=== PATIENT | male | born 1990 | race Caucasian/White ===

== ENCOUNTER 2017-03-19 20:46 | Emergency (ER) | payer OTHER ==
[2017-03-19 21:00] VITALS: RESP 18
--- NOTE | 2017-03-19 21:58 | ED ---
Recheck HPI - General Chief Complaint: Recheck/Abnormal Lab/Rx Stated Complaint: Dr Sent/Recheck Time Seen by Provider: 03/19/17 21:48 Source: patient Mode of arrival: ambulatory Limitations: no limitations - History of Present Illness Initial Comments: Patient states that he needs a refill of his Dilantin. He also has a tooth infection. Patient has no fever or chills. He has no belly, back, chest pain. He has no neck pain or stiffness. He has not had a seizure today. He has no lightheadedness or dizziness. He has no weakness. He is tolerating oral intake. - Related Data Home Medications Medication Instructions Recorded Confirmed Gabapentin [Neurontin] 800 mg PO TID 06/25/14 10/30/15 Previous Rx's Medication Instructions Recorded HYDROcodone/APAP 5-325MG [Harris 1 each PO Q6HR PRN #20 tab 03/09/15 5-325] Hydrocodone/Acetaminophen [Harris 1 each PO Q6HR PRN #10 tab 10/30/15 5-325] Phenytoin Sodium Extended 100 mg PO TID #90 capsule 10/30/15 [Dilantin] Acetaminophen-Codeine 300-30mg 1 each PO Q4H PRN #20 tablet 07/26/16 [Tylenol w/codeine #3] Penicillin V Potassium [Pen Vee K] 500 mg PO QID #40 tab 07/26/16 Phenytoin Sodium Extended 100 mg PO TID #90 capsule 03/19/17 [Dilantin] Allergies Allergy/AdvReac Type Severity Reaction Status Date / Time naproxen Allergy Unknown Verified 03/19/17 21:00 ibuprofen AdvReac Testicular Verified 03/19/17 21:00 Pain pollen Allergy Diarrhea Uncoded 10/30/15 19:15 Review of Systems ROS Statement: Those systems with pertinent positive or pertinent negative responses have been documented in the HPI. ROS Other: All systems not noted in ROS Statement are negative. Past Medical History Past Medical History: Seizure Disorder Additional Past Medical History / Comment(s): chronic pain History of Any Multi-Drug Resistant Organisms: None Reported Additional Past Surgical History / Comment(s): left arm surgery Past Psychological History: Anxiety, Depression Smoking Status: Current every day smoker Past Alcohol Use History: Heavy Past Drug Use History: None Reported General Exam Limitations: no limitations General appearance: alert, in no apparent distress Head exam: Present: atraumatic, normocephalic, normal inspection Eye exam: Present: normal appearance, PERRL, EOMI. Absent: scleral icterus, conjunctival injection, periorbital swelling ENT exam: Present: normal exam, mucous membranes moist Neck exam: Present: normal inspection. Absent: tenderness, meningismus, lymphadenopathy Respiratory exam: Present: normal lung sounds bilaterally. Absent: respiratory distress, wheezes, rales, rhonchi, stridor Cardiovascular Exam: Present: regular rate, normal rhythm, normal heart sounds. Absent: systolic murmur, diastolic murmur, rubs, gallop, clicks GI/Abdominal exam: Present: soft, normal bowel sounds. Absent: distended, tenderness, guarding, rebound, rigid Extremities exam: Present: normal inspection, full ROM, normal capillary refill. Absent: tenderness, pedal edema, joint swelling, calf tenderness Back exam: Present: normal inspection Neurological exam: Present: alert, oriented X3, CN II-XII intact Psychiatric exam: Present: normal affect, normal mood Skin exam: Present: warm, dry, intact, normal color. Absent: rash Course Vital Signs 03/19/17 20:57 Temperature 97.4 F L Pulse Rate 104 H Respiratory 18 Rate Blood Pressure 138/113 O2 Sat by Pulse 96 Oximetry Medical Decision Making - Medical Decision Making Patient is requesting a refill of his Dilantin. I will provide this for him. Regarding the dental infection, there does not appear to be an abscess that would require drainage. His vital signs are normal. He has no neck pain or stiffness. He is tolerating oral intake. He is appropriate for outpatient antibiotic therapy. Disposition Clinical Impression: Encounter for medication refill Disposition: HOME SELF-CARE Condition: Good Instructions: Medicine Refill (ED), Gingivostomatitis (ED) Prescriptions: Phenytoin Sodium Extended [Dilantin] 100 mg PO TID #90 capsule Time of Disposition: 21:57
[2017-03-19 22:03] VITALS: BP 141/70; PULSE 80; TEMP 97.9
== END 2017-03-19 22:06 | disposition home or self-care (01) ==
LOC: EC 20:46
DX: Z76.0 Encounter for issue of repeat prescription (principal); G40.909 Epilepsy, unspecified, not intractable, without status epilepticus; F17.200 Nicotine dependence, unspecified, uncomplicated; Z79.899 Other long term (current) drug therapy; Z88.6 Allergy status to analgesic agent; Z91.048 Other nonmedicinal substance allergy status
CPT/HCPCS: 99282

== ENCOUNTER 2017-04-13 21:12 | Emergency (ER) | payer OTHER ==
--- NOTE | 2017-04-13 22:08 | XR ---
EXAMINATION TYPE: XR foot complete RT DATE OF EXAM: 04/13/2017 9:57 PM COMPARISON: NONE HISTORY: Foot pain TECHNIQUE: 3 views FINDINGS: I see no fracture nor dislocation. Metatarsals are intact. There are no erosions. IMPRESSION: Negative right foot exam.
--- NOTE | 2017-04-13 22:43 | ED ---
Lower Extremity Injury HPI - General Chief Complaint: Extremity Injury, Lower Stated Complaint: foot injury Time Seen by Provider: 04/13/17 21:43 Source: patient, RN notes reviewed, old records reviewed Mode of arrival: ambulatory Limitations: no limitations - History of Present Illness Initial Comments: 26 year old male with right foot pain after twisting it standing on rocks while fishing on Friday. PAtient reports that the pain has persisted since Friday, and needs pain medication. PAtient reports he was able to bear weight on the foot, denies decreased range of motion of toes. Patient reports pain is on lateral aspect of foot. Denies previous injury, peripheral paresthesias. - Related Data Home Medications Medication Instructions Recorded Confirmed Acetaminophen Tab [Tylenol Tab] 650 mg PO Q6HR PRN 03/19/17 03/19/17 Previous Rx's Medication Instructions Recorded Penicillin V Potassium [Pen Vee K] 500 mg PO QID #40 tab 03/19/17 Phenytoin Sodium Extended 100 mg PO TID #90 capsule 03/19/17 [Dilantin] Acetaminophen Tab [Tylenol Tab] 650 mg PO Q6H #20 tablet 04/13/17 Allergies Allergy/AdvReac Type Severity Reaction Status Date / Time naproxen Allergy Unknown Verified 04/13/17 21:45 ibuprofen AdvReac Testicular Verified 04/13/17 21:45 Pain pollen Allergy Diarrhea Uncoded 04/13/17 21:45 Review of Systems ROS Statement: Those systems with pertinent positive or pertinent negative responses have been documented in the HPI. ROS Other: All systems not noted in ROS Statement are negative. Past Medical History Past Medical History: Seizure Disorder Additional Past Medical History / Comment(s): chronic pain History of Any Multi-Drug Resistant Organisms: None Reported Additional Past Surgical History / Comment(s): left arm surgery Past Psychological History: Anxiety, Depression Smoking Status: Current every day smoker Past Alcohol Use History: Heavy Past Drug Use History: None Reported General Exam - General Exam Comments Initial Comments: Well appearing 26 year old male, no distress. Limitations: no limitations General appearance: alert, in no apparent distress Head exam: Present: atraumatic, normocephalic, normal inspection Eye exam: Present: normal appearance, PERRL, EOMI. Absent: scleral icterus, conjunctival injection, periorbital swelling ENT exam: Present: normal exam, mucous membranes moist Neck exam: Present: normal inspection. Absent: tenderness, meningismus, lymphadenopathy Respiratory exam: Present: normal lung sounds bilaterally. Absent: respiratory distress, wheezes, rales, rhonchi, stridor Cardiovascular Exam: Present: regular rate, normal rhythm, normal heart sounds. Absent: systolic murmur, diastolic murmur, rubs, gallop, clicks GI/Abdominal exam: Present: soft, normal bowel sounds. Absent: distended, tenderness, guarding, rebound, rigid Extremities exam: Present: normal inspection, full ROM, normal capillary refill , other (right foot mild tenderness to palpation over lateral aspect of foot, no swelling, erythema. Patient has full range of motion of ankle and toes. ). Absent: tenderness, pedal edema, joint swelling, calf tenderness Back exam: Present: normal inspection Neurological exam: Present: alert, oriented X3, CN II-XII intact Psychiatric exam: Present: normal affect, normal mood Skin exam: Present: warm, dry, intact, normal color. Absent: rash Course Vital Signs 04/13/17 04/13/17 21:42 22:55 Temperature 98.0 F 98 F Pulse Rate 93 78 Respiratory 18 20 Rate Blood Pressure 124/91 126/80 O2 Sat by Pulse 99 98 Oximetry Medical Decision Making - Medical Decision Making 26 year old male with right foot pain after twisting it standing on rocks while fishing on Friday. PAtient reports that the pain has persisted since Friday, and needs pain medication. PAtient reports he was able to bear weight on the foot, denies decreased range of motion of toes. Patient reports pain is on lateral aspect of foot. Denies previous injury, peripheral paresthesias. right foot mild tenderness to palpation over lateral aspect of foot, no swelling, erythema. Patient has full range of motion of ankle and toes. Xray negative. Patient given Rx for crutches, and jose wrap around foot. Disucssed taking tylenol for pain. Patient understands treatment plan and will comply. - Radiology Data Radiology results: report reviewed Negative right foot exam. Disposition Clinical Impression: Sprain of foot, right Disposition: HOME SELF-CARE Condition: Good Instructions: Foot Sprain (ED) Additional Instructions: Rest, ice, elevate foot. Wear Jose wrap. Take Motrin Tylenol for pain. Return to the emergency department if any alarming signs or symptoms occur. Patient can ambulate with crutches as well as follow-up with orthopedic physician of symptoms continue persist after 7-10 more days. Prescriptions: Acetaminophen Tab [Tylenol Tab] 650 mg PO Q6H #20 tablet Referrals: Uday Pennington Jr, DO [Primary Care Provider] - 1-2 days Yassine Lomeli MD [STAFF PHYSICIAN] - 1-2 days Time of Disposition: 22:40
[2017-04-13 22:55] VITALS: BP 126/80; PULSE 78; RESP 20; TEMP 98
--- NOTE | 2017-04-15 07:46 | CDI ---
Documentation Clarification OP Dear JACK Gould: Please do addendum to ED report for HPI and physical exam. Thank you, Padmini Borges Environmental Field Professional I f you have any question, Please contact computer security manager at [phone] mtdD
== END 2017-04-13 22:55 | disposition home or self-care (01) ==
LOC: EC 21:12
DX: S93.601A Unspecified sprain of right foot, initial encounter (principal); F17.200 Nicotine dependence, unspecified, uncomplicated; Z88.6 Allergy status to analgesic agent; Z91.048 Other nonmedicinal substance allergy status; X50.1XXA Overexertion from prolonged static or awkward postures, initial encounter; Y93.89 Activity, other specified
CPT/HCPCS: 99284

== ENCOUNTER 2017-08-30 12:43 | Emergency (ER) | payer OTHER ==
[2017-08-30] MEDS ORDERED: SODIUM CHLORIDE 0.9% 500 ML IV STA (12:58)
[2017-08-30] MEDS ORDERED: IPRATROPIUM-ALBUTEROL 3 ML NEB INHALATION STA (13:14)
[2017-08-30 13:39] LABS: Basophils % (A) 0 %; CH 33.3; CHCM 33.4; Eosinophils % (A) 1 %; HCT 54.5 % (39.0-53.0); HDW 2.28; Luc # (Auto) 0.05; Luc % (Auto) 1; Lymphocytes # (A) 0.7 k/uL (1.0-4.8); Lymphocytes % (A) 10 %; MCH 31.3 pg (25.0-35.0); MCHC 31.3 g/dL (31.0-37.0); MCV 100.2 fL (80.0-100.0); Macrocytosis Slight; Mean Platelet Volume 7.4; Monocytes # (A) 0.3 k/uL (0-1.0); Monocytes % (A) 4 %; Neutrophils # (A) 6.3 k/uL (1.3-7.7); Neutrophils % (A) 85 %; RBC 5.44 m/uL (4.30-5.90); RDW 14.6 % (11.5-15.5); WBC 7.4 k/uL (3.8-10.6); WBC (Perox) 7.08
--- NOTE | 2017-08-30 13:47 | XR ---
EXAMINATION TYPE: XR chest 2V DATE OF EXAM: 08/30/2017 HISTORY: Cough. REFERENCE: Previous study dated 10/30/2015. FINDINGS: The lungs are clear. Pleural space are clear. The heart is not enlarged. IMPRESSION: NORMAL CHEST.
[2017-08-30 13:52] LABS: ALT 28 U/L (21-72); AST 25 U/L (17-59); Alcohol <10 mg/dL; Alkaline Phosphatase 119 U/L (38-126); Anion Gap 13 mmol/L; Blood Urea Nitrogen 6 mg/dL (9-20); Calcium 9.2 mg/dL (8.4-10.2); Carbon Dioxide 20 mmol/L (22-30); Chloride 103 mmol/L (98-107); Glucose 133 mg/dL (74-99); Non-African American GFR(MDRD) >60 (>60 ml/min/1.73 sqM); Potassium 4.4 mmol/L (3.5-5.1); Sodium 136 mmol/L (137-145); Total Bilirubin 0.8 mg/dL (0.2-1.3); Total Protein 6.8 g/dL (6.3-8.2)
[2017-08-30] MEDS ORDERED: ACETAMINOPHEN TAB 500 MG TAB PO STA (14:08)
[2017-08-30] MEDS ORDERED: PHENYTOIN SODIUM INJ 1,000 MG in SODIUM CHLORIDE 0.9% 100 ML IVPB STA (14:09)
--- NOTE | 2017-08-30 14:19 | ED ---
Seizure HPI - General Chief Complaint: Seizure Stated Complaint: SEIZURES Time Seen by Provider: 08/30/17 12:57 Source: patient, EMS, RN notes reviewed Mode of arrival: EMS Limitations: no limitations - History of Present Illness Initial Comments: This an 27-year-old male present emergency department for seizure. Patient states that he normally takes Dilantin for his seizures. Patient is not currently see a neurologist. Patient states that he did. His Dilantin dose today. Patient states recently he had a new prescription states that his dose went from 3 times a day to 1 times a day. Patient states he again saw his doctor who told him this was a mixup. Patient states that he just started taking it again today. Patient states that he does have a slight headache denies any head injury per witness. Patient denies a tongue laceration. Patient daily smoker has had a cough. Denies any chest pain, nausea vomiting diarrhea constipation. - Related Data Home Medications Medication Instructions Recorded Confirmed Albuterol Inhaler [Ventolin Hfa 1 puff INHALATION RT-QID PRN 08/30/17 08/30/17 Inhaler] FLUoxetine HCL [PROzac] 20 mg PO DAILY 08/30/17 08/30/17 Gabapentin [Neurontin] 800 mg PO TID 08/30/17 08/30/17 clonazePAM [KlonoPIN] 1 mg PO BID 08/30/17 08/30/17 traMADol HCL [Ultram] 50 mg PO Q8H PRN 08/30/17 08/30/17 Previous Rx's Medication Instructions Recorded Phenytoin Sodium Extended 100 mg PO TID #90 capsule 03/19/17 [Dilantin] Allergies Allergy/AdvReac Type Severity Reaction Status Date / Time pollen extracts Allergy Unknown Verified 08/30/17 13:06 ibuprofen AdvReac Testicular Verified 08/30/17 12:49 Pain naproxen AdvReac stomach Verified 08/30/17 13:06 pain and cramping NSAIDS (Non-Steroidal AdvReac Stomach Verified 08/30/17 13:06 Anti-Inflamma pain and cramping Review of Systems ROS Statement: Those systems with pertinent positive or pertinent negative responses have been documented in the HPI. ROS Other: All systems not noted in ROS Statement are negative. Past Medical History Past Medical History: Seizure Disorder Additional Past Medical History / Comment(s): chronic pain History of Any Multi-Drug Resistant Organisms: None Reported Additional Past Surgical History / Comment(s): left arm surgery Past Psychological History: Anxiety, Depression Smoking Status: Current every day smoker Past Alcohol Use History: Heavy Past Drug Use History: None Reported General Exam Limitations: no limitations General appearance: alert, in no apparent distress Head exam: Present: atraumatic, normocephalic, normal inspection Eye exam: Present: normal appearance, PERRL, EOMI. Absent: scleral icterus, conjunctival injection, periorbital swelling ENT exam: Present: normal exam, normal oropharynx, mucous membranes moist, TM's normal bilaterally, normal external ear exam Neck exam: Present: normal inspection, full ROM. Absent: tenderness, meningismus, lymphadenopathy Respiratory exam: Present: wheezes (Mild right-sided). Absent: normal lung sounds bilaterally, respiratory distress, rales, rhonchi, stridor Cardiovascular Exam: Present: regular rate, normal rhythm, normal heart sounds. Absent: systolic murmur, diastolic murmur, rubs, gallop, clicks GI/Abdominal exam: Present: soft, normal bowel sounds. Absent: distended, tenderness, guarding, rebound, rigid Neurological exam: Present: alert, oriented X3, CN II-XII intact Skin exam: Present: warm, dry, intact, normal color. Absent: rash Course Vital Signs 08/30/17 08/30/17 08/30/17 12:49 13:17 13:24 Temperature 98.9 F Pulse Rate 106 H 96 96 Respiratory 18 14 14 Rate Blood Pressure 143/96 O2 Sat by Pulse 91 L Oximetry 08/30/17 13:51 Temperature 97 F L Pulse Rate 101 H Respiratory 20 Rate Blood Pressure 133/92 O2 Sat by Pulse 92 L Oximetry Medical Decision Making - Medical Decision Making 27-year-old male present emergency from for seizure. Patient Dilantin level is less than 3. Did discuss this with the patient and this is when he stated that his day planned patient was stuck. Patient was given a loading dose here 1 g. Patient is advised to start taking his Dilantin as directed. Patient's chest x- ray shows no acute abnormality patient does have some bronchospasms consistent with his tobacco use. Acid discussed with the patient that he is currently taking tramadol and which this lowers your seizure threshold. Patient advised to discuss with his PCP who is prescribing this if he should continue or not Return parameters were discussed. I did discuss case with Dr. evans - Lab Data Result diagrams: 08/30/17 13:02 08/30/17 13:02 Lab Results 08/30/17 08/30/17 Range/Units 13:02 13:02 WBC 7.4 (3.8-10.6) k/uL RBC 5.44 (4.30-5.90) m/uL Hgb 17.0 (13.0-17.5) gm/dL Hct 54.5 H (39.0-53.0) % MCV 100.2 H (80.0-100.0) fL MCH 31.3 (25.0-35.0) pg MCHC 31.3 (31.0-37.0) g/dL RDW 14.6 (11.5-15.5) % Plt Count 306 (150-450) k/uL Neutrophils % 85 % Lymphocytes % 10 % Monocytes % 4 % Eosinophils % 1 % Basophils % 0 % Neutrophils # 6.3 (1.3-7.7) k/uL Lymphocytes # 0.7 L (1.0-4.8) k/uL Monocytes # 0.3 (0-1.0) k/uL Eosinophils # 0.0 (0-0.7) k/uL Basophils # 0.0 (0-0.2) k/uL Macrocytosis Slight Sodium 136 L (137-145) mmol/L Potassium 4.4 (3.5-5.1) mmol/L Chloride 103 (98-107) mmol/L Carbon Dioxide 20 L (22-30) mmol/L Anion Gap 13 mmol/L BUN 6 L (9-20) mg/dL Creatinine 0.80 (0.66-1.25) mg/dL Est GFR (MDRD) Af Amer >60 (>60 ml/min/1.73 sqM) Est GFR (MDRD) Non-Af >60 (>60 ml/min/1.73 sqM) Glucose 133 H (74-99) mg/dL Calcium 9.2 (8.4-10.2) mg/dL Total Bilirubin 0.8 (0.2-1.3) mg/dL AST 25 (17-59) U/L ALT 28 (21-72) U/L Alkaline Phosphatase 119 (38-126) U/L Total Protein 6.8 (6.3-8.2) g/dL Albumin 4.3 (3.5-5.0) g/dL Phenytoin <3.0 ug/mL Serum Alcohol <10 mg/dL 08/30/17 14:18 EKG performed at 13:09 sinus tachycardia with incomplete right bundle sudheer block rate of 103 OR interval 168 QRS duration 106 QTC is QTC 360/471 Disposition Clinical Impression: Generalized seizure, Acute bronchospasm, Tobacco dependency Disposition: HOME SELF-CARE Condition: Stable Instructions: Recurrent Seizures in Adults (ED) Additional Instructions: Please return to the Emergency Department if symptoms worsen or any other concerns. Referrals: Uday Pennington Jr, [Primary Care Provider] - 1-2 days Time of Disposition: 14:18
[2017-08-30 14:34] VITALS: RESP 18
[2017-08-30 15:16] VITALS: BP 133/80; PULSE 90; TEMP 98
== END 2017-08-30 15:17 | disposition home or self-care (01) ==
LOC: EC 12:43
DX: R56.9 Unspecified convulsions (principal); J98.01 Acute bronchospasm; F17.200 Nicotine dependence, unspecified, uncomplicated; F41.9 Anxiety disorder, unspecified; F32.9 Major depressive disorder, single episode, unspecified; Z88.6 Allergy status to analgesic agent; Z91.048 Other nonmedicinal substance allergy status
CPT/HCPCS: 99285 ×2; 96365 ×2; 96361 ×2; 36415; 94640; 93005; 80053; 80185; 85025; 80320; 71020; J1165

== ENCOUNTER 2017-09-08 17:55 | Inpatient (IN) | payer MEDICAID, OTHER ==
--- NOTE | 2017-09-08 18:19 | ED ---
General Adult HPI - General Chief complaint: Psychiatric Symptoms Stated complaint: Mental Health Time Seen by Provider: 09/08/17 18:03 Source: patient, RN notes reviewed Mode of arrival: ambulatory Limitations: no limitations - History of Present Illness Initial comments: 27-year-old male presents to the emergency department with a chief complaint of suicidal ideation. He's had a similar last 3 days. He states that he didn't have a plan so he tried to look we'll plan on line and he was redirected to the suicide hotline. Patient denies any pain or discomfort at this time. He denies stiff himself at home. They were concerned due to the fact that he was expressing suicidal thoughts and he thought that he should be seen. She does admit to having suicidal thoughts in the past. He does admit to drinking today and drinking an increased amount over the last few days. Patient denies any recent fever, chills, shortness of breath, chest pain, back pain, abdominal pain , nausea vomiting, numbness or tingling, dysuria or hematuria, constipation or diarrhea, headaches or visual changes, or any other current symptoms. - Related Data Home Medications Medication Instructions Recorded Confirmed Albuterol Inhaler [Ventolin Hfa 1 puff INHALATION RT-QID PRN 08/30/17 09/08/17 Inhaler] FLUoxetine HCL [PROzac] 20 mg PO DAILY 08/30/17 09/08/17 Gabapentin [Neurontin] 800 mg PO TID 08/30/17 09/08/17 clonazePAM [KlonoPIN] 1 mg PO BID 08/30/17 09/08/17 traMADol HCL [Ultram] 50 mg PO Q8H PRN 08/30/17 09/08/17 Previous Rx's Medication Instructions Recorded Phenytoin Sodium Extended 100 mg PO TID #90 capsule 03/19/17 [Dilantin] Allergies Allergy/AdvReac Type Severity Reaction Status Date / Time pollen extracts Allergy Unknown Verified 09/08/17 18:26 ibuprofen AdvReac Testicular Verified 09/08/17 18:26 Pain naproxen AdvReac stomach Verified 09/08/17 18:26 pain and cramping NSAIDS (Non-Steroidal AdvReac Stomach Verified 09/08/17 18:26 Anti-Inflamma pain and cramping Review of Systems ROS Statement: Those systems with pertinent positive or pertinent negative responses have been documented in the HPI. ROS Other: All systems not noted in ROS Statement are negative. Past Medical History Past Medical History: Seizure Disorder Additional Past Medical History / Comment(s): chronic pain History of Any Multi-Drug Resistant Organisms: None Reported Additional Past Surgical History / Comment(s): left arm surgery Past Psychological History: Anxiety, Depression Smoking Status: Current every day smoker Past Alcohol Use History: Heavy Past Drug Use History: None Reported General Exam Limitations: no limitations General appearance: alert, in no apparent distress ENT exam: Present: normal exam, mucous membranes moist Neck exam: Present: normal inspection. Absent: tenderness, meningismus, lymphadenopathy Respiratory exam: Present: normal lung sounds bilaterally. Absent: respiratory distress, wheezes, rales, rhonchi, stridor Cardiovascular Exam: Present: regular rate, normal rhythm, normal heart sounds. Absent: systolic murmur, diastolic murmur, rubs, gallop, clicks GI/Abdominal exam: Present: soft, normal bowel sounds. Absent: distended, tenderness, guarding, rebound, rigid Neurological exam: Present: alert, oriented X3 Psychiatric exam: Present: suicidal ideation. Absent: homicidal ideation Skin exam: Present: warm, dry, intact, normal color. Absent: rash Course Vital Signs 09/08/17 09/08/17 18:03 23:56 Temperature 98.2 F 97.7 F Pulse Rate 111 H 83 Respiratory 20 16 Rate Blood Pressure 145/102 152/90 O2 Sat by Pulse 96 97 Oximetry Medical Decision Making - Medical Decision Making 27-year-old male presents to the emergency department with a chief complaint of suicidal ideation. At this time. This time the patient is cleared to be evaluated by psychiatry. Patient was evaluated by psychiatry. At this time they will be admitting the patient. - Lab Data Lab Results 09/08/17 Range/Units 20:20 Urine Opiates Screen Not Detected (NotDetected) Ur Oxycodone Screen Not Detected (NotDetected) Urine Methadone Screen Not Detected (NotDetected) Ur Propoxyphene Screen Not Detected (NotDetected) Ur Barbiturates Screen Detected H (NotDetected) U Tricyclic Antidepress Not Detected (NotDetected) Ur Phencyclidine Scrn Not Detected (NotDetected) Ur Amphetamines Screen Not Detected (NotDetected) U Methamphetamines Scrn Not Detected (NotDetected) U Benzodiazepines Scrn Detected H (NotDetected) Urine Cocaine Screen Not Detected (NotDetected) U Marijuana (THC) Screen Not Detected (NotDetected) Disposition Clinical Impression: Suicidal ideation Disposition: TRANSFER TO PSYCH HOSP/UNIT Time of Disposition: 00:00
[2017-09-08] MEDS ORDERED: MAG HYDROX/AL HYDROX/SIMETH 30 ML CUP PO PRN (23:59)
[2017-09-08] MEDS ORDERED: MAGNESIUM HYDROXIDE 2,400 MG/10 ML CUP PO PRN (23:59)
[2017-09-09] MEDS: NICOTINE 21MG/24HR PATCH TRANSDERM SCH ×2 (01:23→08:21)
[2017-09-09] MEDS: clonazePAM 1 MG TAB PO SCH ×3 (01:23→21:00)
[2017-09-09] MEDS: GABAPENTIN 300 MG CAP PO SCH ×2 (01:23→08:21)
[2017-09-09] MEDS: PHENYTOIN SODIUM EXTENDED 100 MG CAP PO SCH ×4 (01:24→21:01)
[2017-09-09 03:58] VITALS: BMI 17.6
[2017-09-09] MEDS: ALBUTEROL INHALER 60 PUFF/8 GM INHALER INHALATION PRN (08:18)
[2017-09-09] MEDS ORDERED: FLUoxetine HCL 20 MG CAP PO SCH (09:00)
[2017-09-09] MEDS ORDERED: INFLUENZA VACCINE (6 MOS+) 60 MCG/0.5 ML SYRINGE IM ONE (09:00)
[2017-09-09 09:58] LABS: Basophils % (A) 0 %; CH 31.6; CHCM 31.7; Eosinophils # (A) 0.1 k/uL (0-0.7); Eosinophils % (A) 1 %; HCT 53.1 % (39.0-53.0); HDW 2.13; HGB 16.9 gm/dL (13.0-17.5); Luc # (Auto) 0.09; Luc % (Auto) 2; Lymphocytes # (A) 1.3 k/uL (1.0-4.8); Lymphocytes % (A) 23 %; MCH 31.8 pg (25.0-35.0); MCHC 31.8 g/dL (31.0-37.0); MCV 100.1 fL (80.0-100.0); Macrocytosis Slight; Mean Platelet Volume 7.1; Monocytes # (A) 0.3 k/uL (0-1.0); Monocytes % (A) 4 %; Neutrophils # (A) 4.1 k/uL (1.3-7.7); Neutrophils % (A) 71 %; WBC 5.9 k/uL (3.8-10.6); WBC (Perox) 5.77
[2017-09-09 11:11] LABS: ALT 41 U/L (21-72); AST 43 U/L (17-59); Alkaline Phosphatase 120 U/L (38-126); Anion Gap 11 mmol/L; Blood Urea Nitrogen 9 mg/dL (9-20); Calcium 10.1 mg/dL (8.4-10.2); Carbon Dioxide 23 mmol/L (22-30); Chloride 104 mmol/L (98-107); Glucose 134 mg/dL (74-99); Non-African American GFR(MDRD) >60 (>60 ml/min/1.73 sqM); Potassium 4.2 mmol/L (3.5-5.1); Sodium 138 mmol/L (137-145); Total Bilirubin 0.9 mg/dL (0.2-1.3); Total Protein 7.7 g/dL (6.3-8.2)
[2017-09-09] MEDS: GABAPENTIN 400 MG CAP PO SCH ×2 (16:04→21:00)
--- NOTE | 2017-09-09 16:34 | P.HP ---
Psychiatric H&P - . H&P Date: 09/09/17 History & Physical: Allergies Allergy/AdvReac Type Severity Reaction Status Date / Time pollen extracts Allergy Unknown Verified 09/08/17 18:26 ibuprofen AdvReac Testicular Verified 09/08/17 18:26 Pain naproxen AdvReac stomach Verified 09/08/17 18:26 pain and cramping NSAIDS (Non-Steroidal AdvReac Stomach Verified 09/08/17 18:26 Anti-Inflamma pain and cramping Vital Signs Temp 97.6 F 09/09/17 03:41 Pulse 86 09/09/17 03:41 Resp 16 09/09/17 03:41 BP 152/90 09/08/17 23:56 Pulse Ox 96 09/09/17 03:41 Intake & Output 09/08/17 09/09/17 09/09/17 18:59 06:59 18:59 Weight 60.328 kg 59.2 kg 59.2 kg Laboratory Last Values WBC 5.9 k/uL (3.8-10.6) 09/09/17 09:25 RBC 5.30 m/uL (4.30-5.90) 09/09/17 09:25 Hgb 16.9 gm/dL (13.0-17.5) 09/09/17 09:25 Hct 53.1 % (39.0-53.0) H 09/09/17 09:25 MCV 100.1 fL (80.0-100.0) H 09/09/17 09:25 MCH 31.8 pg (25.0-35.0) 09/09/17 09:25 MCHC 31.8 g/dL (31.0-37.0) 09/09/17 09:25 RDW 15.0 % (11.5-15.5) 09/09/17 09:25 Plt Count 369 k/uL (150-450) 09/09/17 09:25 Neutrophils % 71 % 09/09/17 09:25 Lymphocytes % 23 % 09/09/17 09:25 Monocytes % 4 % 09/09/17 09:25 Eosinophils % 1 % 09/09/17 09:25 Basophils % 0 % 09/09/17 09:25 Neutrophils # 4.1 k/uL (1.3-7.7) 09/09/17 09:25 Lymphocytes # 1.3 k/uL (1.0-4.8) 09/09/17 09:25 Monocytes # 0.3 k/uL (0-1.0) 09/09/17 09:25 Eosinophils # 0.1 k/uL (0-0.7) 09/09/17 09:25 Basophils # 0.0 k/uL (0-0.2) 09/09/17 09:25 Macrocytosis Slight 09/09/17 09:25 Sodium 138 mmol/L (137-145) 09/09/17 09:25 Potassium 4.2 mmol/L (3.5-5.1) 09/09/17 09:25 Chloride 104 mmol/L (98-107) 09/09/17 09:25 Carbon Dioxide 23 mmol/L (22-30) 09/09/17 09:25 Anion Gap 11 mmol/L 09/09/17 09:25 BUN 9 mg/dL (9-20) 09/09/17 09:25 Creatinine 0.80 mg/dL (0.66-1.25) 09/09/17 09:25 Est GFR (MDRD) Af Amer >60 (>60 ml/min/1.73 sqM) 09/09/17 09:25 Est GFR (MDRD) Non-Af >60 (>60 ml/min/1.73 sqM) 09/09/17 09:25 Glucose 134 mg/dL (74-99) H 09/09/17 09:25 Calcium 10.1 mg/dL (8.4-10.2) 09/09/17 09:25 Total Bilirubin 0.9 mg/dL (0.2-1.3) 09/09/17 09:25 AST 43 U/L (17-59) 09/09/17 09:25 ALT 41 U/L (21-72) 09/09/17 09:25 Alkaline Phosphatase 120 U/L (38-126) 09/09/17 09:25 Total Protein 7.7 g/dL (6.3-8.2) 09/09/17 09:25 Albumin 4.8 g/dL (3.5-5.0) 09/09/17 09:25 TSH 1.630 mIU/L (0.465-4.680) 09/09/17 09:25 Urine Opiates Screen Not Detected (NotDetected) 09/08/17 20:20 Ur Oxycodone Screen Not Detected (NotDetected) 09/08/17 20:20 Urine Methadone Screen Not Detected (NotDetected) 09/08/17 20:20 Ur Propoxyphene Screen Not Detected (NotDetected) 09/08/17 20:20 Ur Barbiturates Screen Detected (NotDetected) H 09/08/17 20:20 Phenytoin 4.6 ug/mL 09/09/17 09:25 U Tricyclic Antidepress Not Detected (NotDetected) 09/08/17 20:20 Ur Phencyclidine Scrn Not Detected (NotDetected) 09/08/17 20:20 Ur Amphetamines Screen Not Detected (NotDetected) 09/08/17 20:20 U Methamphetamines Scrn Not Detected (NotDetected) 09/08/17 20:20 U Benzodiazepines Scrn Detected (NotDetected) H 09/08/17 20:20 Urine Cocaine Screen Not Detected (NotDetected) 09/08/17 20:20 U Marijuana (THC) Screen Not Detected (NotDetected) 09/08/17 20:20 09/09/17 15:59 IDENTIFYING DATA: Pt is a 27yo CM who presented to the ED with c/o suicidal ideations HPI: Upon evaluation, pt states that he has been dealing with depression for several years but progressively worsening in the past couple of months. Reports that he has had accompanying intermittent SI with depression, but never had the urge to act on thoughts until last week. States that last week he was kicked out of his grandmother's home due to her frustration with patient's heavy drinking and his medications were thrown out at that time. He reports thoughts of hanging himself, jumping in front of a car, "always try to think of least painful" methods. Denies SI at this time as he feels like he is doing something to better himself by being in the hospital now. Associated depressive symptoms include sleep disturbance (onset and maintenance), decreased appetite, low energy, (+)anhedonia, hopelessness and worthlessness and poor concentration. Pt denies HI and AVH at this time as well. PAST PSYCHIATRIC HISTORY: no past psychiatric hospitalizations or outpatient treatment. Was prescribed Prozac 20mg QD by his PCP ~1 month ago. Also, has been on Klonopin for several years. No h/o suicide attempts. PMH: Seizure Disorder (last seizure was 1 week ago; prior to this pt states 1 year ago). PSH: L arm surgery MEDICATIONS: Home Medications Medication Instructions Recorded Confirmed Albuterol Inhaler [Ventolin Hfa 1 puff INHALATION RT-QID PRN 08/30/17 09/08/17 Inhaler] FLUoxetine HCL [PROzac] 20 mg PO DAILY 08/30/17 09/08/17 Gabapentin [Neurontin] 800 mg PO TID 08/30/17 09/08/17 clonazePAM [KlonoPIN] 1 mg PO BID 08/30/17 09/08/17 traMADol HCL [Ultram] 50 mg PO Q8H PRN 08/30/17 09/08/17 Previous Rx's Medication Instructions Recorded Phenytoin Sodium Extended 100 mg PO TID #90 capsule 03/19/17 [Dilantin] CHEMICAL DEPENDENCY HISTORY: 1ppd smoker; ETOH - started at 14yo with increased consumption over the years; currently drinking 1 pint up to 1/5 vodka daily. No illicit substances. FAMILY PSYCHIATRIC HISTORY: none SOCIAL HISTORY: Pt recently kicked out of his grandmother's house and planning to stay with his sister on discharge; but essentially homeless at this time. States that he dropped out of school in the 9th grade as he was hanging out with the wrong crowd. He is currently unemployed. Previously on SSI after his arm injury but let his review lapse. Pt has never been and does not have any children. States that he grew up with both parents until they when he was 14yo and pt continued to live with his mother. His father due to seizure disorder 5 years later. Pt has one sister that he has a good relationship with. Denies any h/o abuse. MENTAL STATUS EXAM: Pt is a 27yo well-groomed male who appears stated age. He is cooperative and pleasant. Speech is spontaneous with normal rate and volume. Mood is depressed and affect slightly restricted. Denies SI, HI and AVH. Thought process is linear and logical. AAO x 3. Memory grossly intact. Judgment and insight is fair. STRENGTHS/WEAKNESSES: willingness to undergo treatment, medication compliance/ poor coping skills, heavy use of alcohol INTELLECTUAL FUNCTIONING: average ASSESSMENT: 1. Unspecified Depression 2. R/O Major Depressive Disorder, recurrent, moderate 3. R/O Alcohol Induced Major Depressive Episode 4. Alcohol Use Disorder PLAN: Will admit to 3 MHU for further stabilization, treatment and safety monitoring. Place patient on routine precautions. Encourage attendance in group activities on the unit. Medicine consulted for routine H and P. Will increase Prozac to 20mg daily and start Trazodone 50mg QHS for sleep. Discuss discharge planning with treatment team. SW to obtain collateral information.
[2017-09-09] MEDS: ACETAMINOPHEN TAB 325 MG TAB PO PRN (16:38)
[2017-09-09] MEDS ORDERED: traZODone HCL 50 MG TAB PO SCH (21:00)
[2017-09-10 06:55] VITALS: RESP 16
[2017-09-10] MEDS: PHENYTOIN SODIUM EXTENDED 100 MG CAP PO SCH ×3 (08:15→20:13)
[2017-09-10] MEDS: clonazePAM 1 MG TAB PO SCH ×2 (08:15→20:13)
[2017-09-10] MEDS: GABAPENTIN 400 MG CAP PO SCH ×3 (08:15→20:13)
[2017-09-10] MEDS: FLUoxetine HCL 20 MG CAP PO SCH (08:15)
[2017-09-10] MEDS: NICOTINE 21MG/24HR PATCH TRANSDERM SCH (08:16)
[2017-09-10] MEDS: ALBUTEROL INHALER 60 PUFF/8 GM INHALER INHALATION PRN ×3 (09:13→21:42)
[2017-09-10] MEDS: ACETAMINOPHEN TAB 325 MG TAB PO PRN ×3 (09:52→22:49)
--- NOTE | 2017-09-10 13:32 | P.PN ---
Progress Note - Text Progress Note Date: 09/10/17 27yo CM admitted on 09/08/17 due to suicidal ideations and chronic alcohol use Last 24hrs: Patient laying in bed this morning during rounds and states that he has a headache. Reports that he feels his outlook has been more positive since being here. Denies SI, but states "not really, when I hurt like I do that 's when I have those kind of thoughts, I just want to end the pain". He c/o chronic back and L arm pain and requesting medications to help relieve this. States that he did not sleep well last night. [place] that the Trazodone helped him fall asleep but not stay asleep. Also, attributes some of his sleep difficulty to his pain. He has been compliant with medications and no reported adverse effects. He has not been attending groups. SW did discuss rehab with patient and he voiced interest; however, he has not made an effort to contact any rehab programs as of yet. MSE: Pt is a 27yo well-groomed male who appears stated age. He is cooperative and pleasant. Speech is spontaneous with normal rate and volume. Mood is depressed and affect slightly restricted. Denies SI, HI and AVH. Thought process is linear and logical. AAO x 3. Memory grossly intact. Judgment and insight is fair. STRENGTHS/WEAKNESSES: willingness to undergo treatment, medication compliance/ poor coping skills, heavy use of alcohol INTELLECTUAL FUNCTIONING: average ASSESSMENT: 1. Unspecified Depression 2. R/O Major Depressive Disorder, recurrent, moderate 3. R/O Alcohol Induced Major Depressive Episode 4. Alcohol Use Disorder PLAN: Continue Prozac 40mg QD. Increase Trazodone to 100mg QHS. Medicine team to see pt for routine H and P; can also evaluate and provide any recommendations for pain management. Continue to monitor for safety. Encourage patient to participate in group activities on the unit. Discharge planning to be discussed with treatment team. Pt encouraged to contact rehab programs to aide in his sobriety following discharge.
[2017-09-10] MEDS ORDERED: LORazepam 2 MG/ML INJ IV PRN ×3 (13:57)
--- NOTE | 2017-09-10 14:03 | P.CONS ---
History of Present Illness - Reason for Consult Consult date: 09/10/17 Medical Management - Chief Complaint Suicidal ideation - History of Present Illness 27-year-old male who presented to the emergency room on 09/08/2017 with a chief complaint of suicidal thoughts. He was admitted to the mental health unit. Dr. Carrillo was consulted for medical management. The patient has a history of depression and states he was recently started on Prozac 20 mg by his primary care physician. The patient also has a history of seizure disorder, chronic pain, anxiety, and depression. He is a current every day smoker and admits to heavy drinking with up to a pint of vodka daily. The patient was seen and examined by Dr. Carrillo. Aside from his psychiatric concerns, the patient stated that he has used his albuterol inhaler twice today. The patient states he does not take a long-acting inhaler. He states he used to have one but does not anymore. Denies chest pain or pressure. Denies nausea or vomiting. He does complain of pain to his left arm which she states is chronic from an accident years ago when he was carrying a toilet to the trash and it fell in the patients was almost severed. The patient states he has underwent 7 surgeries to his left arm. Toxicology results are positive for barbiturates and benzodiazepines. Lab work was reviewed. His blood pressure is stable. His heart rate is labile and ranges between 80 and 120. TSH was normal at 1.630. He is afebrile. Review of Systems GENERAL: Patient denies fever. Denies chills. EYES: Denies blurred vision. Denies vision changes. Denies eye pain. EARS, NOSE, MOUTH, & THROAT: Denies headache. Denies sore throat. Denies ear pain. RESPIRATORY: Denies cough. Denies shortness of breath. Denies sputum production. Denies hemoptysis. CARDIOVASCULAR: Denies chest pain or pressure. Denies palpitations. Denies arrhythmias. GASTROINTESTINAL: Denies abdominal pain. Denies diarrhea. Denies constipation. Denies nausea. Denies vomiting. Denies heartburn. Denies blood in the stool. GENITOURINARY: Denies urinary frequency. Denies burning. Denies dysuria. Denies cloudy urine. Denies blood in the urine. MUSCULOSKELETAL: Positive for left arm chronic pain. Denies myalgias. Denies joint swelling. Denies decreased range of motion beyond patients baseline. INTEGUMENTARY: Denies pruitis. Denies rash. PSYCHIATRIC: Positive for recent suicidal ideation. Positive for depression. Negative for homicial ideations. ENDOCRINE: Denies weight change. Denies polydipsia. Denies polyuria. HEMATOLOGIC: Denies bleeding disorders. Past Medical History Past Medical History: Seizure Disorder Additional Past Medical History / Comment(s): chronic pain History of Any Multi-Drug Resistant Organisms: None Reported Additional Past Surgical History / Comment(s): left arm surgery Past Anesthesia/Blood Transfusion Reactions: No Reported Reaction Smoking Status: Current every day smoker Medications and Allergies Home Medications Medication Instructions Recorded Confirmed Type Phenytoin Sodium Extended 100 mg PO TID #90 capsule 03/19/17 09/08/17 Rx [Dilantin] Albuterol Inhaler [Ventolin Hfa 1 puff INHALATION RT-QID PRN 08/30/17 09/08/17 History Inhaler] FLUoxetine HCL [PROzac] 20 mg PO DAILY 08/30/17 09/08/17 History Gabapentin [Neurontin] 800 mg PO TID 08/30/17 09/08/17 History clonazePAM [KlonoPIN] 1 mg PO BID 08/30/17 09/08/17 History traMADol HCL [Ultram] 50 mg PO Q8H PRN 08/30/17 09/08/17 History Allergies Allergy/AdvReac Type Severity Reaction Status Date / Time pollen extracts Allergy Unknown Verified 09/08/17 18:26 ibuprofen AdvReac Testicular Verified 09/08/17 18:26 Pain naproxen AdvReac stomach Verified 09/08/17 18:26 pain and cramping NSAIDS (Non-Steroidal AdvReac Stomach Verified 09/08/17 18:26 Anti-Inflamma pain and cramping Physical Exam Vitals: Vital Signs Temp Pulse Resp BP 09/10/17 06:54 97.5 F L 97 16 131/72 09/09/17 21:00 120 H 18 145/99 GENERAL: This is a 27-year-old male in no apparent distress at the time of examination. Pleasant and cooperative. HEENT: Head is atraumatic, normocephalic. Pupils are equal, round, and reactive to light. Sclerae anicteric. Conjunctivae are clear. Mucus membranes of the mouth are moist. Neck is supple. RESPIRATORY: Clear to ausculation. No wheezes, rales, or rhonchi. No use of accessory muscles. Patient maintaining oxygen saturation greater than 92%. No chest wall tenderness is noted on palpation or with deep breathing. CARDIOVASCULAR: Regular rate and rhythm. S1 and S2 noted. No systolic or diastolic murmur auscultated. No JVD noted. No S3 or S4 noted. GASTROINTESTINAL: No distention noted. Abdomen soft and round. Normal active bowel sounds auscultated -4 quadrants. No pain or tenderness noted upon palpation. INTEGUMENTARY: No cyanosis. No jaundice. No rashes noted. No cellulitis noted. Multiple scars noted to left arm. EXTREMITIES: 2+ peripheral pulses. No evidence of peripheral edema. No calf tenderness noted. Muscle atrophy and contracture noted to left hand. NEUROLOGIC: Cranial nerves II-XII intact. PSYCHIATRIC: Awake, alert, and oriented X 3. Appropriate affect. Intact judgement and insight. Results CBC & Chem 7: 09/09/17 09:25 09/09/17 09:25 Assessment and Plan Plan: ASSESSMENT: Depression, unspecified, with suicidal ideations History of seizure disorder History of asthma Nicotine dependence, patient is a current cigarette smoker Alcohol use disorder PLAN: -Continue psychiatric care per Dr. Castellon -Home meds as appropriate -Continue Dilantin -Monitor for alcohol withdrawal. Begin CIWA protocol -Nicotine patch -Albuterol inhaler PRN -Will begin Symbicort inhaler 2 puffs BID -Per Dr Carrillo, begin Mobic 15mg daily. Aware that patient gets abdominal pain with NSAIDs -Monitor labs -Monitor vital signs and address as appropriate -Social work on consult Nurse practitioner note has been reviewed by physician. Signing provider agrees with the documented findings, assessment, and plan of care.
[2017-09-10] MEDS: MELOXICAM 7.5 MG TAB PO SCH (15:52)
[2017-09-10] MEDS: THIAMINE 100 MG TAB PO SCH (16:56)
[2017-09-10] MEDS: traZODone HCL 50 MG TAB PO SCH (20:13)
[2017-09-10] MEDS: SYMBICORT 80-4.5 MCG INHALER INHALATION SCH (21:44)
[2017-09-11] MEDS: NICOTINE 21MG/24HR PATCH TRANSDERM SCH (08:10)
[2017-09-11] MEDS: GABAPENTIN 400 MG CAP PO SCH ×3 (08:11→20:06)
[2017-09-11] MEDS: MELOXICAM 7.5 MG TAB PO SCH (08:11)
[2017-09-11] MEDS: PHENYTOIN SODIUM EXTENDED 100 MG CAP PO SCH ×3 (08:11→20:06)
[2017-09-11] MEDS: FLUoxetine HCL 20 MG CAP PO SCH (08:11)
[2017-09-11] MEDS: clonazePAM 1 MG TAB PO SCH ×2 (08:12→20:06)
[2017-09-11] MEDS: SYMBICORT 80-4.5 MCG INHALER INHALATION SCH ×2 (09:52→19:16)
[2017-09-11] MEDS: ALBUTEROL INHALER 60 PUFF/8 GM INHALER INHALATION PRN ×2 (09:53→19:17)
[2017-09-11] MEDS: MULTIVITAMINS, THERA 1 EACH TAB PO SCH (10:49)
[2017-09-11] MEDS: THIAMINE 100 MG TAB PO SCH ×2 (10:49→17:10)
[2017-09-11] MEDS: ACETAMINOPHEN TAB 325 MG TAB PO PRN ×2 (15:03→23:41)
--- NOTE | 2017-09-11 19:41 | P.PN ---
Progress Note - Text Progress Note Date: 09/11/17 27yo CM admitted on 09/08/17 due to suicidal ideations and chronic alcohol use Last 24hrs: Patient up and active on the unit this morning. Now attending groups. States that he slept better with the increased dose of Trazodone. Denies SI. States that his main issue is his anxiety and requesting to take Klonopin during the afternoon instead of waiting until bedtime for his second dose. States that mobic is causing his stomach pain and would prefer not to take it. Reports that he continues to have urges to drink but plans to abstain upon discharge. Has started the process to get into a rehab program and awaiting a response from the program. Also planning to continue on Nicotine patches and quit smoking. MSE: Pt is a 27yo well-groomed male who appears stated age. He is cooperative and pleasant. Speech is spontaneous with normal rate and volume. Mood is depressed and affect slightly restricted. Denies SI, HI and AVH. Thought process is linear and logical. AAO x 3. Memory grossly intact. Judgment and insight is fair. STRENGTHS/WEAKNESSES: willingness to undergo treatment, medication compliance/ poor coping skills, heavy use of alcohol INTELLECTUAL FUNCTIONING: average ASSESSMENT: 1. Unspecified Depression 2. R/O Major Depressive Disorder, recurrent, moderate 3. R/O Alcohol Induced Major Depressive Episode 4. Alcohol Use Disorder PLAN: Continue medication regimen. Continue to monitor for safety. Encourage patient to participate in group activities on the unit. Discharge planning to be discussed with treatment team. Planned to DC today; however, having difficulty getting patient's Dilantin filled early so will delay until tomorrow to see if we can get that straightened out.
[2017-09-11] MEDS: traZODone HCL 50 MG TAB PO SCH (20:06)
[2017-09-12 01:27] VITALS: BP 134/87; PULSE 97; TEMP 97.7
[2017-09-12] MEDS: NICOTINE 21MG/24HR PATCH TRANSDERM SCH (08:08)
[2017-09-12] MEDS: clonazePAM 1 MG TAB PO SCH ×2 (08:09→14:11)
[2017-09-12] MEDS: FLUoxetine HCL 20 MG CAP PO SCH (08:09)
[2017-09-12] MEDS: GABAPENTIN 400 MG CAP PO SCH ×2 (08:09→15:09)
[2017-09-12] MEDS: MELOXICAM 7.5 MG TAB PO SCH (08:09)
[2017-09-12] MEDS: PHENYTOIN SODIUM EXTENDED 100 MG CAP PO SCH ×2 (08:11→15:09)
[2017-09-12] MEDS: MULTIVITAMINS, THERA 1 EACH TAB PO SCH (12:16)
[2017-09-12] MEDS: THIAMINE 100 MG TAB PO SCH (12:16)
[2017-09-12] MEDS: SYMBICORT 80-4.5 MCG INHALER INHALATION SCH (12:18)
[2017-09-12] MEDS: ACETAMINOPHEN TAB 325 MG TAB PO PRN (12:48)
[2017-09-12] MEDS: ALBUTEROL INHALER 60 PUFF/8 GM INHALER INHALATION PRN (12:49)
--- NOTE | 2017-10-13 18:26 | P.PN ---
Progress Note - Text Progress Note Date: 09/12/17 27yo CM admitted on 09/08/17 due to suicidal ideations and chronic alcohol use Last 24hrs: Patient doing well on the unit and attending groups. Sleep improveed. Denies SI. He is compliant with medications and does not report any adverse effects. There was a delay in planned discharge yesterday due to pharmacy not being able to fill his Dilantin prescription. This problem was solved and patient now able to get the prescription as written. SW had been attempting to reach patient's sister for a possible family meeting; however, sister had been unavailable until today at which time she informed social work coordinator that her brother will not be able to stay with her after all. This did upset the patient but he still remained calm and cooperative with discharge plan. MSE: Pt is a 27yo well-groomed male who appears stated age. He is cooperative and pleasant. Speech is spontaneous with normal rate and volume. Mood is euthymic and affect appropriate. Denies SI, HI and AVH. Thought process is linear and logical. AAO x 3. Memory grossly intact. Judgment and insight is fair. ASSESSMENT: 1. Unspecified Depression 2. R/O Major Depressive Disorder, recurrent, moderate 3. R/O Alcohol Induced Major Depressive Episode 4. Alcohol Use Disorder PLAN: Continue medication regimen. Discharge today. Pt has intake appointment at [facility] scheduled for 09/26/17.
--- NOTE | 2017-10-13 18:48 | P.DS ---
Providers Date of admission: 09/08/17 23:53 Expected date of discharge: 09/12/17 Attending physician: Mary Castellon, DO Consults: 09/08/17 23:59 Consult Physician Routine Consulting Provider: Uday Pennington Jr Consult Reason/Comments: H and P Do you want consulting provider notified?: Yes Primary care physician: Uday Pennington - Discharge Diagnosis(es) (1) Depressive disorder, not elsewhere classified Status: Acute (2) Alcohol use disorder Status: Acute Hospital Course: Upon admission, patient denied SI as he felt like he was doing something to better himself by being in the hospital. He reported associated depressive symptoms that included sleep disturbance (onset and maintenance), decreased appetite, low energy, (+)anhedonia, hopelessness and worthlessness and poor concentration. Patient had been taking Prozac 20mg for ~1 month prior to admission; therefore, this dose was increased to 40mg daily for improvement in his mood. Trazodone was also initiated for improvement in patient's sleep and ultimately titrated to 150mg QHS. Over the course of hospitalization, patient did continue to deny SI and his mood improved with brighter affect. Patient initially displayed isolating behaviors but eventually began to interact with other patients on the unit and attend group activities. He was compliant with his psychotropic medications and did not report any adverse effects. In addition to depression, pt c/o chronic pain and requested pain medications. Medicine team did evaluate this patient and started him on Mobic. Patient did c /o GI discomfort with this medication and decided that he did not want to continuing taking this. Overall patient did well and showed improvement throughout his stay. He also reported a desire to abstain from alcohol use following discharge and SW discussed various options for rehab with this patient. He did contact [facility] during hospitalization and scheduled an intake appointment for 09/26/17. Patient Condition at Discharge: Stable Plan - Discharge Summary Discharge Rx Participant: No New Discharge Prescriptions: New FLUoxetine HCL [PROzac] 40 mg PO DAILY #60 cap Nicotine 21Mg/24Hr Patch [Habitrol] 1 patch TRANSDERM DAILY #30 patch Thiamine [Vitamin B-1] 100 mg PO BID@1200,1700 #60 tab traZODone HCL [Desyrel] 150 mg PO HS #90 tab Continue Albuterol Inhaler [Ventolin Hfa Inhaler] 1 puff INHALATION RT-QID PRN #1 inhaler PRN Reason: Shortness Of Breath clonazePAM [KlonoPIN] 1 mg PO BID #60 tab Gabapentin [Neurontin] 800 mg PO TID 14 Days #84 capsule Phenytoin Sodium Extended [Dilantin] 100 mg PO TID #90 capsule Discontinued FLUoxetine HCL [PROzac] 20 mg PO DAILY Discharge Medication List Albuterol Inhaler [Ventolin Hfa Inhaler] 1 puff INHALATION RT-QID PRN #1 inhaler 09/11/17 [Rx] FLUoxetine HCL [PROzac] 40 mg PO DAILY #60 cap 09/11/17 [Rx] Gabapentin [Neurontin] 800 mg PO TID 14 Days #84 capsule 09/11/17 [Rx] Nicotine 21Mg/24Hr Patch [Habitrol] 1 patch TRANSDERM DAILY #30 patch 09/11/17 [ Rx] Phenytoin Sodium Extended [Dilantin] 100 mg PO TID #90 capsule 09/11/17 [Rx] Thiamine [Vitamin B-1] 100 mg PO BID@1200,1700 #60 tab 09/11/17 [Rx] clonazePAM [KlonoPIN] 1 mg PO BID #60 tab 09/11/17 [Rx] traZODone HCL [Desyrel] 150 mg PO HS #90 tab 09/11/17 [Rx] Follow up Appointment(s)/Referral(s): [facility] [Outside] - 09/16/17 12:00 pm (Intake 09/16/17 at 12 :00pm) [facility] [Outside] - 09/26/17 9:30 am (Intake 09/26/17 at 9: 30am) Uday Pennington Jr, [Primary Care Provider] - 1-2 days Patient Instructions/Handouts: Depression (GEN), Abuse of Alcohol (GEN), Suicide Prevention for Adults (GEN) Activity/Diet/Wound Care/Special Instructions: Activity and diet as tolerated. Avoid the use of street drugs and alcohol. Take all medications as prescribed. When you are in need of refills on your medications please contact your medical provider and/or outpatient psychiatrist to have this done. Please go to scheduled outpatient appointment for aftercare treatment. If symptoms return or become worse call the crisis line at [phone] and/or go to the nearest emergency room for an evaluation. Discharge Disposition: HOME SELF-CARE
== END 2017-09-12 16:13 | disposition home or self-care (01) | DRG 754 ==
LOC: EC 17:55 → 3MHU 23:53
PROVIDERS: ADMIT Psychiatry & Neurology Psychiatry; ATTEND Psychiatry & Neurology Psychiatry
DX: F32.9 Major depressive disorder, single episode, unspecified (principal); G40.909 Epilepsy, unspecified, not intractable, without status epilepticus; R45.851 Suicidal ideations; F10.10 Alcohol abuse, uncomplicated; F17.210 Nicotine dependence, cigarettes, uncomplicated; J45.909 Unspecified asthma, uncomplicated; G47.9 Sleep disorder, unspecified; R45.84 Anhedonia; R51 Headache; G89.29 Other chronic pain; M79.602 Pain in left arm; M54.9 Dorsalgia, unspecified; F41.9 Anxiety disorder, unspecified; Z88.8 Allergy status to other drugs, medicaments and biological substances; Z79.899 Other long term (current) drug therapy; Z82.0 Family history of epilepsy and other diseases of the nervous system; Z59.0 Homelessness; Z86.69 Personal history of other diseases of the nervous system and sense organs; Z91.048 Other nonmedicinal substance allergy status
CPT/HCPCS: 80053; 80185; 80306; 82075; 84443; 85025; 90686; 94640; 99285

== ENCOUNTER 2017-11-12 18:12 | Emergency (ER) | payer MEDICAID, OTHER ==
[2017-11-12] MEDS ORDERED: ACET/COD 300 MG/30 MG STARTER PACK 6 TAB BTL PO STA (18:53)
--- NOTE | 2017-11-12 18:56 | ED ---
ENT HPI - General Chief complaint: Dental/Oral Stated complaint: Toothache Time Seen by Provider: 11/12/17 18:42 Source: patient, RN notes reviewed Mode of arrival: ambulatory Limitations: no limitations - History of Present Illness Initial comments: This is a 27-year-old male who presents to the emergency department with chief complaint of dental pain. Patient states that for the last few days he's been having left lower dental pain. He says that he made an appointment with [facility] in [place] but that he is unable to get an appointment until April. Patient states the pain is constant with intermittent increases in intensity. Denies any radiation to the neck. He does state that he has a headache. Denies fever, chills, chest pain, shortness of breath, abdominal pain , nausea or vomiting, constipation or diarrhea, dysuria or hematuria, numbness or tingling, headache or vision changes. - Related Data Previous Rx's Medication Instructions Recorded Albuterol Inhaler [Ventolin Hfa 1 puff INHALATION RT-QID PRN #1 09/11/17 Inhaler] inhaler FLUoxetine HCL [PROzac] 40 mg PO DAILY #60 cap 09/11/17 Gabapentin [Neurontin] 800 mg PO TID 14 Days #84 capsule 09/11/17 Phenytoin Sodium Extended 100 mg PO TID #90 capsule 09/11/17 [Dilantin] clonazePAM [KlonoPIN] 1 mg PO BID #60 tab 09/11/17 traZODone HCL [Desyrel] 150 mg PO HS #90 tab 09/11/17 Penicillin V Potassium [Pen Vee K] 500 mg PO QID 10 Days tab 11/12/17 Allergies Allergy/AdvReac Type Severity Reaction Status Date / Time pollen extracts Allergy Unknown Verified 11/12/17 19:01 ibuprofen AdvReac Testicular Verified 11/12/17 19:01 Pain naproxen AdvReac stomach Verified 11/12/17 19:01 pain and cramping NSAIDS (Non-Steroidal AdvReac Stomach Verified 11/12/17 19:01 Anti-Inflamma pain and cramping Review of Systems ROS Statement: Those systems with pertinent positive or pertinent negative responses have been documented in the HPI. ROS Other: All systems not noted in ROS Statement are negative. Past Medical History Past Medical History: Seizure Disorder Additional Past Medical History / Comment(s): chronic pain History of Any Multi-Drug Resistant Organisms: None Reported Additional Past Surgical History / Comment(s): left arm surgery Past Anesthesia/Blood Transfusion Reactions: No Reported Reaction Past Psychological History: Anxiety, Depression Smoking Status: Current every day smoker Past Alcohol Use History: Rare Past Drug Use History: None Reported General Exam - General Exam Comments Initial Comments: General: Awake and alert, well-developed; in no apparent distress. HEENT: Head atraumatic, normocephalic. Pupils are equal, round and reactive to light. Extraocular movements intact. Oropharynx moist without erythema or exudate. Poor dentition throughout with multiple fractured teeth and dental caries. Patient has tenderness on palpation of tooth #23. Manly is missing. No areas of fluctuance or masses noted. Neck: Supple. Normal ROM. Cardiovascular: Regular rate and rhythm. No murmurs, rubs or gallops. Chest symmetrical. Respiratory: Lungs clear to auscultation bilaterally. No wheezes, rales or rhonchi. Normal respiratory effort with no use of accessory muscles. Musculoskeletal: Normal ROM, no tenderness bilateral upper and lower extremities. Ambulating normally. Skin: [place], warm and dry without rashes or lesions. Neurological: Alert and oriented x3. CN II-XII grossly intact. Speech is fluent and answers are appropriate. No focal neuro deficits. Psychiatric: Normal mood and affect. No overt signs of depression or anxiety noted. Limitations: no limitations Course Vital Signs 11/12/17 18:28 Temperature 98.9 F Pulse Rate 70 Respiratory 18 Rate Blood Pressure 147/101 O2 Sat by Pulse 100 Oximetry Medical Decision Making - Medical Decision Making This is a 27-year-old male who presents for evaluation of dental pain. Tooth # 23 is missing crown and it is painful on palpation. No areas of fluctuance or masses noted. I spoke with patient about his insurance. He states that he has [employer]. I told him that if he has healthy [employer] plan that he also has dental coverage with [facility]. Patient states that he believes he does have healthy [employer] plan. He states that he will call local dentists tomorrow to try to get an earlier appointment. Patient is no acute distress at this time. He will be discharged home with prescription for antibiotics. Patient is in agreement voices understanding. All questions were answered. Disposition Clinical Impression: Toothache Disposition: HOME SELF-CARE Condition: Good Instructions: Toothache (ED) Additional Instructions: Please take medications as prescribed. Please call local dentists tomorrow to follow-up. Please follow up with primary care provider within 1-2 days. Return to emergency department if symptoms should worsen or any concerns arise. Prescriptions: Penicillin V Potassium [Pen Vee K] 500 mg PO QID 10 Days tab Referrals: Uday Pennington Jr, [Primary Care Provider] - 1-2 days Time of Disposition: 19:07
[2017-11-12 23:35] VITALS: BP 147/101; PULSE 70; RESP 18; TEMP 98.9
== END 2017-11-12 19:10 | disposition home or self-care (01) ==
LOC: EC 18:12
DX: K08.89 Other specified disorders of teeth and supporting structures (principal); F17.200 Nicotine dependence, unspecified, uncomplicated; Z88.6 Allergy status to analgesic agent; Z91.018 Allergy to other foods
CPT/HCPCS: 99282

== ENCOUNTER 2018-04-13 22:24 | Emergency (ER) | payer OTHER ==
[2018-04-13] MEDS ORDERED: ACETAMINOPHEN TAB 500 MG TAB PO STA (23:39)
[2018-04-14 00:30] LABS: Amphetamine Screen,Urine Not Detected (NotDetected); Barbiturate Screen,Urine Not Detected (NotDetected); Benzodiazepines Screen,Urine Detected (NotDetected); Cocaine Screen,Urine Not Detected (NotDetected); Methadone Screen, Urine Not Detected (NotDetected); Opiate Screen,Urine Not Detected (NotDetected); Oxycodone Screen, Urine Not Detected (NotDetected); Phencyclidine Screen,Urine Not Detected (NotDetected); Tricyclic Antidepressant,Urine Not Detected (NotDetected); Urn Cannabinoid Scrn Not Detected (NotDetected)
[2018-04-14] MEDS ORDERED: NICOTINE 21MG/24HR PATCH TRANSDERM STA (00:30)
--- NOTE | 2018-04-14 03:36 | ED ---
Psych HPI - General Source: patient, police, RN notes reviewed, old records reviewed Mode of arrival: ambulatory <Rufina Mina - Last Filed: 04/14/18 03:34> <Anuel Brown - Last Filed: 04/14/18 10:28> - General Chief Complaint: Psychiatric Symptoms Stated Complaint: ETOH/suicidal Time Seen by Provider: 04/13/18 23:12 - History of Present Illness Initial Comments: Patient's 27-year-old male with a history of alcohol and tox medication presents emergency department with police escort. Patient was found at [facility] knocking on people's doors, and being drunk and disorderly. The safety instruction police officer brought the Patient in here because he was stating that he had suicidal comments. Statements such as "I want to slit my throat". "I have a deeath wish". Patient does report to saying these things. Patient was petitioned. Patient states that he is not quite reviewed the statements. He is quite intoxicated. Denies any falls or head injuries. Patient states that he has no other complaints like to rest and go to sleep. (Rufina Mina) - Related Data Home Medications Medication Instructions Recorded Confirmed FLUoxetine HCL [PROzac] 40 mg PO DAILY 04/13/18 04/13/18 Gabapentin [Neurontin] 800 mg PO TID 04/13/18 04/13/18 Phenytoin Sodium Extended 100 mg PO TID 04/13/18 04/13/18 [Dilantin] clonazePAM [KlonoPIN] 1 mg PO BID 04/13/18 04/13/18 traZODone HCL 150 mg PO HS 04/13/18 04/13/18 Allergies Allergy/AdvReac Type Severity Reaction Status Date / Time pollen extracts Allergy Unknown Verified 04/13/18 23:41 ibuprofen AdvReac Testicular Verified 04/13/18 23:41 Pain naproxen AdvReac stomach Verified 04/13/18 23:41 pain and cramping NSAIDS (Non-Steroidal AdvReac Stomach Verified 04/13/18 23:41 Anti-Inflamma pain and cramping Review of Systems ROS Other: All systems not noted in ROS Statement are negative. <Rufina Mina - Last Filed: 04/14/18 03:34> ROS Other: All systems not noted in ROS Statement are negative. <Anuel Brown - Last Filed: 04/14/18 10:28> ROS Statement: Those systems with pertinent positive or pertinent negative responses have been documented in the HPI. Past Medical History Past Medical History: Seizure Disorder Additional Past Medical History / Comment(s): chronic pain History of Any Multi-Drug Resistant Organisms: None Reported Additional Past Surgical History / Comment(s): left arm surgery Past Anesthesia/Blood Transfusion Reactions: No Reported Reaction Past Psychological History: Anxiety, Depression Smoking Status: Current every day smoker Past Alcohol Use History: Heavy Past Drug Use History: None Reported <Rufina Mina - Last Filed: 04/14/18 03:34> General Exam Limitations: no limitations General appearance: alert, appears intoxicated Head exam: Present: atraumatic, normocephalic, normal inspection Eye exam: Present: normal appearance, PERRL, EOMI. Absent: scleral icterus, conjunctival injection, periorbital swelling ENT exam: Present: normal exam, mucous membranes moist Neck exam: Present: normal inspection. Absent: tenderness, meningismus, lymphadenopathy Respiratory exam: Present: normal lung sounds bilaterally. Absent: respiratory distress, wheezes, rales, rhonchi, stridor Cardiovascular Exam: Present: regular rate, normal rhythm, normal heart sounds. Absent: systolic murmur, diastolic murmur, rubs, gallop, clicks GI/Abdominal exam: Present: soft, normal bowel sounds. Absent: distended, tenderness, guarding, rebound, rigid Extremities exam: Present: normal inspection, full ROM, normal capillary refill. Absent: tenderness, pedal edema, joint swelling, calf tenderness Back exam: Present: normal inspection Neurological exam: Present: alert, oriented X3, CN II-XII intact Psychiatric exam: Present: normal affect, normal mood Skin exam: Present: warm, dry, intact, normal color. Absent: rash <Rufina Mina - Last Filed: 04/14/18 03:34> <Anuel Brown - Last Filed: 04/14/18 10:28> - General Exam Comments Initial Comments: This patient's a 27-year-old now. No significant distress. (Rufina Mina) Course <Rufina Mina - Last Filed: 04/14/18 03:34> <Anuel Brown - Last Filed: 04/14/18 10:28> Vital Signs 04/13/18 04/14/18 23:05 06:31 Temperature 97.7 F 98.2 F Pulse Rate 110 H 98 Respiratory 18 17 Rate Blood Pressure 143/66 134/57 O2 Sat by Pulse 96 98 Oximetry - Reevaluation(s) Reevaluation #1: 04/14/18 10:25 Patient was determined to be sober was evaluated by the psychiatric service. He rested coupling throughout the morning. He currently is not suicidal or homicidal. He will be discharged. Per the psychiatric service patient does have a safety plan. (Anuel Brown) Medical Decision Making <Rufina Mina - Last Filed: 04/14/18 03:34> <Anuel Brown - Last Filed: 04/14/18 10:28> - Medical Decision Making Patient is a 27-year-old male presents emergency Department toxic. He made suicidal statements and is brought in by stress department. Patient has been petitioned. Since being in emergency department he has been resting comfortably and calm. Patient is not sober until 8:30 AM where he'll be evaluated by EPS. He is transferred to Dr. Schneider at 4 AM. (Rufina Mina) - Lab Data Lab Results 04/13/18 Range/Units 23:29 Urine Opiates Screen Not Detected (NotDetected) Ur Oxycodone Screen Not Detected (NotDetected) Urine Methadone Screen Not Detected (NotDetected) Ur Propoxyphene Screen Not Detected (NotDetected) Ur Barbiturates Screen Not Detected (NotDetected) U Tricyclic Antidepress Not Detected (NotDetected) Ur Phencyclidine Scrn Not Detected (NotDetected) Ur Amphetamines Screen Not Detected (NotDetected) U Methamphetamines Scrn Not Detected (NotDetected) U Benzodiazepines Scrn Detected H (NotDetected) Urine Cocaine Screen Not Detected (NotDetected) U Marijuana (THC) Screen Not Detected (NotDetected) Disposition <Rufina Mina - Last Filed: 04/14/18 03:34> Is patient prescribed a controlled substance at d/c from ED?: No <Anuel Brown - Last Filed: 04/14/18 10:28> Clinical Impression: Alcohol intoxication, Adjustment reaction Disposition: HOME SELF-CARE Condition: Good Instructions: Mood Disorders (ED), Alcohol Dependence (ED), Alcohol Intoxication (ED), Abuse of Alcohol (ED) Referrals: Uday Pennington Jr, DO [Primary Care Provider] - 1-2 days
[2018-04-14 06:32] VITALS: TEMP 98.2
[2018-04-14 10:57] VITALS: BP 131/83; PULSE 91; RESP 18
== END 2018-04-14 10:56 | disposition home or self-care (01) ==
LOC: EC 22:24
DX: F10.129 Alcohol abuse with intoxication, unspecified (principal); F43.20 Adjustment disorder, unspecified; R45.851 Suicidal ideations; G40.909 Epilepsy, unspecified, not intractable, without status epilepticus; F32.9 Major depressive disorder, single episode, unspecified; F41.9 Anxiety disorder, unspecified; F17.200 Nicotine dependence, unspecified, uncomplicated; Z79.899 Other long term (current) drug therapy; Z88.6 Allergy status to analgesic agent; Z91.048 Other nonmedicinal substance allergy status
CPT/HCPCS: 82075 ×2; 80306; 99284; S4990

== ENCOUNTER → 2018-04-29 | Outpatient (CLI) | payer OTHER ==
--- NOTE | 2018-04-30 09:51 | XR ---
EXAMINATION TYPE: XR knee 4V RT DATE OF EXAM: 04/29/2018 COMPARISON: NONE HISTORY: Pain TECHNIQUE: Four views are submitted. FINDINGS: Joint spaces are preserved. Osseous structures are intact. No acute fracture seen. IMPRESSION: 1. No acute fracture or dislocation.
== END | disposition home or self-care (01) ==
LOC: RADXRMAIN 15:41
PROVIDERS: ATTEND Family Medicine
DX: M25.561 Pain in right knee (principal)

== ENCOUNTER 2018-05-05 14:58 | Observation (INO) | payer OTHER ==
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
[2018-05-05 16:14] LABS: Basophils % (A) 1 %; Eosinophils # (A) 0.1 k/uL (0-0.7); Eosinophils % (A) 2 %; HCT 46.6 % (39.0-53.0); HGB 15.3 gm/dL (13.0-17.5); Lymphocytes # (A) 1.8 k/uL (1.0-4.8); Lymphocytes % (A) 50 %; MCHC 32.8 g/dL (31.0-37.0); MCV 97.4 fL (80.0-100.0); Mean Platelet Volume 6.7; Monocytes # (A) 0.3 k/uL (0-1.0); Monocytes % (A) 7 %; Neutrophils # (A) 1.4 k/uL (1.3-7.7); Neutrophils % (A) 38 %; Platelet Count 380 k/uL (150-450); RBC 4.78 m/uL (4.30-5.90); RDW 15.8 % (11.5-15.5); WBC 3.6 k/uL (3.8-10.6)
[2018-05-05 16:26] LABS: ALT 32 U/L (21-72); AST 33 U/L (17-59); Albumin 4.4 g/dL (3.5-5.0); Alkaline Phosphatase 81 U/L (38-126); Anion Gap 13 mmol/L; Blood Urea Nitrogen 9 mg/dL (9-20); Carbon Dioxide 25 mmol/L (22-30); Chloride 110 mmol/L (98-107); Glucose 95 mg/dL (74-99); Lipase 511 U/L (23-300); Potassium 4.5 mmol/L (3.5-5.1); Sodium 148 mmol/L (137-145); Total Bilirubin 0.1 mg/dL (0.2-1.3); Total Protein 6.9 g/dL (6.3-8.2)
[2018-05-05 16:37] LABS: Alcohol 348 mg/dL
[2018-05-05] MEDS ORDERED: SODIUM CHLORIDE 0.9% 1,000 ML with MVI, ADULT NO.4 WITH VIT K 10 ML, THIAMINE 100 MG, F... IV ONE ×4 (17:06)
[2018-05-05] MEDS ORDERED: LORazepam 2 MG/ML INJ IV PRN ×3 (17:07)
[2018-05-05] MEDS ORDERED: NALOXONE 0.4 MG/ML 1 ML VIAL IV PRN (17:08)
[2018-05-05] MEDS ORDERED: ONDANSETRON 4 MG/2 ML VIAL IVP PRN (17:08)
[2018-05-05] MEDS ORDERED: IPRATROPIUM-ALBUTEROL 3 ML NEB INHALATION PRN (19:34)
[2018-05-05] MEDS: GABAPENTIN 400 MG CAP PO SCH (21:07)
[2018-05-05] MEDS: PHENYTOIN SODIUM EXTENDED 100 MG CAP PO SCH (21:07)
[2018-05-06] MEDS ORDERED: SODIUM CHLORIDE 0.9% 1,000 ML with MVI, ADULT NO.4 WITH VIT K 10 ML, THIAMINE 100 MG, F... IV ONE ×4 (01:04)
[2018-05-06] MEDS: NICOTINE 21MG/24HR PATCH TRANSDERM SCH ×2 (01:24→10:59)
[2018-05-06] MEDS ORDERED: FLUoxetine HCL 20 MG CAP PO SCH (09:00)
[2018-05-06] MEDS ORDERED: HYDROcodone/APAP 7.5-325MG 1 EACH TAB PO PRN (10:44)
[2018-05-06] MEDS: GABAPENTIN 400 MG CAP PO SCH (10:59)
[2018-05-06] MEDS: PHENYTOIN SODIUM EXTENDED 100 MG CAP PO SCH (10:59)
[2018-05-06] MEDS ORDERED: clonazePAM 1 MG TAB PO SCH (11:00)
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
[2018-05-06] MEDS ORDERED: THIAMINE 100 MG TAB PO SCH (12:00)
[2018-05-06 13:39] VITALS: BMI 18.4
[2018-05-06 15:41] VITALS: BP 137/80; PULSE 73; RESP 16; TEMP 98.8
== END 2018-05-06 15:57 | disposition home or self-care (01) ==
LOC: EC 14:58 → 4MS4W 17:08
PROVIDERS: ADMIT Family Medicine; ATTEND Family Medicine
DX: F10.129 Alcohol abuse with intoxication, unspecified (principal); Y90.8 Blood alcohol level of 240 mg/100 ml or more; J45.909 Unspecified asthma, uncomplicated; F17.210 Nicotine dependence, cigarettes, uncomplicated; G40.909 Epilepsy, unspecified, not intractable, without status epilepticus; F41.9 Anxiety disorder, unspecified; F32.9 Major depressive disorder, single episode, unspecified; G89.29 Other chronic pain; Z79.899 Other long term (current) drug therapy; Z88.6 Allergy status to analgesic agent; Z88.8 Allergy status to other drugs, medicaments and biological substances; Z91.048 Other nonmedicinal substance allergy status; Z79.891 Long term (current) use of opiate analgesic
CPT/HCPCS: 99285 ×2; 96365 ×2; 96366 ×2; 36415; 80053; 83690; 83735; 85025; 80320 ×2; G0378 ×2; S4990; J3411 ×2

== ENCOUNTER 2019-09-29 01:48 | Emergency (ER) | payer OTHER ==
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
[2019-09-29 02:02] VITALS: TEMP 96.9
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
[2019-09-29 03:57] VITALS: BP 106/73; PULSE 72; RESP 16
== END 2019-09-29 06:39 | disposition home or self-care (01) ==
LOC: EC 01:48
DX: S09.93XA Unspecified injury of face, initial encounter (principal); F10.129 Alcohol abuse with intoxication, unspecified; G89.29 Other chronic pain; J30.1 Allergic rhinitis due to pollen; G40.909 Epilepsy, unspecified, not intractable, without status epilepticus; F41.9 Anxiety disorder, unspecified; F32.9 Major depressive disorder, single episode, unspecified; F17.200 Nicotine dependence, unspecified, uncomplicated; Z79.1 Long term (current) use of non-steroidal anti-inflammatories (NSAID); Z88.6 Allergy status to analgesic agent; Z79.899 Other long term (current) drug therapy; W10.9XXA Fall (on) (from) unspecified stairs and steps, initial encounter; Y93.89 Activity, other specified; Y92.59 Other trade areas as the place of occurrence of the external cause
CPT/HCPCS: 70450; 72125; 99284

== ENCOUNTER 2019-11-13 02:49 | Emergency (ER) | payer OTHER ==
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
[2019-11-13 07:04] VITALS: TEMP 98.3
[2019-11-13 12:32] VITALS: BP 128/92; PULSE 74; RESP 18
== END 2019-11-13 12:24 | disposition home or self-care (01) ==
LOC: EC 02:49
DX: S02.2XXA Fracture of nasal bones, initial encounter for closed fracture (principal); R94.02 Abnormal brain scan; M54.2 Cervicalgia; G40.909 Epilepsy, unspecified, not intractable, without status epilepticus; G89.29 Other chronic pain; F32.9 Major depressive disorder, single episode, unspecified; F41.9 Anxiety disorder, unspecified; F17.200 Nicotine dependence, unspecified, uncomplicated; Z88.6 Allergy status to analgesic agent; Z91.048 Other nonmedicinal substance allergy status; Z79.1 Long term (current) use of non-steroidal anti-inflammatories (NSAID); Z79.899 Other long term (current) drug therapy; Y04.0XXA Assault by unarmed brawl or fight, initial encounter; Y93.01 Activity, walking, marching and hiking; Y92.481 Parking lot as the place of occurrence of the external cause
CPT/HCPCS: 70450; 70486; 72125; 99284

== ENCOUNTER 2019-12-06 00:56 | Observation (INO) | payer OTHER ==
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
[2019-12-06 02:54] LABS: Partial Thromboplastin Time 22.2 sec (22.0-30.0); Prothrombin Time 10.2 sec (9.0-12.0)
[2019-12-06 02:55] LABS: Basophils % (A) 0 %; Eosinophils % (A) 0 %; HCT 44.4 % (39.0-53.0); HGB 14.2 gm/dL (13.0-17.5); Lymphocytes # (A) 1.1 k/uL (1.0-4.8); Lymphocytes % (A) 10 %; MCH 31.5 pg (25.0-35.0); MCV 98.5 fL (80.0-100.0); Monocytes # (A) 0.3 k/uL (0-1.0); Monocytes % (A) 3 %; Neutrophils # (A) 9.8 k/uL (1.3-7.7); Neutrophils % (A) 86 %; Platelet Count 342 k/uL (150-450); RBC 4.51 m/uL (4.30-5.90); WBC 11.4 k/uL (3.8-10.6)
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
[2019-12-06 03:15] LABS: African American GFR (CKD) >90 (>60 ml/min/1.73 sqM); Anion Gap 13 mmol/L; Blood Urea Nitrogen 9 mg/dL (9-20); Carbon Dioxide 24 mmol/L (22-30); Chloride 108 mmol/L (98-107); Glucose 92 mg/dL (74-99); Non-African American GFR(CKD) >90 (>60 ml/min/1.73 sqM); Potassium 4.3 mmol/L (3.5-5.1); Sodium 145 mmol/L (137-145)
[2019-12-06 03:25] LABS: Alcohol 328 mg/dL
[2019-12-06] MEDS ORDERED: NALOXONE 0.4 MG/ML 1 ML VIAL IV PRN (04:57)
[2019-12-06] MEDS: SODIUM CHLORIDE 0.9% 1,000 ML IV SCH ×2 (05:32→12:21)
[2019-12-06] MEDS ORDERED: THIAMINE 100 MG/ML 2 ML VIAL IM STA (11:34)
[2019-12-06] MEDS ORDERED: LORazepam 2 MG/ML INJ IV PRN ×3 (11:34)
[2019-12-06] MEDS ORDERED: ACETAMINOPHEN TAB 325 MG TAB PO PRN (11:41)
[2019-12-06] MEDS ORDERED: 0.9% NACL WITH KCL 20 MEQ/L 1,000 ML with MVI, ADULT NO.4 WITH VIT K 10 ML, THIAMINE 10... IV SCH ×4 (11:45)
[2019-12-06] MEDS ORDERED: PANTOPRAZOLE 40 MG/10 ML VIAL IVP SCH (11:45)
[2019-12-06] MEDS ORDERED: TETANUS-DIPHTHERIA TOX (PF) 0.5 ML VIAL IM ONE (13:58)
[2019-12-06] MEDS ORDERED: DIPH,PERTUS(ACELL)TETVAC-LF 0.5 ML VIAL IM ONE (14:15)
[2019-12-06 14:34] LABS: ALT 24 U/L (4-49); AST 57 U/L (17-59); African American GFR (CKD) >90 (>60 ml/min/1.73 sqM); Alkaline Phosphatase 93 U/L (38-126); Anion Gap 9 mmol/L; Blood Urea Nitrogen 8 mg/dL (9-20); Calcium 8.7 mg/dL (8.4-10.2); Carbon Dioxide 22 mmol/L (22-30); Chloride 108 mmol/L (98-107); Glucose 121 mg/dL (74-99); Magnesium 1.9 mg/dL (1.6-2.3); Non-African American GFR(CKD) >90 (>60 ml/min/1.73 sqM); Potassium 4.3 mmol/L (3.5-5.1); Sodium 139 mmol/L (137-145); Total Bilirubin 0.6 mg/dL (0.2-1.3); Total Protein 6.7 g/dL (6.3-8.2)
[2019-12-06 14:52] VITALS: BP 127/71; PULSE 98; RESP 15; TEMP 98
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
== END 2019-12-06 17:59 | disposition home or self-care (01) ==
LOC: EC 00:56 → 4SSUR 04:57
PROVIDERS: ADMIT Family Medicine; ATTEND Family Medicine
DX: F10.120 Alcohol abuse with intoxication, uncomplicated (principal); S09.93XA Unspecified injury of face, initial encounter; Y90.8 Blood alcohol level of 240 mg/100 ml or more; G40.909 Epilepsy, unspecified, not intractable, without status epilepticus; G89.29 Other chronic pain; F41.9 Anxiety disorder, unspecified; F32.9 Major depressive disorder, single episode, unspecified; F17.200 Nicotine dependence, unspecified, uncomplicated; M54.2 Cervicalgia; R51 Headache; Z23 Encounter for immunization; S02.2XXD Fracture of nasal bones, subsequent encounter for fracture with routine healing; J32.1 Chronic frontal sinusitis; J32.0 Chronic maxillary sinusitis; Z88.6 Allergy status to analgesic agent; Z88.8 Allergy status to other drugs, medicaments and biological substances; Z79.891 Long term (current) use of opiate analgesic; Z79.899 Other long term (current) drug therapy; Y04.0XXA Assault by unarmed brawl or fight, initial encounter; X58.XXXD Exposure to other specified factors, subsequent encounter
CPT/HCPCS: 96361; 96365; 96366; 96372; 96375; 99285; 36415; 80053; 80048; 83735; 85025; 85610; 85730; 72170; 71045; 72125; 70486; 70450; 90715; G0378; G0480; J2060; J3411; C9113; 80320

== ENCOUNTER 2019-12-18 17:51 | Observation (INO) | payer OTHER ==
[2019-12-18] MEDS ORDERED: SODIUM CHLORIDE 0.9% 1,000 ML IV STA (18:29)
[2019-12-18] MEDS ORDERED: THIAMINE 100 MG/ML 2 ML VIAL IM STA (18:30)
[2019-12-18] MEDS ORDERED: SODIUM CHLORIDE 0.9% 1,000 ML with MVI, ADULT NO.4 WITH VIT K 10 ML, THIAMINE 100 MG, F... IV ONE ×4 (18:30)
[2019-12-18] MEDS ORDERED: LORazepam 2 MG/ML INJ IV PRN ×3 (18:30)
[2019-12-18] MEDS ORDERED: NALOXONE 0.4 MG/ML 1 ML VIAL IV PRN (18:31)
[2019-12-18] MEDS ORDERED: ONDANSETRON 4 MG/2 ML VIAL IVP PRN (18:31)
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
[2019-12-18] MEDS: THIAMINE 100 MG TAB PO SCH (18:48)
[2019-12-18 19:05] LABS: Basophils # (A) 0.2 k/uL (0-0.2); Basophils % (A) 2 %; Eosinophils # (A) 0.1 k/uL (0-0.7); Eosinophils % (A) 1 %; HCT 47.5 % (39.0-53.0); HGB 15.3 gm/dL (13.0-17.5); Lymphocytes # (A) 2.2 k/uL (1.0-4.8); Lymphocytes % (A) 31 %; MCH 32.6 pg (25.0-35.0); MCHC 32.2 g/dL (31.0-37.0); MCV 101.4 fL (80.0-100.0); Macrocytosis Slight; Mean Platelet Volume 7.1; Monocytes # (A) 0.3 k/uL (0-1.0); Monocytes % (A) 4 %; Neutrophils # (A) 4.3 k/uL (1.3-7.7); Neutrophils % (A) 60 %; Platelet Count 460 k/uL (150-450); RBC 4.69 m/uL (4.30-5.90); RDW 14.8 % (11.5-15.5); WBC 7.1 k/uL (3.8-10.6)
[2019-12-18 19:18] LABS: ALT 25 U/L (4-49); AST 68 U/L (17-59); African American GFR (CKD) >90 (>60 ml/min/1.73 sqM); Albumin 5.2 g/dL (3.5-5.0); Alkaline Phosphatase 94 U/L (38-126); Anion Gap 9 mmol/L; Blood Urea Nitrogen 13 mg/dL (9-20); Calcium 9.3 mg/dL (8.4-10.2); Carbon Dioxide 28 mmol/L (22-30); Chloride 108 mmol/L (98-107); Glucose 102 mg/dL (74-99); Magnesium 2.4 mg/dL (1.6-2.3); Non-African American GFR(CKD) >90 (>60 ml/min/1.73 sqM); Phosphorus 4.9 mg/dL (2.5-4.5); Sodium 145 mmol/L (137-145); Total Bilirubin 1.1 mg/dL (0.2-1.3); Total Protein 8.6 g/dL (6.3-8.2)
[2019-12-18 19:28] LABS: Alcohol 404 mg/dL; Potassium 5.7 mmol/L (3.5-5.1)
[2019-12-18 20:06] LABS: Appearance,Urine Clear (Clear); Bilirubin,Urine Negative (Negative); Blood,Urine Negative (Negative); Color,Urine Yellow; Glucose,Urine (UA) Negative (Negative); Ketones,Urine Negative (Negative); Leukocyte Esterase,Urine Negative (Negative); Nitrite,Urine Negative (Negative); Protein,Urine Trace (Negative); Specific Gravity,Urine 1.014 (1.001-1.035); Urobilinogen,Urine <2.0 mg/dL (<2.0)
[2019-12-18 20:18] LABS: Amphetamine Screen,Urine Not Detected (NotDetected); Barbiturate Screen,Urine Not Detected (NotDetected); Benzodiazepines Screen,Urine Not Detected (NotDetected); Cocaine Screen,Urine Not Detected (NotDetected); Methadone Screen, Urine Not Detected (NotDetected); Opiate Screen,Urine Not Detected (NotDetected); Oxycodone Screen, Urine Not Detected (NotDetected); Phencyclidine Screen,Urine Not Detected (NotDetected); Tricyclic Antidepressant,Urine Not Detected (NotDetected); Urn Cannabinoid Scrn Not Detected (NotDetected)
[2019-12-19] MEDS: THIAMINE 100 MG TAB PO SCH ×2 (07:29→15:14)
[2019-12-19 09:40] LABS: Basophils % (A) 1 %; Eosinophils # (A) 0.1 k/uL (0-0.7); Eosinophils % (A) 1 %; HCT 40.9 % (39.0-53.0); HGB 13.3 gm/dL (13.0-17.5); Lymphocytes % (A) 17 %; MCH 32.6 pg (25.0-35.0); MCHC 32.5 g/dL (31.0-37.0); MCV 100.2 fL (80.0-100.0); Macrocytosis Slight; Monocytes # (A) 0.3 k/uL (0-1.0); Monocytes % (A) 5 %; Neutrophils # (A) 4.3 k/uL (1.3-7.7); Neutrophils % (A) 74 %; Platelet Count 372 k/uL (150-450); RBC 4.08 m/uL (4.30-5.90); RDW 14.9 % (11.5-15.5); WBC 5.8 k/uL (3.8-10.6)
[2019-12-19 09:50] LABS: African American GFR (CKD) >90 (>60 ml/min/1.73 sqM); Anion Gap 5 mmol/L; Blood Urea Nitrogen 9 mg/dL (9-20); Carbon Dioxide 26 mmol/L (22-30); Chloride 105 mmol/L (98-107); Glucose 83 mg/dL (74-99); Magnesium 1.9 mg/dL (1.6-2.3); Non-African American GFR(CKD) >90 (>60 ml/min/1.73 sqM); Potassium 4.7 mmol/L (3.5-5.1); Sodium 136 mmol/L (137-145)
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
[2019-12-19 12:46] VITALS: BMI 19.4
[2019-12-19 15:35] VITALS: BP 124/89; PULSE 69; RESP 16; TEMP 97
--- NOTE | 2020-01-18 15:34 | P.DS ---
Providers Date of admission: 12/18/19 19:01 Expected date of discharge: 12/18/19 Attending physician: Uday Pennington Consults: 12/18/19 18:30 Consult Physician Stat Consulting Provider: Christiano Garay Reason/Comments: Suicidal Do you want consulting provider notified?: Yes Primary care physician: [facility] Course: 29-year-old patient admitted yesterday evaluation for alcohol intoxication with thoughts of self harm. There patient was brought to the emergency room by EMS in stable condition. He was unsure why someone called EMS as he was only walking down the street. Admits to daily consumption of alcohol having suicidal thoughts of cutting his throat and wrist. Denied any fever, shortness of breath, chest pain, abdominal pain, nausea vomiting, diarrhea, constipation dizziness, weakness, hematuria, urinary urgency, headache or visual changes. addendum: Patient felt much beeter. He denied any suicidal or homicidal ideations after the the alcohol decrease his bloodstream. Is requesting to be discharged home Patient Condition at Discharge: Fair Plan - Discharge Summary New Discharge Prescriptions: No Action Pantoprazole Sodium [Protonix] 40 mg PO DAILY #30 tablet. Albuterol Inhaler [Ventolin Hfa Inhaler] 1 - 2 puff INHALATION RT-Q6H PRN PRN Reason: Shortness Of Breath Nicotine 21Mg/24Hr Patch [Habitrol] 1 patch TRANSDERM DAILY QUEtiapine [SEROquel] 100 mg PO HS #30 tab Phenytoin Sodium Extended [Dilantin] 100 mg PO TID #90 cap Gabapentin 800 mg PO TID@0800,1200,1800 #90 tab Hydrochlorothiazide 12.5 mg PO DAILY #30 cap Multivitamins, Thera [Multivitamin (formulary)] 1 tab PO DAILY #30 tablet Gabapentin [Neurontin] 400 mg PO HS #30 cap FLUoxetine HCL [PROzac] 40 mg PO DAILY #30 cap Thiamine [Vitamin B-1] 100 mg PO DAILY #30 tablet Bisoprolol-Hctz 10-6.25 mg [Ziac 10-6.25 MG] 1 tab PO DAILY #30 tab Discharge Medication List Pantoprazole Sodium [Protonix] 40 mg PO DAILY #30 tablet. 12/06/19 [Rx] Albuterol Inhaler [Ventolin Hfa Inhaler] 1 - 2 puff INHALATION RT-Q6H PRN 12/22/19 [History] Nicotine 21Mg/24Hr Patch [Habitrol] 1 patch TRANSDERM DAILY 12/22/19 [History] Bisoprolol-Hctz 10-6.25 mg [Ziac 10-6.25 MG] 1 tab PO DAILY #30 tab 01/11/20 [Rx] FLUoxetine HCL [PROzac] 40 mg PO DAILY #30 cap 01/11/20 [Rx] Gabapentin 800 mg PO TID@0800,1200,1800 #90 tab 01/11/20 [Rx] Gabapentin [Neurontin] 400 mg PO HS #30 cap 01/11/20 [Rx] Hydrochlorothiazide 12.5 mg PO DAILY #30 cap 01/11/20 [Rx] Multivitamins, Thera [Multivitamin (formulary)] 1 tab PO DAILY #30 tablet 01/11/20 [Rx] Phenytoin Sodium Extended [Dilantin] 100 mg PO TID #90 cap 01/11/20 [Rx] QUEtiapine [SEROquel] 100 mg PO HS #30 tab 01/11/20 [Rx] Thiamine [Vitamin B-1] 100 mg PO DAILY #30 tablet 01/11/20 [Rx] Follow up Appointment(s)/Referral(s): Uday Pennington Jr, [Primary Care Provider] - 1-2 days Patient Instructions/Handouts: Alcohol Intoxication (DC) Discharge Disposition: HOME SELF-CARE
== END 2019-12-19 16:26 | disposition home or self-care (01) ==
LOC: EC 17:51 → 6NMEDSUR 19:01
PROVIDERS: ADMIT Family Medicine; ATTEND Family Medicine
DX: F10.129 Alcohol abuse with intoxication, unspecified (principal); R45.851 Suicidal ideations; S00.12XA Contusion of left eyelid and periocular area, initial encounter; G40.909 Epilepsy, unspecified, not intractable, without status epilepticus; G89.29 Other chronic pain; F41.9 Anxiety disorder, unspecified; F32.9 Major depressive disorder, single episode, unspecified; F17.200 Nicotine dependence, unspecified, uncomplicated; Z79.899 Other long term (current) drug therapy; Z79.51 Long term (current) use of inhaled steroids; J30.1 Allergic rhinitis due to pollen; Z88.8 Allergy status to other drugs, medicaments and biological substances; Y90.8 Blood alcohol level of 240 mg/100 ml or more; Z83.6 Family history of other diseases of the respiratory system; Z82.5 Family history of asthma and other chronic lower respiratory diseases
CPT/HCPCS: 96366 ×2; 82075; 96365; 96372; 99285; 36415; 80053; 80048; 83735 ×2; 84100; 85025 ×2; 81003; 80306; G0378 ×2; G0480; J3411; 80320

== ENCOUNTER 2019-12-21 22:28 | Emergency (ER) | payer OTHER ==
--- NOTE | 2019-12-21 23:41 | CT ---
EXAMINATION TYPE: CT brain cspine wo con DATE OF EXAM: 12/21/2019 COMPARISON: 12/06/2019 HISTORY: Patient presents with ETOH and AMS after fall. Neck pain. Headache. CT DLP: 1317.3 mGycm Automated exposure control for dose reduction was used. Multiple axial sections were obtained of the brain without contrast. Multiple axial sections were obt ained from the skull base to T1 vertebra without contrast. Ventricles have normal size. There is no mass effect nor midline shift. There is no sign of intracran ial hemorrhage. There is opacification right maxillary sinus with expansion into the nasopharynx cons istent with a mucocele. There is slight wall thickening of the right maxillary sinus on the lateral a nd anterior aspect. Cervical vertebra have mild straightening. Disc spaces are normal. Posterior element are intact. Face t joints are intact. There is no evidence of a fracture. Skull base is intact. IMPRESSION: Negative CT scan of the brain. Mucocele of the right maxillary sinus unchanged. Negative CT scan cervical spine. No fracture.
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
[2019-12-22 07:41] VITALS: BP 132/71; PULSE 88; RESP 16; TEMP 98
== END 2019-12-22 13:04 | disposition other institution (70) ==
LOC: EC 22:28
DX: F10.129 Alcohol abuse with intoxication, unspecified (principal); G40.909 Epilepsy, unspecified, not intractable, without status epilepticus; G89.29 Other chronic pain; F32.9 Major depressive disorder, single episode, unspecified; F41.9 Anxiety disorder, unspecified; F17.200 Nicotine dependence, unspecified, uncomplicated; Z88.6 Allergy status to analgesic agent; Z91.048 Other nonmedicinal substance allergy status; Z79.899 Other long term (current) drug therapy; Z81.1 Family history of alcohol abuse and dependence
CPT/HCPCS: 70450; 72125; 82075; 99285

== ENCOUNTER 2020-01-04 20:12 | Inpatient (IN) | payer MEDICAID, OTHER ==
[2020-01-04] MEDS ORDERED: SODIUM CHLORIDE 0.9% 500 ML 500 ML IV ONE (20:50)
[2020-01-04] MEDS ORDERED: SODIUM CHLORIDE 0.9% 1,000 ML IV ONE ×2 (20:50)
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
[2020-01-04 20:55] LABS: Amphetamine Screen,Urine Detected (NotDetected); Barbiturate Screen,Urine Not Detected (NotDetected); Benzodiazepines Screen,Urine Not Detected (NotDetected); Cocaine Screen,Urine Not Detected (NotDetected); Methadone Screen, Urine Not Detected (NotDetected); Opiate Screen,Urine Not Detected (NotDetected); Oxycodone Screen, Urine Not Detected (NotDetected); Phencyclidine Screen,Urine Not Detected (NotDetected); Tricyclic Antidepressant,Urine Not Detected (NotDetected); Urn Cannabinoid Scrn Not Detected (NotDetected)
[2020-01-04 21:39] LABS: Appearance,Urine Clear (Clear); Bilirubin,Urine Negative (Negative); Blood,Urine Negative (Negative); Color,Urine Yellow; Glucose,Urine (UA) Negative (Negative); Ketones,Urine Negative (Negative); Leukocyte Esterase,Urine Negative (Negative); Nitrite,Urine Negative (Negative); PH, Urine 6.5 (5.0-8.0); Protein,Urine Negative (Negative); Specific Gravity,Urine 1.021 (1.001-1.035); Urobilinogen,Urine <2.0 mg/dL (<2.0)
[2020-01-04 21:41] LABS: Basophils % (A) 0 %; Eosinophils # (A) 0.1 k/uL (0-0.7); Eosinophils % (A) 1 %; HCT 44.1 % (39.0-53.0); HGB 14.2 gm/dL (13.0-17.5); Lymphocytes # (A) 1.1 k/uL (1.0-4.8); Lymphocytes % (A) 18 %; MCH 32.2 pg (25.0-35.0); MCHC 32.3 g/dL (31.0-37.0); MCV 99.9 fL (80.0-100.0); Macrocytosis Slight; Mean Platelet Volume 7.8; Monocytes # (A) 0.5 k/uL (0-1.0); Monocytes % (A) 8 %; Neutrophils # (A) 4.3 k/uL (1.3-7.7); Neutrophils % (A) 71 %; Platelet Count 251 k/uL (150-450); RBC 4.41 m/uL (4.30-5.90); RDW 14.4 % (11.5-15.5)
[2020-01-04 21:50] LABS: ALT 41 U/L (4-49); AST 51 U/L (17-59); Acetaminophen <10.0 ug/mL; African American GFR (CKD) >90 (>60 ml/min/1.73 sqM); Albumin 4.5 g/dL (3.5-5.0); Alcohol <10 mg/dL; Alkaline Phosphatase 95 U/L (38-126); Anion Gap 4 mmol/L; Blood Urea Nitrogen 13 mg/dL (9-20); Calcium 9.8 mg/dL (8.4-10.2); Carbon Dioxide 29 mmol/L (22-30); Chloride 103 mmol/L (98-107); Glucose 89 mg/dL (74-99); Lithium <0.2 mmol/L; Magnesium 2.2 mg/dL (1.6-2.3); Non-African American GFR(CKD) >90 (>60 ml/min/1.73 sqM); Phenytoin (Dilantin) <3.0 ug/mL; Phosphorus 4.6 mg/dL (2.5-4.5); Potassium 4.2 mmol/L (3.5-5.1); Salicylate <1.0 mg/dL; Sodium 136 mmol/L (137-145); Total Bilirubin 0.3 mg/dL (0.2-1.3); Total Protein 7.3 g/dL (6.3-8.2)
[2020-01-04 21:54] LABS: Valproic Acid (Depakene) <10.0 ug/mL
[2020-01-04] MEDS ORDERED: NICOTINE 14MG/24HR PATCH TRANSDERM STA (22:57)
[2020-01-05] MEDS ORDERED: ALBUTEROL NEBULIZED 2.5 MG/3 ML INHALATION PRN (01:10)
[2020-01-05] MEDS ORDERED: MAG HYDROX/AL HYDROX/SIMETH 30 ML CUP PO PRN (01:12)
[2020-01-05] MEDS ORDERED: MAGNESIUM HYDROXIDE 2,400 MG/10 ML CUP PO PRN (01:12)
[2020-01-05] MEDS ORDERED: LORazepam 2 MG/ML INJ IM PRN (01:15)
[2020-01-05] MEDS: NICOTINE 14MG/24HR PATCH TRANSDERM SCH (08:26)
[2020-01-05] MEDS: PANTOPRAZOLE 40 MG TABLET PO SCH (08:27)
[2020-01-05] MEDS: GABAPENTIN 400 MG CAP PO SCH ×4 (08:27→21:51)
[2020-01-05] MEDS: PHENYTOIN SODIUM EXTENDED 100 MG CAP PO SCH ×3 (08:27→21:51)
[2020-01-05] MEDS: MULTIVITAMINS, THERA 1 EACH TAB PO SCH (08:27)
[2020-01-05] MEDS: BISOPROLOL-HCTZ 10-6.25 MG 1 EACH TAB PO SCH (08:27)
[2020-01-05] MEDS: HYDROCHLOROTHIAZIDE 12.5 MG CAP PO SCH (08:28)
[2020-01-05] MEDS: THIAMINE 100 MG TAB PO SCH (08:28)
[2020-01-05] MEDS: FLUoxetine HCL 20 MG CAP PO SCH (08:28)
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
[2020-01-05] MEDS: ACETAMINOPHEN TAB 325 MG TAB PO PRN (13:42)
[2020-01-06] MEDS: ACETAMINOPHEN TAB 325 MG TAB PO PRN (08:56)
[2020-01-06] MEDS: LORazepam 1 MG TAB PO PRN (08:56)
[2020-01-06] MEDS: HYDROCHLOROTHIAZIDE 12.5 MG CAP PO SCH (08:57)
[2020-01-06] MEDS: MULTIVITAMINS, THERA 1 EACH TAB PO SCH (08:57)
[2020-01-06] MEDS: PHENYTOIN SODIUM EXTENDED 100 MG CAP PO SCH ×3 (08:57→22:29)
[2020-01-06] MEDS: PANTOPRAZOLE 40 MG TABLET PO SCH (08:57)
[2020-01-06] MEDS: FLUoxetine HCL 20 MG CAP PO SCH (08:57)
[2020-01-06] MEDS: GABAPENTIN 400 MG CAP PO SCH ×4 (08:57→22:29)
[2020-01-06] MEDS: BISOPROLOL-HCTZ 10-6.25 MG 1 EACH TAB PO SCH (08:57)
[2020-01-06] MEDS: THIAMINE 100 MG TAB PO SCH (08:57)
[2020-01-06] MEDS: NICOTINE 14MG/24HR PATCH TRANSDERM SCH (08:58)
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
[2020-01-07] MEDS: GABAPENTIN 400 MG CAP PO SCH ×5 (08:56→21:14)
[2020-01-07] MEDS: NICOTINE 14MG/24HR PATCH TRANSDERM SCH (08:56)
[2020-01-07] MEDS: FLUoxetine HCL 20 MG CAP PO SCH (08:57)
[2020-01-07] MEDS: THIAMINE 100 MG TAB PO SCH (08:57)
[2020-01-07] MEDS: PHENYTOIN SODIUM EXTENDED 100 MG CAP PO SCH ×3 (08:57→21:13)
[2020-01-07] MEDS: HYDROCHLOROTHIAZIDE 12.5 MG CAP PO SCH (08:57)
[2020-01-07] MEDS: BISOPROLOL-HCTZ 10-6.25 MG 1 EACH TAB PO SCH (08:57)
[2020-01-07] MEDS: MULTIVITAMINS, THERA 1 EACH TAB PO SCH (08:57)
[2020-01-07] MEDS: PANTOPRAZOLE 40 MG TABLET PO SCH (08:57)
[2020-01-07] MEDS: ACETAMINOPHEN TAB 325 MG TAB PO PRN ×2 (08:58→16:23)
[2020-01-07] MEDS: LORazepam 1 MG TAB PO PRN (08:58)
--- NOTE | 2020-01-07 15:40 | P.PN ---
Subjective Progress Note Date: 01/07/20 Principal diagnosis: Brief psychotic disorder, alcohol use disorder severe, rule out alcohol withdrawal delirium, alcohol withdrawal, rule out delusional disorder, rule out amphetamine use disorder, rule out amphetamine induced psychotic disorder I reviewed the medical record, interviewed the patient and discuss his treatment and treatment plan during team meeting. He denied feeling paranoid, experiencing auditory hallucinations. His only complaint was feeling "a little bit depressed", feeling anxious particularly about his future and where he would live when he is discharged and having difficulty sleeping. We discussed my conversation with her sister. He regrets that he could not live with her permanently but understands that she has responsibility for her children and family. Before the of his mother October he was living between his mother and his sister. Both were able to support all his needs including driving him to his medical appointments. He acknowledges that he was abstinent from alcohol for several months after he left [facility] in 2016. He was ambivalent about another episode house residential substance abuse treatment. He perseverated on his housing and financial problems. He believes eventually he will receive back pay from his Social Security disability application. Objective - Vital Signs Vital signs: Vital Signs Temp 97.6 F 01/07/20 07:08 Pulse 69 01/07/20 12:01 Resp 20 01/07/20 09:06 BP 126/86 01/07/20 12:01 Pulse Ox 95 01/06/20 08:51 - Exam He presented as a thin casually groomed male who was pleasant on approach. He made eye contact and attended to the interview. He had muscle wasting of his left arm and contractures of left fingers. He showed no abnormality of psychomotor activity. His gait was slow but steady. His speech was spontaneous with normal rate, rhythm and volume. His affect was stable and appropriate. He denied suicidal ideation, wishes and homicidal ideation. He denied feeling hopeless, helpless and worthless. He did not express ideas reference but described continued paranoid ideation and paranoid delusions. His thinking was concrete but his associations were coherent and logical. He denied hallucinations and did not appear to be responding to internal stimuli. - Labs CBC & Chem 7: 01/04/20 21:22 01/04/20 21:22 Assessment and Plan Assessment: He is much less distressed and paranoid than on admission. Complains Was Feeling Depressed, Anxious and Having Difficulty with Sleep Onset. Plan: Continue inpatient hospitalization. Safety precautions. Continue current medications including Dilantin 100 mg 3 times a day and Prozac 40 mg daily. The neurologist not available for consultation. Begin a trial of Seroquel 100 at bedtime. Continue fluoxetine 40 mg daily.
[2020-01-07] MEDS: QUEtiapine 100 MG TAB PO SCH (21:14)
[2020-01-08] MEDS: NICOTINE 14MG/24HR PATCH TRANSDERM SCH (09:04)
[2020-01-08] MEDS: GABAPENTIN 400 MG CAP PO SCH ×3 (09:04→17:08)
[2020-01-08] MEDS: HYDROCHLOROTHIAZIDE 12.5 MG CAP PO SCH (09:05)
[2020-01-08] MEDS: FLUoxetine HCL 20 MG CAP PO SCH (09:05)
[2020-01-08] MEDS: MULTIVITAMINS, THERA 1 EACH TAB PO SCH (09:05)
[2020-01-08] MEDS: BISOPROLOL-HCTZ 10-6.25 MG 1 EACH TAB PO SCH (09:05)
[2020-01-08] MEDS: PANTOPRAZOLE 40 MG TABLET PO SCH (09:06)
[2020-01-08] MEDS: THIAMINE 100 MG TAB PO SCH (09:06)
[2020-01-08] MEDS: PHENYTOIN SODIUM EXTENDED 100 MG CAP PO SCH ×3 (09:06→21:57)
[2020-01-08] MEDS: LORazepam 1 MG TAB PO PRN (09:12)
--- NOTE | 2020-01-08 10:44 | P.PN ---
Progress Note - Text Progress Note Date: 01/08/20 Over history: Patient was seen in [facility] today. He reports that he slept very well last night with the Seroquel. He hasn't slept like that in quite some time. He does describe some tiredness today as a potential side effect which seems to be tolerable. He does not seem to verbalize any other psychotropic medication side effects. He says his mood overall is improved. Relays that he feels a little down but overall his mood is doing better. Mental status exam: He is alert and cooperative with the interview. His mood he describes is down but overall is doing better. He denies any paranoid type thoughts or hallucinations. He does not verbalize any thoughts of harm to self or others. He does not show any agitation. Plan: Patient be maintained on current psychotropic medication regimen. Continue to monitor for medication side effects and monitor his ongoing response to treatment.
--- NOTE | 2020-01-08 12:22 | EEG ---
ELECTROENCEPHALOGRAM REPORT DATE OF PROCEDURE: 01/07/2020 ELECTROENCEPHALOGRAM (EEG) REPORT: TECHNIQUE: A routine 18 channel EEG was performed with video using the 10/20 international electrode placement system. HISTORY: Seizures. Other medical history includes hallucinations and changes in behavior. CURRENT MEDICATIONS: Vitamin B1, Dilantin, Protonix, multivitamin, Ativan, hydrochlorothiazide. STUDY DURATION: 27 minutes. FINDINGS: BACKGROUND: The background activity consists of 8 to 9 Hz rhythmic waveforms symmetrically distributed through both posterior quadrants. ACTIVATION: Hyperventilation: Induced mild physiological slowing. Photic Stimulation: Symmetric driving seen. Sleep: Drowsy. ABNORMALITIES: None. IMPRESSION: Normal EEG. No epileptiform activity was present. No seizures were recorded. MMODL / IJN: [id number] /
[2020-01-08] MEDS: QUEtiapine 100 MG TAB PO SCH (21:57)
[2020-01-09] MEDS: NICOTINE 14MG/24HR PATCH TRANSDERM SCH (08:48)
[2020-01-09] MEDS: GABAPENTIN 400 MG CAP PO SCH ×4 (08:48→21:06)
[2020-01-09] MEDS: BISOPROLOL-HCTZ 10-6.25 MG 1 EACH TAB PO SCH (08:48)
[2020-01-09] MEDS: PANTOPRAZOLE 40 MG TABLET PO SCH (08:49)
[2020-01-09] MEDS: MULTIVITAMINS, THERA 1 EACH TAB PO SCH (08:49)
[2020-01-09] MEDS: HYDROCHLOROTHIAZIDE 12.5 MG CAP PO SCH (08:49)
[2020-01-09] MEDS: THIAMINE 100 MG TAB PO SCH (08:49)
[2020-01-09] MEDS: PHENYTOIN SODIUM EXTENDED 100 MG CAP PO SCH ×3 (08:49→21:06)
[2020-01-09] MEDS: FLUoxetine HCL 20 MG CAP PO SCH (08:49)
[2020-01-09] MEDS: LORazepam 1 MG TAB PO PRN ×2 (08:53→21:03)
--- NOTE | 2020-01-09 12:28 | P.PN ---
Progress Note - Text Progress Note Date: 01/09/20 Interval history: Patient is seen again in [facility] today. He reports that overall he slept a good amount last night. He does describe still some sedation he thinks related to the Seroquel but it's improved today. He had a goal of attending the groups today. He does state he has more interest in socializing now. He describes still some ongoing depression but it's not as persistent as it was before and he has periods where he is feeling better. Mental status exam: He is alert and cooperative with the interview. His speech is fluent, not rapid or pressured. Thought processes are organized. His mood he describes as some ongoing depression but he has periods where he is feeling better. He denies any current thoughts of suicide. He reports having felt frustrated with his roommate this morning but denies any thoughts of harm to others. No evidence of active psychosis. Plan: Patient will be maintained on current psychotropic medication regimen. Continue to monitor for any medication side effects and monitor his ongoing response to treatment. Status appears to be improving.
[2020-01-09] MEDS: ACETAMINOPHEN TAB 325 MG TAB PO PRN (13:56)
[2020-01-09] MEDS: QUEtiapine 100 MG TAB PO SCH (21:06)
[2020-01-10] MEDS: NICOTINE 14MG/24HR PATCH TRANSDERM SCH (08:59)
[2020-01-10] MEDS: GABAPENTIN 400 MG CAP PO SCH ×4 (09:00→20:52)
[2020-01-10] MEDS: THIAMINE 100 MG TAB PO SCH (09:00)
[2020-01-10] MEDS: FLUoxetine HCL 20 MG CAP PO SCH (09:00)
[2020-01-10] MEDS: BISOPROLOL-HCTZ 10-6.25 MG 1 EACH TAB PO SCH (09:01)
[2020-01-10] MEDS: PHENYTOIN SODIUM EXTENDED 100 MG CAP PO SCH ×3 (09:01→20:51)
[2020-01-10] MEDS: PANTOPRAZOLE 40 MG TABLET PO SCH (09:01)
[2020-01-10] MEDS: HYDROCHLOROTHIAZIDE 12.5 MG CAP PO SCH (09:01)
[2020-01-10] MEDS: MULTIVITAMINS, THERA 1 EACH TAB PO SCH (09:01)
[2020-01-10] MEDS: LORazepam 1 MG TAB PO PRN (09:04)
--- NOTE | 2020-01-10 13:07 | P.PN ---
Subjective Progress Note Date: 01/10/20 Principal diagnosis: Brief psychotic disorder, alcohol use disorder severe, rule out alcohol withdrawal delirium, alcohol withdrawal, rule out delusional disorder, rule out amphetamine use disorder, rule out amphetamine induced psychotic disorder I reviewed the medical record, interviewed the patient and discuss his treatment and treatment plan during team meeting. He denied feeling paranoid, experiencing auditory hallucinations. He again complained of feeling depressed but denied thoughts of or suicide. He is concerned about his social circumstances because he cannot live with his sister and does not want to return to local [facility]. He is ambivalent about residential substance abuse treatment. He minimizes severity of his alcohol use problems. Objective - Vital Signs Vital signs: Vital Signs Temp 97.7 F 01/10/20 06:59 Pulse 82 01/10/20 09:00 Resp 14 01/10/20 06:59 BP 114/73 01/10/20 09:00 Pulse Ox 98 01/09/20 08:47 Intake & Output 01/09/20 01/10/20 01/10/20 18:59 06:59 18:59 Weight 64.3 kg - Exam He presented as a thin casually groomed male who was pleasant on approach. He made eye contact and attended to the interview. He had muscle wasting of his left arm and contractures of left fingers. He showed no abnormality of psychomotor activity. His gait was slow but steady. His speech was spontaneous with normal rate, rhythm and volume. His affect was stable and appropriate. He denied suicidal ideation, wishes and homicidal ideation. He denied feeling hopeless, helpless and worthless. He did not express ideas reference but described continued paranoid ideation and paranoid delusions. His thinking was concrete but his associations were coherent and logical. He denied hallucinations and did not appear to be responding to internal stimuli. - Labs CBC & Chem 7: 01/04/20 21:22 01/04/20 21:22 Assessment and Plan Assessment: He is much less distressed and paranoid than on admission. He has multiple social problems including no income, no employment and no stable housing. He minimizes his alcohol use problems. Plan: Plan for discharge on 01/11/2020. Social work to talk to him about residential substance abuse treatment otherwise he would discharge him to the local [facility]. Safety precautions. Continue current medications including Dilantin 100 mg 3 times a day and Prozac 40 mg daily. The neurologist not available for consultation. Continue Seroquel 100 mg Continue fluoxetine 40 mg daily at bedtime in addition to the current dose of Prozac. Continue Dilantin 100 mg 3 times a day for seizure disorder.
[2020-01-10] MEDS: QUEtiapine 100 MG TAB PO SCH (20:51)
[2020-01-11] MEDS: NICOTINE 14MG/24HR PATCH TRANSDERM SCH (08:48)
[2020-01-11] MEDS: GABAPENTIN 400 MG CAP PO SCH ×4 (08:48→23:05)
[2020-01-11] MEDS: MULTIVITAMINS, THERA 1 EACH TAB PO SCH (08:49)
[2020-01-11] MEDS: FLUoxetine HCL 20 MG CAP PO SCH (08:49)
[2020-01-11] MEDS: HYDROCHLOROTHIAZIDE 12.5 MG CAP PO SCH (08:49)
[2020-01-11] MEDS: BISOPROLOL-HCTZ 10-6.25 MG 1 EACH TAB PO SCH (08:49)
[2020-01-11] MEDS: PHENYTOIN SODIUM EXTENDED 100 MG CAP PO SCH ×3 (08:50→21:27)
[2020-01-11] MEDS: PANTOPRAZOLE 40 MG TABLET PO SCH (08:50)
[2020-01-11] MEDS: THIAMINE 100 MG TAB PO SCH (08:50)
[2020-01-11] MEDS: LORazepam 1 MG TAB PO PRN (12:14)
--- NOTE | 2020-01-11 12:29 | P.PN ---
Progress Note - Text Progress Note Date: 01/11/20 During the discharge process he told the [facility] liaison that he "doesn't know what he would do" if he were to leave the hospital today. He complained that he "could not guarantee I would be safe." We talked about his discharge and discharge plans. I told him that he has few options available to him because he cannot live with his sister, his mother is and he apparently cannot return to the local [facility]. He is also refused our recommendation for residential substance abuse treatment. He eventually agreed to call [facility] for residential substance abuse treatment. I agreed to postpone the discharge until we have out, of the conversation with [facility].
[2020-01-11] MEDS: QUEtiapine 100 MG TAB PO SCH (23:05)
[2020-01-12 00:28] VITALS: RESP 14; TEMP 98.6
[2020-01-12] MEDS: NICOTINE 14MG/24HR PATCH TRANSDERM SCH (08:45)
[2020-01-12] MEDS: GABAPENTIN 400 MG CAP PO SCH ×2 (08:47→13:41)
[2020-01-12] MEDS: BISOPROLOL-HCTZ 10-6.25 MG 1 EACH TAB PO SCH (08:47)
[2020-01-12] MEDS: THIAMINE 100 MG TAB PO SCH (08:48)
[2020-01-12] MEDS: PHENYTOIN SODIUM EXTENDED 100 MG CAP PO SCH (08:48)
[2020-01-12] MEDS: HYDROCHLOROTHIAZIDE 12.5 MG CAP PO SCH (08:48)
[2020-01-12] MEDS: MULTIVITAMINS, THERA 1 EACH TAB PO SCH (08:48)
[2020-01-12] MEDS: FLUoxetine HCL 20 MG CAP PO SCH (08:48)
[2020-01-12] MEDS: PANTOPRAZOLE 40 MG TABLET PO SCH (08:48)
[2020-01-12] MEDS: LORazepam 1 MG TAB PO PRN (08:49)
[2020-01-12 08:52] VITALS: BP 113/56; PULSE 84
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
--- NOTE | 2020-01-13 16:17 | CDI ---
Documentation Clarification Form Date: 01/13/20 From: Irma Olivo Phone: If you have a question about this query, please contact Velma Devine, Loss Prevention Supervisor at [phone] between 8am and 5pm. Admit Date: 01/05/20 Discharge Date:01/12/20 Patient Name: Phan Aguilera Visit Number: [id number] ATTENTION: The Clinical Documentation Specialists (CDI) and [facility] Coding Staff appreciate your assistance in clarifying documentation. Please respond to the clarification below the line at the bottom and electronically sign. The CDI & [facility] Coding staff will review the response and follow-up if needed. Please note: Queries are made part of the Legal Health Record. If you have any questions, please contact the author of this message via ITS. Dear Dr. Garay Alcohol abuse is documented in the consult note and discharge summary. Alcohol withdrawal is documented in the discharge summary. History/Risk Factors: Alcohol use Clinical Indicators: Anxiety Labs: CIWA score 0, Na 136, phosphorus 4.6 Treatment: Thiamine In your professional opinion, can you please clarify if the above clinical indicators and treatment signify any of the following? Alcohol dependence Alcohol abuse Alcohol abuse with preventative treatment for tremors Other, please specify Unable to determine Alcohol dependence MTDD
== END 2020-01-12 14:11 | disposition home or self-care (01) | DRG 885 ==
LOC: EC 20:12 → 3MHU 01-05 00:47
PROVIDERS: ADMIT Psychiatry & Neurology Psychiatry; ATTEND Psychiatry & Neurology Psychiatry
DX: F23 Brief psychotic disorder (principal); G40.802 Other epilepsy, not intractable, without status epilepticus; R45.851 Suicidal ideations; F10.20 Alcohol dependence, uncomplicated; F32.9 Major depressive disorder, single episode, unspecified; F41.9 Anxiety disorder, unspecified; T42.0X6A Underdosing of hydantoin derivatives, initial encounter; T43.226A Underdosing of selective serotonin reuptake inhibitors, initial encounter; F12.90 Cannabis use, unspecified, uncomplicated; F17.200 Nicotine dependence, unspecified, uncomplicated; I10 Essential (primary) hypertension; J45.909 Unspecified asthma, uncomplicated; G89.29 Other chronic pain; M79.602 Pain in left arm; M62.532 Muscle wasting and atrophy, not elsewhere classified, left forearm; Z56.0 Unemployment, unspecified; Z59.0 Homelessness; Z79.899 Other long term (current) drug therapy; Z88.6 Allergy status to analgesic agent; Z91.048 Other nonmedicinal substance allergy status; Z82.5 Family history of asthma and other chronic lower respiratory diseases; Y90.0 Blood alcohol level of less than 20 mg/100 ml
CPT/HCPCS: 36415; 80053; 80061; 80164; 80178; 80185; 80306; 80320; 80329; 81003; 82075; 82140; 83036; 83520; 83735; 84100; 84443; 85025; 95816; 96360; 96361; 99285

== ENCOUNTER 2020-02-18 20:49 | Emergency (ER) | payer OTHER ==
[2020-02-18 20:55] VITALS: RESP 18
[2020-02-18] MEDS ORDERED: PENICILLIN VK 500MG STARTER 4 TAB BTL PO STA (21:26)
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
[2020-02-18 23:45] VITALS: BP 125/60; PULSE 80; TEMP 99
== END 2020-02-19 00:05 | disposition home or self-care (01) ==
LOC: EC 20:49
DX: F10.129 Alcohol abuse with intoxication, unspecified (principal); K04.7 Periapical abscess without sinus; I10 Essential (primary) hypertension; F17.200 Nicotine dependence, unspecified, uncomplicated; Z59.0 Homelessness; Z79.899 Other long term (current) drug therapy; Z91.048 Other nonmedicinal substance allergy status; Z88.6 Allergy status to analgesic agent
CPT/HCPCS: 99284

== ENCOUNTER 2020-05-02 17:56 | Inpatient (IN) | payer OTHER ==
[2020-05-02] MEDS ORDERED: SODIUM CHLORIDE 0.9% 1,000 ML IV STA (18:13)
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
[2020-05-02 18:44] LABS: ALT 58 U/L (4-49); AST 93 U/L (17-59); African American GFR (CKD) >90 (>60 ml/min/1.73 sqM); Albumin 4.5 g/dL (3.5-5.0); Alcohol <10 mg/dL; Alkaline Phosphatase 117 U/L (38-126); Anion Gap 14 mmol/L; Blood Urea Nitrogen 6 mg/dL (9-20); Calcium 9.7 mg/dL (8.4-10.2); Carbon Dioxide 21 mmol/L (22-30); Chloride 100 mmol/L (98-107); Glucose 103 mg/dL (74-99); Non-African American GFR(CKD) >90 (>60 ml/min/1.73 sqM); Potassium 4.1 mmol/L (3.5-5.1); Sodium 135 mmol/L (137-145); Total Bilirubin 1.2 mg/dL (0.2-1.3); Total Protein 7.6 g/dL (6.3-8.2)
[2020-05-02 18:51] LABS: Basophils % (A) 1 %; Eosinophils % (A) 0 %; HCT 46.5 % (39.0-53.0); HGB 15.4 gm/dL (13.0-17.5); Lymphocytes # (A) 0.2 k/uL (1.0-4.8); Lymphocytes % (A) 4 %; MCH 34.4 pg (25.0-35.0); MCHC 33.2 g/dL (31.0-37.0); MCV 103.6 fL (80.0-100.0); Macrocytosis Moderate; Monocytes # (A) 0.3 k/uL (0-1.0); Monocytes % (A) 5 %; Neutrophils # (A) 5.8 k/uL (1.3-7.7); Neutrophils % (A) 89 %; Platelet Count 201 k/uL (150-450); RBC 4.49 m/uL (4.30-5.90); RDW 15.7 % (11.5-15.5); WBC 6.5 k/uL (3.8-10.6)
[2020-05-02] MEDS ORDERED: PHENYTOIN SODIUM EXTENDED 100 MG CAP PO STA (19:07)
[2020-05-02] MEDS ORDERED: KETOROLAC 30 MG/ML 1 ML VIAL IVP STA (19:17)
[2020-05-02] MEDS ORDERED: THIAMINE 100 MG/ML 2 ML VIAL IM STA (19:52)
[2020-05-02] MEDS ORDERED: LORazepam 2 MG/ML INJ IV PRN ×3 (19:52→23:05)
[2020-05-02] MEDS ORDERED: NALOXONE 0.4 MG/ML 1 ML VIAL IV PRN (19:53)
[2020-05-02] MEDS ORDERED: ONDANSETRON 4 MG/2 ML VIAL IVP PRN (19:53)
[2020-05-02] MEDS ORDERED: ACETAMINOPHEN TAB 325 MG TAB PO PRN (19:53)
[2020-05-02] MEDS: SODIUM CHLORIDE 0.9% 1,000 ML IV SCH (20:39)
[2020-05-02] MEDS: PHENYTOIN SODIUM EXTENDED 100 MG CAP PO SCH (23:13)
--- NOTE | 2020-05-02 23:45 | CT ---
EXAMINATION TYPE: CT brain wo con DATE OF EXAM: 05/02/2020 COMPARISON: 12/21/2019 HISTORY: seizure CT DLP: 1129.40 mGycm Automated exposure control for dose reduction was used. Ventricles and sulci appear normal. There is no mass effect nor midline shift. There is no sign of in tracranial hemorrhage. The calvarium is intact. There is no evidence of cerebral edema. Skull base is intact. There is mucosal thickening in the maxillary sinuses. IMPRESSION: Negative CT scan of the brain. There is a changing pattern of maxillary sinusitis compared to old exam.
[2020-05-03] MEDS: LORazepam 2 MG/ML INJ IV PRN ×2 (03:40→21:38)
[2020-05-03] MEDS: THIAMINE 100 MG TAB PO SCH ×2 (08:29→17:36)
[2020-05-03] MEDS: SODIUM CHLORIDE 0.9% 1,000 ML IV SCH ×2 (08:29→18:46)
[2020-05-03] MEDS: PHENYTOIN SODIUM EXTENDED 100 MG CAP PO SCH ×3 (10:04→22:44)
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
[2020-05-03] MEDS: NICOTINE 21MG/24HR PATCH TRANSDERM SCH (17:36)
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
[2020-05-04] MEDS: SODIUM CHLORIDE 0.9% 1,000 ML IV SCH ×2 (02:00→17:09)
[2020-05-04 05:10] VITALS: RESP 18
[2020-05-04] MEDS: PHENYTOIN SODIUM EXTENDED 100 MG CAP PO SCH ×2 (08:15→16:58)
[2020-05-04] MEDS: NICOTINE 21MG/24HR PATCH TRANSDERM SCH (08:15)
[2020-05-04] MEDS: THIAMINE 100 MG TAB PO SCH ×2 (08:16→17:09)
[2020-05-04 08:47] LABS: Basophils % (A) 1 %; Eosinophils # (A) 0.1 k/uL (0-0.7); Eosinophils % (A) 3 %; HCT 44.4 % (39.0-53.0); HGB 14.5 gm/dL (13.0-17.5); Lymphocytes # (A) 1.3 k/uL (1.0-4.8); Lymphocytes % (A) 28 %; MCH 34.6 pg (25.0-35.0); MCHC 32.7 g/dL (31.0-37.0); MCV 105.7 fL (80.0-100.0); Macrocytosis Moderate; Mean Platelet Volume 8.6; Monocytes # (A) 0.4 k/uL (0-1.0); Monocytes % (A) 8 %; Neutrophils # (A) 2.5 k/uL (1.3-7.7); Neutrophils % (A) 57 %; Platelet Count 181 k/uL (150-450); RDW 15.2 % (11.5-15.5); WBC 4.4 k/uL (3.8-10.6)
[2020-05-04 08:59] LABS: African American GFR (CKD) >90 (>60 ml/min/1.73 sqM); Anion Gap 8 mmol/L; Blood Urea Nitrogen 6 mg/dL (9-20); Calcium 8.7 mg/dL (8.4-10.2); Carbon Dioxide 23 mmol/L (22-30); Chloride 105 mmol/L (98-107); Glucose 79 mg/dL (74-99); Non-African American GFR(CKD) >90 (>60 ml/min/1.73 sqM); Potassium 3.6 mmol/L (3.5-5.1); Sodium 136 mmol/L (137-145)
[2020-05-04] MEDS ORDERED: PANTOPRAZOLE 40 MG/10 ML VIAL IVP SCH (09:00)
[2020-05-04] MEDS ORDERED: FLUoxetine HCL 20 MG CAP PO SCH (09:15)
[2020-05-04 09:27] LABS: Phenytoin (Dilantin) <3.0 ug/mL
[2020-05-04] MEDS ORDERED: FOLIC ACID 1 MG TAB PO SCH (09:30)
[2020-05-04] MEDS ORDERED: PHENYTOIN SODIUM IVPB ONE (10:42)
[2020-05-04] MEDS ORDERED: SODIUM CHLORIDE 0.9% IVPB ONE (10:42)
--- NOTE | 2020-05-04 11:45 | P.DS ---
Providers Date of admission: 05/02/20 19:55 Expected date of discharge: 05/04/20 Attending physician: Kalen Carrillo Consults: 05/03/20 12:53 Consult Physician Routine Consulting Provider: Janel Ling Consult Reason/Comments: seizures Do you want consulting provider notified?: Yes Primary care physician: [facility] Course: Final Diagnoses: Recurrent seizures in a patient with history of seizure disorder, noncompliant and had not taken his Dilantin in over 2 weeks in addition to alcohol intoxication Alcohol abuse, reports drinking 7-10 beers a day Marijuana use Ongoing nicotine dependence Homeless Noncompliance with medications History of psychotic disorder Anxiety, depression Hypertension Coronavirus not detected Hospital course:This is a 29-year-old gentleman with history of alcohol abuse, ongoing nicotine dependence, marijuana use, seizure disorder and noncompliance with Dilantin and multiple other medical issues, presented to the ER with compl aints of having 2 seizures lasting greater than 5 minutes. Denies trauma, denies incontinence. Denies lightheadedness dizziness or focal deficits. Denies headache. Denies chest pain, palpitations or shortness of breath. Reports he has been off of his Dilantin for greater than 2 weeks. Reports he is homeless, continues to drink 7-10 beers per day. EKG normal sinus rhythm. Brain CT negative. Toxicology reporting Serum alcohol less than 10, phenytoin less than 3. CIWA score 0-1.Evaluated by neurology with recommendations noted and appreciated. Repeat Dilantin level less than 3, patient received additional IV piggyback 10 mg/kg. Repeat Dilantin level I hour after completion of Dilantin piggyback. Discharge will be later this afternoon pending reevaluation and clearance by both neurology and Dr. Carrillo. Patient will be discharged home today in a stable condition with guarded prognosis pending neurology and Dr. Carrillo's reevaluation/clearance. Social work assisting with discharge rehab options. Patient will require outpatient repeat Dilantin level in one week. The impression and plan of care has been dictated as directed. : I performed a history and examination of this patient, discussed the same with the dictator. I agree with the dictator's note ,documented as a scribe. Any additional findings or plans will be noted. Patient Condition at Discharge: Stable Plan - Discharge Summary Discharge Rx Participant: No New Discharge Prescriptions: New Nicotine 21Mg/24Hr Patch [Habitrol] 1 patch TRANSDERM DAILY #30 patch Thiamine [Vitamin B-1] 100 mg PO DAILY #30 tab Folic Acid 1 mg PO DAILY #30 tab Multivitamins, Thera [Multivitamin (formulary)] 1 each PO DAILY #30 tab Famotidine [Pepcid] 20 mg PO BID #60 tablet Phenytoin Sodium Extended [Dilantin] 200 mg PO BID #120 cap Continue Gabapentin 800 mg PO TID@0800,1200,1800 #90 tab Gabapentin [Neurontin] 400 mg PO HS #30 cap FLUoxetine HCL [PROzac] 40 mg PO DAILY #30 cap Bisoprolol-Hctz 10-6.25 mg [Ziac 10-6.25 MG] 1 tab PO DAILY #30 tab Discontinued Phenytoin Sodium Extended [Dilantin] 100 mg PO TID #90 cap Hydrochlorothiazide 12.5 mg PO DAILY #30 cap Discharge Medication List Bisoprolol-Hctz 10-6.25 mg [Ziac 10-6.25 MG] 1 tab PO DAILY #30 tab 01/11/20 [Rx] FLUoxetine HCL [PROzac] 40 mg PO DAILY #30 cap 01/11/20 [Rx] Gabapentin 800 mg PO TID@0800,1200,1800 #90 tab 01/11/20 [Rx] Gabapentin [Neurontin] 400 mg PO HS #30 cap 01/11/20 [Rx] Famotidine [Pepcid] 20 mg PO BID #60 tablet 05/04/20 [Rx] Folic Acid 1 mg PO DAILY #30 tab 05/04/20 [Rx] Multivitamins, Thera [Multivitamin (formulary)] 1 each PO DAILY #30 tab 05/04/20 [Rx] Nicotine 21Mg/24Hr Patch [Habitrol] 1 patch TRANSDERM DAILY #30 patch 05/04/20 [Rx] Phenytoin Sodium Extended [Dilantin] 200 mg PO BID #120 cap 05/04/20 [Rx] Thiamine [Vitamin B-1] 100 mg PO DAILY #30 tab 05/04/20 [Rx] Follow up Appointment(s)/Referral(s): Uday Pennington Jr, DO [Primary Care Provider] - 3 Days [facility], Psychiatry [Other] - 1 Week Patient Instructions/Handouts: Famotidine (By mouth), Phenytoin (By mouth), Thiamine (By mouth), Folic Acid (By mouth), Multivitamins, Adult Formula (By mouth), Nicotine (Absorbed through the skin) Activity/Diet/Wound Care/Special Instructions: Discharge will be changed to a later discharge this afternoon, pending repeat Dilantin level 1hr post IVPB, re-evaluation/clearance by both neurology and Dr. Carrillo. Patient will need a repeat outpatient Dilantin level in one week. [facility] Vocational rehab
[2020-05-04] MEDS ORDERED: MULTIVITAMINS, THERA 1 EACH TAB PO SCH (13:00)
[2020-05-04 15:31] VITALS: BP 126/79; PULSE 80; TEMP 97.7; BMI 19.0
--- NOTE | 2020-05-04 16:37 | EEG ---
ELECTROENCEPHALOGRAM REPORT HISTORY: This is an inpatient EEG performed on a 29-year-old gentleman, right-handed, who has a known history for seizures that have been fairly well controlled with monotherapy Dilantin. The patient reports he believes his seizures started after an episode of alcohol withdrawal several years ago. This most recent seizure leading to admission was due to him not being on his Dilantin for almost 2 months in the setting of still drinking regularly. No other prior EEG is available for comparison. TECHNICAL REPORT: This is an inpatient EEG performed on the [employer] EEG monitor with electrodes placed according to the international 10-20 system and a single EKG channel. Simultaneous video EEG monitoring was performed. This EEG was reviewed in both longitudinal bipolar, common average referential and transverse montages. Photic stimulation was performed. Hyperventilation was not performed. The recording begins with the patient in quiet wakefulness. A well-sustained a low- to moderate-amplitude 8 to maximum 10 hertz posterior-dominant rhythm is present that attenuates with eye opening. Low-amplitude beta activity is prominent over the anterior and central head regions. Intermittent muscle movement artifact contaminates the tracing. Throughout this recording, the heart rate is noted to be irregular. Photic stimulation was performed at various flash frequencies and failed to elicit consistent driving response. The patient briefly transitions into stage I sleep (drowsiness). This is associated with further attenuation of the background rhythm and a slowing of frequencies down to 7 Hz. Increase in beta is noted anteriorly and centrally now. Deeper stages of sleep were not achieved. IMPRESSION: This is a normal wake drowsy EEG study. No epileptiform discharges, electrographic seizures, focal or hemispheric slowing was noted. The heart rate, however, was noted to be irregular. CLINICAL CORRELATION: A normal wake drowsy EEG study does not preclude an underlying seizure tendency; thus further clinical correlation is needed. If clinically indicated, a more prolonged overnight study and/or serial EEGs is recommended. MMODL / IJN: [id number] /
[2020-05-04] MEDS ORDERED: GABAPENTIN 400 MG CAP PO SCH (21:00)
== END 2020-05-04 18:52 | disposition home or self-care (01) | DRG 101 ==
LOC: EC 17:56 → 5NMEDONC 19:55
PROVIDERS: ADMIT Family Medicine; ATTEND Family Medicine
DX: G40.909 Epilepsy, unspecified, not intractable, without status epilepticus (principal); F10.239 Alcohol dependence with withdrawal, unspecified; E87.1 Hypo-osmolality and hyponatremia; G90.512 Complex regional pain syndrome I of left upper limb; F10.229 Alcohol dependence with intoxication, unspecified; Z11.59 Encounter for screening for other viral diseases; Y90.0 Blood alcohol level of less than 20 mg/100 ml; I10 Essential (primary) hypertension; F32.9 Major depressive disorder, single episode, unspecified; F41.9 Anxiety disorder, unspecified; F17.200 Nicotine dependence, unspecified, uncomplicated; Z71.6 Tobacco abuse counseling; T42.0X6A Underdosing of hydantoin derivatives, initial encounter; M21.932 Unspecified acquired deformity of left forearm; M24.542 Contracture, left hand; Z91.138 Patient's unintentional underdosing of medication regimen for other reason; R74.0 Nonspecific elevation of levels of transaminase and lactic acid dehydrogenase [LDH]; Z79.899 Other long term (current) drug therapy; Z59.0 Homelessness; Z98.890 Other specified postprocedural states; Y63.6 Underdosing and nonadministration of necessary drug, medicament or biological substance; Z88.6 Allergy status to analgesic agent; Z91.048 Other nonmedicinal substance allergy status; Z82.5 Family history of asthma and other chronic lower respiratory diseases; Z82.0 Family history of epilepsy and other diseases of the nervous system; Z81.1 Family history of alcohol abuse and dependence
CPT/HCPCS: 36415; 70450; 80048; 80053; 80185; 80320; 85025; 93005; 95816; 96361; 96372; 96374; 96375; 96376; 99285

== ENCOUNTER 2020-06-07 18:22 | Emergency (ER) | payer OTHER ==
[2020-06-07 18:28] VITALS: RESP 16
[2020-06-07] MEDS ORDERED: SODIUM CHLORIDE 0.9% 500 ML 500 ML IV STA (18:32)
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
[2020-06-07 18:57] LABS: Basophils % (A) 1 %; Eosinophils % (A) 0 %; HCT 44.7 % (39.0-53.0); HGB 14.6 gm/dL (13.0-17.5); Lymphocytes # (A) 0.9 k/uL (1.0-4.8); Lymphocytes % (A) 16 %; MCH 34.9 pg (25.0-35.0); MCHC 32.6 g/dL (31.0-37.0); MCV 106.8 fL (80.0-100.0); Macrocytosis Moderate; Mean Platelet Volume 8.4; Monocytes # (A) 0.4 k/uL (0-1.0); Monocytes % (A) 8 %; Neutrophils % (A) 73 %; Platelet Count 156 k/uL (150-450); RBC 4.19 m/uL (4.30-5.90); RDW 14.7 % (11.5-15.5); WBC 5.4 k/uL (3.8-10.6)
[2020-06-07 19:02] LABS: African American GFR (CKD) >90 (>60 ml/min/1.73 sqM); Anion Gap 18 mmol/L; Blood Urea Nitrogen 5 mg/dL (9-20); Calcium 9.4 mg/dL (8.4-10.2); Carbon Dioxide 15 mmol/L (22-30); Chloride 101 mmol/L (98-107); Glucose 103 mg/dL (74-99); Non-African American GFR(CKD) >90 (>60 ml/min/1.73 sqM); Sodium 134 mmol/L (137-145)
[2020-06-07 19:55] LABS: Potassium 3.8 mmol/L (3.5-5.1)
[2020-06-07] MEDS ORDERED: PHENYTOIN SODIUM INJ 750 MG in SODIUM CHLORIDE 0.9% 100 ML IVPB STA (20:37)
[2020-06-07 21:47] VITALS: BP 138/113; PULSE 75; TEMP 98.2
== END 2020-06-07 21:56 | disposition home or self-care (01) ==
LOC: EC 18:22
DX: G40.909 Epilepsy, unspecified, not intractable, without status epilepticus (principal); Z91.14 Patient's other noncompliance with medication regimen; Z59.0 Homelessness; I10 Essential (primary) hypertension; Z79.899 Other long term (current) drug therapy; Z88.6 Allergy status to analgesic agent; Z91.048 Other nonmedicinal substance allergy status
CPT/HCPCS: 36415; 93005; 80048; 80185; 85025; 99284; 96365; J1165

== ENCOUNTER → 2020-11-16 | Outpatient (CLI) | payer OTHER | END | disposition home or self-care (01) | LOC: LABWHC1 12:50 | PROVIDERS: ATTEND Emergency Medicine | DX: Z20.828 Contact with and (suspected) exposure to other viral communicable diseases (principal) | CPT/HCPCS: U0003; C9803 ==

== ENCOUNTER 2021-08-22 09:54 | Emergency (ER) | payer OTHER ==
[2021-08-22] MEDS ORDERED: SODIUM CHLORIDE 0.9% 1,000 ML IV STA (10:00)
[2021-08-22 10:12] VITALS: TEMP 97.1
[2021-08-22 10:49] LABS: Basophils % (A) 0 %; Eosinophils % (A) 0 %; HGB 15.4 gm/dL (13.0-17.5); Lymphocytes # (A) 0.7 k/uL (1.0-4.8); Lymphocytes % (A) 13 %; MCH 35.6 pg (25.0-35.0); MCHC 34.3 g/dL (31.0-37.0); MCV 103.9 fL (80.0-100.0); Macrocytosis Slight; Monocytes # (A) 0.4 k/uL (0-1.0); Monocytes % (A) 8 %; Neutrophils % (A) 77 %; Platelet Count 234 k/uL (150-450); RBC 4.33 m/uL (4.30-5.90); RDW 14.7 % (11.5-15.5); WBC 5.2 k/uL (3.8-10.6)
--- NOTE | 2021-08-22 10:52 | ED ---
General Adult HPI - General Chief complaint: Seizure Stated complaint: Seizure Time Seen by Provider: 08/22/21 09:59 Source: patient, EMS, RN notes reviewed, old records reviewed Mode of arrival: EMS Limitations: no limitations - History of Present Illness Initial comments: 31-year-old male with known seizure disorder and history of alcohol abuse presen ting status post fall with suspected seizure and head trauma. The patient admits that he has not been taking his Dilantin for several days may be up to one week. He is uncertain exactly what happened today. He is alert and oriented but slow to respond at the time my evaluation. He was transported by EMS after having a fall. There was head trauma. He was placed in a c-collar by EMS for transportation. Patient denying any chest pain or abdominal pain. Denied palpitations. He does admit to alcohol consumption. - Related Data Home Medications Medication Instructions Recorded Confirmed Gabapentin 800 mg PO TID 06/07/20 06/07/20 Multivitamins, Thera [Multivitamin 1 tab PO DAILY 06/07/20 06/07/20 (formulary)] Phenytoin Sodium Extended 100 mg PO TID 06/07/20 06/07/20 [Dilantin] Previous Rx's Medication Instructions Recorded Nicotine 21Mg/24Hr Patch [Habitrol] 1 patch TRANSDERM DAILY #30 patch 05/04/20 Phenytoin Sodium Extended 100 mg PO TID 7 Days #21 capsule 06/07/20 [Dilantin] Allergies Allergy/AdvReac Type Severity Reaction Status Date / Time pollen extracts Allergy Unknown Verified 06/07/20 18:29 ibuprofen AdvReac Testicular Verified 06/07/20 18:29 Pain naproxen AdvReac stomach Verified 06/07/20 18:29 pain and cramping NSAIDS (Non-Steroidal AdvReac Stomach Verified 06/07/20 18:29 Anti-Inflamma pain and cramping Review of Systems ROS Statement: Those systems with pertinent positive or pertinent negative responses have been documented in the HPI. ROS Other: All systems not noted in ROS Statement are negative. Past Medical History Past Medical History: Hypertension, Seizure Disorder Additional Past Medical History / Comment(s): ETOH abuse, pt believes his seizures are r/t alcoholism-last seizure 05/02/20, chronic pain L arm History of Any Multi-Drug Resistant Organisms: None Reported Past Surgical History: Orthopedic Surgery Additional Past Surgical History / Comment(s): left arm surgery x8 d/t injury Past Anesthesia/Blood Transfusion Reactions: No Reported Reaction Past Psychological History: Anxiety, Depression Smoking Status: Current every day smoker Past Alcohol Use History: Daily, Heavy Past Drug Use History: Marijuana - Past Family History Mother Family Medical History: COPD Additional Family Medical History / Comment(s): Mother is . Father Family Medical History: Seizure Disorder Additional Family Medical History / Comment(s): Father is . etoh, seizures. General Exam Limitations: no limitations General appearance: alert, in no apparent distress, appears intoxicated Head exam: Present: normocephalic, other (Small parietal hematoma) Eye exam: Present: normal appearance, PERRL ENT exam: Present: mucous membranes dry Neck exam: Present: normal inspection. Absent: tenderness, meningismus Respiratory exam: Present: normal lung sounds bilaterally. Absent: respiratory distress, wheezes Cardiovascular Exam: Present: normal rhythm, tachycardia GI/Abdominal exam: Present: soft. Absent: distended, tenderness, guarding Neurological exam: Present: alert, oriented X3 (Slow to respond). Absent: motor sensory deficit Course Vital Signs 08/22/21 08/22/21 08/22/21 10:09 11:25 11:45 Temperature 97.1 F L Pulse Rate 119 H 49 L 65 Respiratory 18 17 18 Rate Blood Pressure 152/103 164/127 160/105 O2 Sat by Pulse 96 97 Oximetry 08/22/21 11:57 Temperature Pulse Rate 84 Respiratory 18 Rate Blood Pressure 173/111 O2 Sat by Pulse 95 Oximetry - Reevaluation(s) Reevaluation #1: 08/22/21 11:49 CT cervical spine is negative for fracture or subluxation. Collar is removed to improve venous return. Had a bed is maintained greater than 30. EKG Findings - EKG Comments: EKG Findings:: EKG: Normal sinus rhythm, prolonged QT, T-wave inversion in V3, P T waves in V2, no ST segment elevation, rate of 89, AR interval 166, QRS duration 90, QTC 462 Medical Decision Making - Medical Decision Making 31-year-old male presenting with suspected seizure, fall. Very superficial left parietal scalp hematoma. Patient is alert and oriented, tachycardic and mildly hypertensive upon arrival. He is moving all extremities symmetrically. He is diaphoretic. He complains of headache. He is alert and oriented but somewhat slow to respond. Workup is initiated and laboratory testing, EKG, CT of the brain and cervical spine. CT is performed which does show a left sided large epidural hematoma without midline shift. There is local mass effect. IV Keppra and IV mannitol are initiated. I discussed case with the transfer team at [facility] in [facility] accepting physician is Dr. Ny. Patient will be transported by air ambulance. He has normal CBC, CMP showing a metabolic acidosis likely secondary to lactic acidosis of 7.2 which is likely secondary to seizure. Patient remains alert, he is hypertensive, moving all extremities. He is transported by [facility]. - Lab Data Result diagrams: 08/22/21 10:08/22/21 10: Lab Results 08/22/21 08/22/21 08/22/21 Range/Units 10:26 10: 10: WBC 5.2 (3.8-10.6) k/uL RBC 4.33 (4.30-5.90) m/uL Hgb 15.4 (13.0-17.5) gm/dL Hct 45.0 (39.0-53.0) % MCV 103.9 H (80.0-100.0) fL MCH 35.6 H (25.0-35.0) pg MCHC 34.3 (31.0-37.0) g/dL RDW 14.7 (11.5-15.5) % Plt Count 234 (150-450) k/uL MPV 8.0 Neutrophils % 77 % Lymphocytes % 13 % Monocytes % 8 % Eosinophils % 0 % Basophils % 0 % Neutrophils # 4.0 (1.3-7.7) k/uL Lymphocytes # 0.7 L (1.0-4.8) k/uL Monocytes # 0.4 (0-1.0) k/uL Eosinophils # 0.0 (0-0.7) k/uL Basophils # 0.0 (0-0.2) k/uL Macrocytosis Slight Sodium 135 L (137-145) mmol/L Potassium 4.1 (3.5-5.1) mmol/L Chloride 101 (98-107) mmol/L Carbon Dioxide 19 L (22-30) mmol/L Anion Gap 15 mmol/L BUN 8 L (9-20) mg/dL Creatinine 0.74 (0.66-1.25) mg/dL Est GFR (CKD-EPI)AfAm >90 (>60 ml/min/1.73 sqM) Est GFR (CKD-EPI)NonAf >90 (>60 ml/min/1.73 sqM) Glucose 172 H (74-99) mg/dL Lactic Ac Sepsis Rflx Plasma Lactic Acid Man 7.2 H* (0.7-2.0) mmol/L Calcium 9.7 (8.4-10.2) mg/dL Magnesium 2.0 (1.6-2.3) mg/dL Total Bilirubin 1.2 (0.2-1.3) mg/dL AST 62 H (17-59) U/L ALT 35 (4-49) U/L Alkaline Phosphatase 148 H (38-126) U/L Total Protein 7.7 (6.3-8.2) g/dL Albumin 4.5 (3.5-5.0) g/dL Urine Color Urine Appearance (Clear) Urine pH (5.0-8.0) Ur Specific Wanda (1.001-1.035) Urine Protein (Negative) Urine Glucose (UA) (Negative) Urine Ketones (Negative) Urine Blood (Negative) Urine Nitrite (Negative) Urine Bilirubin (Negative) Urine Urobilinogen (<2.0) mg/dL Ur Leukocyte Esterase (Negative) Urine RBC (0-5) /hpf Urine WBC (0-5) /hpf Amorphous Sediment (None) /hpf Urine Mucus (None) /hpf Urine Opiates Screen (NotDetected) Ur Oxycodone Screen (NotDetected) Urine Methadone Screen (NotDetected) Ur Propoxyphene Screen (NotDetected) Ur Barbiturates Screen (NotDetected) U Tricyclic Antidepress (NotDetected) Ur Phencyclidine Scrn (NotDetected) Ur Amphetamines Screen (NotDetected) U Methamphetamines Scrn (NotDetected) U Benzodiazepines Scrn (NotDetected) Urine Cocaine Screen (NotDetected) U Marijuana (THC) Screen (NotDetected) Serum Alcohol <10 mg/dL 08/22/21 08/22/21 Range/Units 11:01 11:24 WBC (3.8-10.6) k/uL RBC (4.30-5.90) m/uL Hgb (13.0-17.5) gm/dL Hct (39.0-53.0) % MCV (80.0-100.0) fL MCH (25.0-35.0) pg MCHC (31.0-37.0) g/dL RDW (11.5-15.5) % Plt Count (150-450) k/uL MPV Neutrophils % % Lymphocytes % % Monocytes % % Eosinophils % % Basophils % % Neutrophils # (1.3-7.7) k/uL Lymphocytes # (1.0-4.8) k/uL Monocytes # (0-1.0) k/uL Eosinophils # (0-0.7) k/uL Basophils # (0-0.2) k/uL Macrocytosis Sodium (137-145) mmol/L Potassium (3.5-5.1) mmol/L Chloride (98-107) mmol/L Carbon Dioxide (22-30) mmol/L Anion Gap mmol/L BUN (9-20) mg/dL Creatinine (0.66-1.25) mg/dL Est GFR (CKD-EPI)AfAm (>60 ml/min/1.73 sqM) Est GFR (CKD-EPI)NonAf (>60 ml/min/1.73 sqM) Glucose (74-99) mg/dL Lactic Ac Sepsis Rflx Y Plasma Lactic Acid Man (0.7-2.0) mmol/L Calcium (8.4-10.2) mg/dL Magnesium (1.6-2.3) mg/dL Total Bilirubin (0.2-1.3) mg/dL AST (17-59) U/L ALT (4-49) U/L Alkaline Phosphatase (38-126) U/L Total Protein (6.3-8.2) g/dL Albumin (3.5-5.0) g/dL Urine Color Yellow Urine Appearance Cloudy (Clear) Urine pH 7.5 (5.0-8.0) Ur Specific Wanda 1.017 (1.001-1.035) Urine Protein 2+ H (Negative) Urine Glucose (UA) 2+ H (Negative) Urine Ketones 1+ H (Negative) Urine Blood Trace H (Negative) Urine Nitrite Negative (Negative) Urine Bilirubin Negative (Negative) Urine Urobilinogen 2.0 (<2.0) mg/dL Ur Leukocyte Esterase Negative (Negative) Urine RBC <1 (0-5) /hpf Urine WBC <1 (0-5) /hpf Amorphous Sediment Few H (None) /hpf Urine Mucus Occasional H (None) /hpf Urine Opiates Screen Not Detected (NotDetected) Ur Oxycodone Screen Not Detected (NotDetected) Urine Methadone Screen Not Detected (NotDetected) Ur Propoxyphene Screen Not Detected (NotDetected) Ur Barbiturates Screen Detected H (NotDetected) U Tricyclic Antidepress Not Detected (NotDetected) Ur Phencyclidine Scrn Not Detected (NotDetected) Ur Amphetamines Screen Not Detected (NotDetected) U Methamphetamines Scrn Not Detected (NotDetected) U Benzodiazepines Scrn Not Detected (NotDetected) Urine Cocaine Screen Not Detected (NotDetected) U Marijuana (THC) Screen Detected H (NotDetected) Serum Alcohol mg/dL Critical Care Time Critical Care Time: Yes Total Critical Care Time: 35 Disposition Clinical Impression: Epidural hematoma, Alcohol use disorder, Generalized seizure Disposition: OTHER INSTITUTION NOT DEFINED Condition: Serious Instructions (If sedation given, give patient instructions): Seizure/Epilepsy Discharge Instructions & Follow-Up Is patient prescribed a controlled substance at d/c from ED?: No Referrals: Uday Pennington Jr, DO [Primary Care Provider] - 1-2 days Time of Disposition: 11:41 - Out of Hospital Transfer - Req. Specs Out of Hospital Transfer - Requested Specifics: Other Emergency Center ([facility]
[2021-08-22 10:54] LABS: ALT 35 U/L (4-49); AST 62 U/L (17-59); African American GFR (CKD) >90 (>60 ml/min/1.73 sqM); Albumin 4.5 g/dL (3.5-5.0); Alcohol <10 mg/dL; Alkaline Phosphatase 148 U/L (38-126); Anion Gap 15 mmol/L; Blood Urea Nitrogen 8 mg/dL (9-20); Calcium 9.7 mg/dL (8.4-10.2); Carbon Dioxide 19 mmol/L (22-30); Chloride 101 mmol/L (98-107); Glucose 172 mg/dL (74-99); Non-African American GFR(CKD) >90 (>60 ml/min/1.73 sqM); Potassium 4.1 mmol/L (3.5-5.1); Sodium 135 mmol/L (137-145); Total Bilirubin 1.2 mg/dL (0.2-1.3); Total Protein 7.7 g/dL (6.3-8.2)
[2021-08-22] MEDS ORDERED: levETIRAcetam IV 1,500 MG in SALINE 1 100ML.BAG IVPB STA (11:13)
[2021-08-22] MEDS ORDERED: SODIUM CHLORIDE 0.9% 1,000 ML IV SCH (11:15)
[2021-08-22] MEDS ORDERED: SODIUM CHLORIDE 0.9% 1,000 ML IV ONE (11:15)
[2021-08-22] MEDS ORDERED: MANNITOL IV STA (11:28)
[2021-08-22] MEDS ORDERED: SALINE IV STA (11:28)
[2021-08-22] MEDS ORDERED: LORazepam 2 MG/ML INJ IV STA (11:36)
--- NOTE | 2021-08-22 11:40 | CT ---
EXAMINATION TYPE: CT brain fanyine wo con DATE OF EXAM: 08/22/2021 COMPARISON: CT brain 05/02/2020 HISTORY: Seizure/Fall CT DLP: 1236.3 mGycm Automated exposure control for dose reduction was used. TECHNIQUE: CT scan of the head and cervical spine are performed without contrast. FINDINGS: There is epidural hematoma on the left at the middle cranial fossa laterally extending ov er the parietal region with local mass effect, the hemorrhage measures 7.4 x 6.8 x 2.2 cm. Left later al ventricle shows an asymmetric appearance due to the mass effect. There is some associated midline shift. Suspect a nondepressed fracture on axial image 19 the bone window at the level of the left tem poral bone. There is underlying cortical atrophy. Inflammatory changes present in the right maxillary sinus, frontal sinus. Cervical spine is visualized in its entirety from C1 through upper thoracic levels and demonstrates s atisfactory alignment without evidence of acute fracture or dislocation. Prevertebral soft tissue ap pears within normal limits. The C1-C2 articulation is unremarkable. Bilateral maxillary sinuses heath w inflammatory change. Patient is status post left hemithyroidectomy. IMPRESSION: 1. Epidural hematoma and nondepressed skull fracture, Dr. Leavitt is aware at the time of interpretation 2. There is no acute fracture or dislocation evident in the cervical spine.
[2021-08-22 11:57] VITALS: RESP 18
[2021-08-22 11:58] VITALS: BP 173/111; PULSE 84
[2021-08-22 12:43] LABS: Amorphous Sediment,Urine Few /hpf; Appearance,Urine Cloudy (Clear); Bilirubin,Urine Negative (Negative); Blood,Urine Trace (Negative); Color,Urine Yellow; Glucose,Urine (UA) 2+ (Negative); Ketones,Urine 1+ (Negative); Leukocyte Esterase,Urine Negative (Negative); Mucus,Urine Occasional /hpf; Nitrite,Urine Negative (Negative); PH, Urine 7.5 (5.0-8.0); Protein,Urine 2+ (Negative); RBC,Urine <1 /hpf (0-5); Specific Gravity,Urine 1.017 (1.001-1.035); WBC,Urine <1 /hpf (0-5)
[2021-08-22 12:57] LABS: Amphetamine Screen,Urine Not Detected (NotDetected); Barbiturate Screen,Urine Detected (NotDetected); Benzodiazepines Screen,Urine Not Detected (NotDetected); Cocaine Screen,Urine Not Detected (NotDetected); Methadone Screen, Urine Not Detected (NotDetected); Opiate Screen,Urine Not Detected (NotDetected); Oxycodone Screen, Urine Not Detected (NotDetected); Phencyclidine Screen,Urine Not Detected (NotDetected); Tricyclic Antidepressant,Urine Not Detected (NotDetected); Urn Cannabinoid Scrn Detected (NotDetected)
== END 2021-08-22 12:15 | disposition other institution (70) ==
LOC: EC 09:54
DX: S06.4X0A Epidural hemorrhage without loss of consciousness, initial encounter (principal); I10 Essential (primary) hypertension; F41.9 Anxiety disorder, unspecified; F32.9 Major depressive disorder, single episode, unspecified; F17.200 Nicotine dependence, unspecified, uncomplicated; F12.90 Cannabis use, unspecified, uncomplicated; Z72.89 Other problems related to lifestyle; Z88.6 Allergy status to analgesic agent; Z88.5 Allergy status to narcotic agent; W01.0XXA Fall on same level from slipping, tripping and stumbling without subsequent striking against object, initial encounter
CPT/HCPCS: 99291; 96365; 96375 ×2; 96361 ×2; 36415; 93005; 80053; 83605; 83735; 85025; 81001; 80306; 72125; 70450; G0480; J2060; J1953; 80320

== ENCOUNTER 2021-12-17 22:46 | Emergency (ER) | payer OTHER ==
[2021-12-17 23:14] VITALS: BP 156/101; PULSE 87; RESP 18; TEMP 97.9
--- NOTE | 2021-12-17 23:31 | XR ---
EXAMINATION TYPE: XR shoulder complete LT DATE OF EXAM: 12/17/2021 COMPARISON: NONE HISTORY: Shoulder pain. Fall. TECHNIQUE: 3 views FINDINGS: There is no evidence of fracture nor dislocation. Glenohumeral joint is intact. There are n o pathologic calcifications. AC joint is intact. IMPRESSION: Negative left shoulder exam. No fracture.
[2021-12-18] MEDS ORDERED: ACET/COD 300 MG/30 MG STARTER PACK 6 TAB BTL PO STA (01:20)
--- NOTE | 2021-12-18 01:20 | ED ---
General Adult HPI - General Chief complaint: Extremity Injury, Upper Stated complaint: Left Shoulder injury, Mental Health Time Seen by Provider: 12/18/21 00:43 Source: patient Mode of arrival: ambulatory Limitations: no limitations - History of Present Illness Initial comments: Dictation was produced using [employer] dictation software. please excuse any grammatical, word or spelling errors. Chief Complaint: 31-year-old male presents with left shoulder pain History of Present Illness: Patient 31-year-old male states he fell 2 days ago landing his left shoulder. His concern that he hurt it. Has pain when he moves his arm reveals also pain in his left trapezius. Patient states that he came because he wanted get checked out and he had a ride. He states that his friend was being evaluated for heart troubles. Patient has no other complaints. He states he has history of chronic left upper extremity injury from laceration suf fered several years ago. His chronic contractions to his left hand. The ROS documented in this emergency department record has been reviewed and confirmed by me. Those systems with pertinent positive or negative responses have been documented in the HPI. All other systems are other negative and/or noncontributory. PHYSICAL EXAM: General Impression: Alert and oriented x3, not in acute distress HEENT: Normocephalic atraumatic, extra-ocular movements intact, pupils equal and reactive to light bilaterally, mucous membranes moist. Cardiovascular: Heart regular rate and rhythm Chest: Able to complete full sentences, no retractions, no tachypnea Abdomen: abdomen soft, non-tender, non-distended, no organomegaly Musculoskeletal: Pulses present and equal in all extremities, no peripheral merry a, palpatory tenderness over the left trapezius, chronic contraction of the left hand with scar at the mid biceps region, he has pain with abduction and external rotation Motor: no focal deficits noted Neurological: CN II-XII grossly intact, no focal motor or sensory deficits noted Skin: Intact with no visualized rashes Psych: Normal affect and mood ED course: Year old male presents with left should injury. He has clinical presentation consistent with left trapezius strain and perhaps a rotator cuff injury. Shoulder x-ray is unremarkable. Signs are unremarkable. Patient given arm sling in starter pack for by mouth analgesia. He is referred to orthopedic surgery. - Related Data Home Medications Medication Instructions Recorded Confirmed Gabapentin 800 mg PO TID 06/07/20 06/07/20 Multivitamins, Thera [Multivitamin 1 tab PO DAILY 06/07/20 06/07/20 (formulary)] Phenytoin Sodium Extended 100 mg PO TID 06/07/20 06/07/20 [Dilantin] Previous Rx's Medication Instructions Recorded Nicotine 21Mg/24Hr Patch [Habitrol] 1 patch TRANSDERM DAILY #30 patch 05/04/20 Phenytoin Sodium Extended 100 mg PO TID 7 Days #21 capsule 06/07/20 [Dilantin] Allergies Allergy/AdvReac Type Severity Reaction Status Date / Time pollen extracts Allergy Unknown Verified 12/17/21 23:14 ibuprofen AdvReac Testicular Verified 12/17/21 23:14 Pain naproxen AdvReac stomach Verified 12/17/21 23:14 pain and cramping NSAIDS (Non-Steroidal AdvReac Stomach Verified 12/17/21 23:14 Anti-Inflamma pain and cramping Review of Systems ROS Statement: Those systems with pertinent positive or pertinent negative responses have been documented in the HPI. ROS Other: All systems not noted in ROS Statement are negative. Past Medical History Past Medical History: Hypertension, Seizure Disorder Additional Past Medical History / Comment(s): ETOH abuse, pt believes his seizures are r/t alcoholism-last seizure 05/02/20, chronic pain L arm History of Any Multi-Drug Resistant Organisms: None Reported Past Surgical History: Orthopedic Surgery Additional Past Surgical History / Comment(s): left arm surgery x8 d/t injury Past Anesthesia/Blood Transfusion Reactions: No Reported Reaction Past Psychological History: Anxiety, Depression Smoking Status: Current every day smoker Past Alcohol Use History: Daily, Heavy Past Drug Use History: Marijuana - Past Family History Mother Family Medical History: COPD Additional Family Medical History / Comment(s): Mother is . Father Family Medical History: Seizure Disorder Additional Family Medical History / Comment(s): Father is . etoh, seizures. General Exam Limitations: no limitations Course Vital Signs 12/17/21 23:09 Temperature 97.9 F Pulse Rate 87 Respiratory 18 Rate Blood Pressure 156/101 O2 Sat by Pulse 98 Oximetry Disposition Clinical Impression: Injury of left shoulder Disposition: HOME SELF-CARE Condition: Fair Instructions (If sedation given, give patient instructions): Shoulder Sprain (ED), Rotator Cuff Injury (ED) Is patient prescribed a controlled substance at d/c from ED?: No Referrals: Barak Asencio MD [STAFF PHYSICIAN] - 1-2 days
== END 2021-12-18 01:53 | disposition home or self-care (01) ==
LOC: EC 22:46
DX: S49.92XA Unspecified injury of left shoulder and upper arm, initial encounter (principal); I10 Essential (primary) hypertension; G40.909 Epilepsy, unspecified, not intractable, without status epilepticus; F32.A Depression, unspecified; F41.9 Anxiety disorder, unspecified; F17.200 Nicotine dependence, unspecified, uncomplicated; F12.90 Cannabis use, unspecified, uncomplicated; Z79.899 Other long term (current) drug therapy; W01.0XXA Fall on same level from slipping, tripping and stumbling without subsequent striking against object, initial encounter
CPT/HCPCS: 99284

== ENCOUNTER 2022-05-20 06:15 | Observation (INO) | payer OTHER ==
[2022-05-20] MEDS ORDERED: SODIUM CHLORIDE 0.9% 2,000 ML IV ONE (06:35)
--- NOTE | 2022-05-20 06:54 | ED ---
Psych HPI - General Chief Complaint: Psychiatric Symptoms Stated Complaint: Alcohol Withdrawal Time Seen by Provider: 05/20/22 06:28 Source: patient, RN notes reviewed Mode of arrival: ambulatory Limitations: no limitations - History of Present Illness Initial Comments: This a 31-year-old male presents emergency Department with sister chief complaint of alcohol withdrawal, seizure, hallucinations. Patient states he stopped drinking on Friday he's had 2 seizures witnessed by family members at home. 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 Patient states that he's had extreme tremors states she's been hallucinating family states she 's been visualizing and having tactile hallucinations. Patient denies any drug use. He does been to some nausea vomiting or fevers or chills. - Related Data Home Medications Medication Instructions Recorded Confirmed Gabapentin 800 mg PO TID 06/07/20 06/07/20 Multivitamins, Thera [Multivitamin 1 tab PO DAILY 06/07/20 06/07/20 (formulary)] Phenytoin Sodium Extended 100 mg PO TID 06/07/20 06/07/20 [Dilantin] Previous Rx's Medication Instructions Recorded Nicotine 21Mg/24Hr Patch [Habitrol] 1 patch TRANSDERM DAILY #30 patch 05/04/20 Phenytoin Sodium Extended 100 mg PO TID 7 Days #21 capsule 06/07/20 [Dilantin] Allergies Allergy/AdvReac Type Severity Reaction Status Date / Time pollen extracts Allergy Unknown Verified 05/20/22 06:18 ibuprofen AdvReac Testicular Verified 05/20/22 06:18 Pain naproxen AdvReac stomach Verified 05/20/22 06:18 pain and cramping NSAIDS (Non-Steroidal AdvReac Stomach Verified 05/20/22 06:18 Anti-Inflamma pain and cramping Review of Systems ROS Statement: Those systems with pertinent positive or pertinent negative responses have been documented in the HPI. ROS Other: All systems not noted in ROS Statement are negative. Past Medical History Past Medical History: Hypertension, Seizure Disorder Additional Past Medical History / Comment(s): ETOH abuse, pt believes his seizures are r/t alcoholism-last seizure 05/02/20, chronic pain L arm History of Any Multi-Drug Resistant Organisms: None Reported Past Surgical History: Orthopedic Surgery Additional Past Surgical History / Comment(s): left arm surgery x8 d/t injury Past Anesthesia/Blood Transfusion Reactions: No Reported Reaction Past Psychological History: Anxiety, Depression Smoking Status: Current every day smoker Past Alcohol Use History: Daily, Heavy Past Drug Use History: Marijuana - Past Family History Mother Family Medical History: COPD Additional Family Medical History / Comment(s): Mother is . Father Family Medical History: Seizure Disorder Additional Family Medical History / Comment(s): Father is . etoh, seizures. General Exam Limitations: no limitations General appearance: alert, in no apparent distress Head exam: Present: atraumatic, normocephalic. Absent: normal inspection (Left- sided incision scar noted) Eye exam: Present: normal appearance, PERRL, EOMI. Absent: scleral icterus, conjunctival injection, periorbital swelling ENT exam: Present: normal exam, normal oropharynx, mucous membranes moist Neck exam: Present: normal inspection, full ROM. Absent: tenderness, meningismus, lymphadenopathy Respiratory exam: Present: normal lung sounds bilaterally. Absent: respiratory distress, wheezes, rales, rhonchi, stridor Cardiovascular Exam: Present: normal rhythm, tachycardia, normal heart sounds. Absent: systolic murmur, diastolic murmur, rubs, gallop, clicks GI/Abdominal exam: Present: soft, normal bowel sounds. Absent: distended, tenderness, guarding, rebound, rigid Neurological exam: Present: alert, oriented X3 Psychiatric exam: Present: anxious Skin exam: Present: warm, dry, intact, normal color. Absent: rash Course Vital Signs 05/20/22 05/20/22 06:18 07:22 Temperature 98.4 F Pulse Rate 122 H 90 Respiratory 20 16 Rate Blood Pressure 149/91 O2 Sat by Pulse 99 98 Oximetry Medical Decision Making - Medical Decision Making 31-year-old male presents emergency from for alcohol withdrawal, seizure, hallucinations. Patient will be admitted for alcohol withdrawal along with EPS evaluation. Patient denies any suicidal or homicidal. - Lab Data Result diagrams: 05/20/22 07:03 05/20/22 07:03 Lab Results 05/20/22 05/20/22 Range/Units 07:03 07:03 WBC 8.7 (3.8-10.6) k/uL RBC 4.39 (4.30-5.90) m/uL Hgb 14.8 (13.0-17.5) gm/dL Hct 45.6 (39.0-53.0) % MCV 103.9 H (80.0-100.0) fL MCH 33.7 (25.0-35.0) pg MCHC 32.5 (31.0-37.0) g/dL RDW 15.4 (11.5-15.5) % Plt Count 234 (150-450) k/uL MPV 8.3 Neutrophils % 76 % Lymphocytes % 11 % Monocytes % 8 % Eosinophils % 1 % Basophils % 2 % Neutrophils # 6.6 (1.3-7.7) k/uL Lymphocytes # 1.0 (1.0-4.8) k/uL Monocytes # 0.7 (0-1.0) k/uL Eosinophils # 0.0 (0-0.7) k/uL Basophils # 0.2 (0-0.2) k/uL Macrocytosis Moderate Sodium 138 (137-145) mmol/L Potassium 3.5 (3.5-5.1) mmol/L Chloride 100 (98-107) mmol/L Carbon Dioxide 25 (22-30) mmol/L Anion Gap 13 mmol/L BUN 12 (9-20) mg/dL Creatinine 0.79 (0.66-1.25) mg/dL Est GFR (CKD-EPI)AfAm >90 (>60 ml/min/1.73 sqM) Est GFR (CKD-EPI)NonAf >90 (>60 ml/min/1.73 sqM) Glucose 94 (74-99) mg/dL Calcium 9.3 (8.4-10.2) mg/dL Magnesium 1.5 L (1.6-2.3) mg/dL Total Bilirubin 1.2 (0.2-1.3) mg/dL AST 54 (17-59) U/L ALT 41 (4-49) U/L Alkaline Phosphatase 146 H (38-126) U/L Total Protein 7.6 (6.3-8.2) g/dL Albumin 4.2 (3.5-5.0) g/dL Disposition Clinical Impression: Alcohol withdrawal, Hallucinations Disposition: ADMITTED IP TO THIS [facility] Condition: Fair Referrals: Uday Pennington Jr, [Primary Care Provider] - 1-2 days Time of Disposition: 08:28
[2022-05-20 07:17] LABS: Basophils # (A) 0.2 k/uL (0-0.2); Basophils % (A) 2 %; Eosinophils % (A) 1 %; HCT 45.6 % (39.0-53.0); HGB 14.8 gm/dL (13.0-17.5); Lymphocytes % (A) 11 %; MCH 33.7 pg (25.0-35.0); MCHC 32.5 g/dL (31.0-37.0); MCV 103.9 fL (80.0-100.0); Macrocytosis Moderate; Mean Platelet Volume 8.3; Monocytes # (A) 0.7 k/uL (0-1.0); Monocytes % (A) 8 %; Neutrophils # (A) 6.6 k/uL (1.3-7.7); Neutrophils % (A) 76 %; Platelet Count 234 k/uL (150-450); RBC 4.39 m/uL (4.30-5.90); RDW 15.4 % (11.5-15.5); WBC 8.7 k/uL (3.8-10.6)
[2022-05-20 07:44] LABS: ALT 41 U/L (4-49); AST 54 U/L (17-59); African American GFR (CKD) >90 (>60 ml/min/1.73 sqM); Albumin 4.2 g/dL (3.5-5.0); Alkaline Phosphatase 146 U/L (38-126); Anion Gap 13 mmol/L; Blood Urea Nitrogen 12 mg/dL (9-20); Calcium 9.3 mg/dL (8.4-10.2); Carbon Dioxide 25 mmol/L (22-30); Chloride 100 mmol/L (98-107); Glucose 94 mg/dL (74-99); Magnesium 1.5 mg/dL (1.6-2.3); Non-African American GFR(CKD) >90 (>60 ml/min/1.73 sqM); Potassium 3.5 mmol/L (3.5-5.1); Sodium 138 mmol/L (137-145); Total Bilirubin 1.2 mg/dL (0.2-1.3); Total Protein 7.6 g/dL (6.3-8.2)
[2022-05-20] MEDS ORDERED: MAGNESIUM SULFATE-D5W PMX 1 GM in DEXTROSE/WATER 1 100ML.BAG IVPB ONE (08:16)
[2022-05-20] MEDS ORDERED: ONDANSETRON 4 MG/2 ML VIAL IVP PRN (08:28)
[2022-05-20] MEDS ORDERED: NALOXONE 0.4 MG/ML 1 ML VIAL IV PRN (08:28)
[2022-05-20] MEDS ORDERED: chlordiazePOXIDE 25 MG CAP PO PRN ×3 (08:32)
[2022-05-20] MEDS ORDERED: NICOTINE 21MG/24HR PATCH TRANSDERM STA (08:47)
[2022-05-20] MEDS ORDERED: Magnesium Replacement Protocol 1 EACH MISC MISCELLANE PRN (09:16)
[2022-05-20] MEDS: MAGNESIUM SULFATE-D5W PMX 1 GM in DEXTROSE/WATER 1 100ML.BAG IVPB SCH ×3 (09:40→12:35)
[2022-05-20 10:01] LABS: Appearance,Urine Clear (Clear); Bilirubin,Urine Negative (Negative); Blood,Urine Negative (Negative); Color,Urine Colorless; Glucose,Urine (UA) Negative (Negative); Ketones,Urine Negative (Negative); Leukocyte Esterase,Urine Negative (Negative); Nitrite,Urine Negative (Negative); Protein,Urine Negative (Negative); Specific Gravity,Urine 1.003 (1.001-1.035); Urobilinogen,Urine <2.0 mg/dL (<2.0)
[2022-05-20 10:28] LABS: Amphetamine Screen,Urine Not Detected (NotDetected); Barbiturate Screen,Urine Not Detected (NotDetected); Benzodiazepines Screen,Urine Detected (NotDetected); Cocaine Screen,Urine Not Detected (NotDetected); Methadone Screen, Urine Not Detected (NotDetected); Opiate Screen,Urine Not Detected (NotDetected); Oxycodone Screen, Urine Not Detected (NotDetected); Phencyclidine Screen,Urine Not Detected (NotDetected); Tricyclic Antidepressant,Urine Not Detected (NotDetected); Urn Cannabinoid Scrn Detected (NotDetected)
[2022-05-20] MEDS ORDERED: Potassium Replacement Protocol 1 EACH MISC MISCELLANE PRN (11:31)
[2022-05-20] MEDS ORDERED: ACETAMINOPHEN TAB 325 MG TAB PO STA (12:33)
[2022-05-20] MEDS: PANTOPRAZOLE 40 MG/10 ML VIAL IVP SCH (13:29)
[2022-05-20] MEDS: chlordiazePOXIDE 25 MG CAP PO PRN ×2 (15:08→22:26)
--- NOTE | 2022-05-20 17:18 | P.HPIM ---
History of Present Illness H&P Date: 05/20/22 Chief Complaint: Intoxicated, seizures This is a 31-year-old gentleman with history of alcohol abuse, ongoing nicotine dependence, marijuana use, seizure disorder and noncompliance with antiepileptic medication regimen and multiple other medical issues, presented to the ER in toxicated with reported seizures.Denies trauma, denies incontinence. Denies lightheadedness dizziness or focal deficits. Denies headache. Denies chest pain, palpitations or shortness of breath. Reports he has not taken his meds for over a month .Continues to drink 7-10 beers per day in addition to marijuana use. Toxicology reporting marijuana detected high, in addition to benzos. Serum alcohol level ordered/pending. Elevated MCV ,103.9. Magnesium level I.5, renal function stable. Alk phos 146. Afebrile, normal WBC. Review of Systems ROS Statement: Those systems with pertinent positive or pertinent negative responses have been documented in the HPI. ROS Other: All systems not noted in ROS Statement are negative. Past Medical History Past Medical History: Hypertension, Seizure Disorder Additional Past Medical History / Comment(s): ETOH abuse, brain injury/surgery/seizures, L arm injury/chronic pain, L hand contractures, chronic headaches, chronic L leg/foot pain, History of Any Multi-Drug Resistant Organisms: None Reported Past Surgical History: Orthopedic Surgery Additional Past Surgical History / Comment(s): Brain hematoma with surgery to remove/has 4 screws in skull, multiple L arm/hand surgeries/L leg/foot had nerves removed as donor for L arm. Past Anesthesia/Blood Transfusion Reactions: No Reported Reaction Smoking Status: Current every day smoker - Past Family History Mother Family Medical History: COPD Additional Family Medical History / Comment(s): Mother is . Father Family Medical History: Seizure Disorder Additional Family Medical History / Comment(s): Father is . etoh, seizures. Medications and Allergies Home Medications Medication Instructions Recorded Confirmed Type No Known Home Medications 05/20/22 05/20/22 History Allergies Allergy/AdvReac Type Severity Reaction Status Date / Time pollen extracts Allergy Unknown Verified 05/20/22 08:43 ibuprofen AdvReac Testicular Verified 05/20/22 08:43 Pain naproxen AdvReac stomach Verified 05/20/22 08:43 pain and cramping NSAIDS (Non-Steroidal AdvReac Stomach Verified 05/20/22 08:43 Anti-Inflamma pain and cramping Physical Exam Vitals: Vital Signs Temp Pulse Pulse Resp BP BP Pulse Ox 05/20/22 14:45 98.1 F 89 16 121/78 95 05/20/22 14:10 98.0 F 80 16 132/90 95 05/20/22 13:26 18 05/20/22 07:22 90 16 98 05/20/22 06:18 98.4 F 122 H 20 149/91 99 Intake and Output 05/20/22 05/20/22 05/20/22 06:59 14:59 22:59 Other: Weight 61.235 kg 61.235 kg PHYSICAL EXAM: VITAL SIGNS: As above GENERAL: Sitting up in bed, no acute distress, minimal tremors, mild diaphoresis HEENT: Conjunctivae normal. eyes normal. Oral mucosa dry NECK: No JVD. No thyroid enlargement. No LNs CARDIOVASCULAR: S1, S2 regular.No murmur RESPIRATION: Breath sounds diminished in the bases. No rhonchi or crackles. No bronchial breathing. ABDOMEN: Soft, nontender . No guarding. no masses palpable. No ascites, No hepatosplenomegaly.Bowel sounds heard. LEGS: No edema. no swelling PSYCHIATRY: Alert and oriented X3, mood and affect normal. NERVOUS SYSTEM: Cranial N 2-12 grossly normal. Moves all 4 limbs. Diffuse weakness No focal deficits. Strength and sensation grossly intact.. Skin: Warm and dry no rash Lymphatic system. No LN neck axilla. Results CBC & Chem 7: 05/20/22 07:03 05/20/22 07:03 Labs: Abnormal Lab Results - Last 24 Hours (Table) 05/20/22 05/20/22 05/20/22 Range/Units 07:03 07:03 09:32 MCV 103.9 H (80.0-100.0) fL Magnesium 1.5 L (1.6-2.3) mg/dL Alkaline Phosphatase 146 H (38-126) U/L U Benzodiazepines Scrn Detected H (NotDetected) U Marijuana (THC) Screen Detected H (NotDetected) Thrombosis Risk Factor Assmnt - Choose All That Apply Any of the Below Risk Factors Present?: No Other Risk Factors: No Other congenital or acquired thrombophilia - If yes, enter type in comment: No Thrombosis Risk Factor Assessment Level: Very Low Risk Assessment and Plan Assessment: Alcohol intoxication with recurrent seizures secondary to noncompliance with antiepileptic med regimen -states 1 month as well as alcohol intoxication in a patient with history of seizure disorder. Alcohol abuse, reports drinking 7-10 beers a day Marijuana use Ongoing nicotine dependence Homeless Noncompliance with medications History of psychotic disorder Anxiety, depression Hypertension Hypomagnesemia Plan: Continue on current medication regime ,monitoring and symptomatic treatment. Patient reports he has not taken any of his medications 1 month... Reports his antiepileptic has changed... Attempting to obtain list from PCPs office as well as [facility]. Keppra will be initiated with seizure precautions, while obtaining patient's correct med list. Patient also reports he continues to have off-and-on suicidal ideations, therefore suicide precautions ordered/reinforced with radiation safety officer. Psychiatry consult in place, re commendations pending. CIWA protocol transitioned to Librium. Magnesium replacement protocol ordered .Social work/case management consulted regarding EtOH rehab. resources at discharge. Smoking cessation, alcohol abstinence reinforced. The impression and plan of care has been dictated as directed. : I performed a history and examination of this patient, discussed the same with the dictator. I agree with the dictator's note ,documented as a scribe. Any additional findings or plans will be noted.
[2022-05-20] MEDS: levETIRAcetam IV 500 MG in SODIUM CHLORIDE 0.9% 100 ML IVPB SCH ×2 (17:22→20:54)
[2022-05-20] MEDS: ACETAMINOPHEN TAB 325 MG TAB PO PRN (20:43)
[2022-05-20] MEDS ORDERED: traZODone HCL 50 MG TAB PO PRN (21:29)
[2022-05-21] MEDS: PANTOPRAZOLE 40 MG/10 ML VIAL IVP SCH (09:01)
[2022-05-21] MEDS: levETIRAcetam IV 500 MG in SODIUM CHLORIDE 0.9% 100 ML IVPB SCH (10:23)
[2022-05-21] MEDS ORDERED: NICOTINE 21MG/24HR PATCH TRANSDERM STA (10:58)
[2022-05-21] MEDS: ACETAMINOPHEN TAB 325 MG TAB PO PRN (11:00)
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
[2022-05-21] MEDS ORDERED: NALTREXONE HCL 50 MG TAB PO SCH (14:00)
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
--- NOTE | 2022-05-21 14:54 | CT ---
EXAMINATION TYPE: CT brain wo con CT DLP: 1035.3 mGycm, Automated exposure control for dose reduction was used. DATE OF EXAM: 05/21/2022 2:45 PM COMPARISON: Prior CT Brain from 08/22/2021 . CLINICAL INDICATION:Male, 31 years old with history of Seizure, fall, sore head, rule out SDH, Follow up of fall, seizure, ruling out subdural hemorrhage TECHNIQUE: Brain: Multiple axial CT images of the brain were obtained without IV contrast. FINDINGS: Brain: Extra-axial spaces: No abnormal extra-axial fluid collections. Ventricular system: Within normal limits Cerebral parenchyma: No acute intraparenchymal hemorrhage or mass effect. The hair-white junction is well differentiated. Cerebellum: Unremarkable. Mass effect: No evidence of midline shift. Intracranial vasculature: unremarkable Soft tissues: Normal. Calvarium/osseous structures: No depressed skull fracture. Postsurgical changes to the calvarium. Paranasal sinuses and mastoid air cells: Moderate paranasal sinus disease most proximal involving the maxillary sinuses bilaterally. Visualized orbits: Orbital contents are intact. IMPRESSION: 1. No acute intracranial process. No evidence of subdural hemorrhage 2. Moderate paranasal sinus disease
[2022-05-21 15:03] VITALS: BP 108/75; PULSE 69; RESP 16; TEMP 98.2
--- NOTE | 2022-05-21 15:25 | P.DS ---
Providers Date of admission: 05/20/22 08:35 Expected date of discharge: 05/21/22 Attending physician: Kalen Carrillo Consults: 05/20/22 08:28 Consult Physician Urgent Consulting Provider: Kevin Orona Consult Reason/Comments: Hallucinations, psychosis Do you want consulting provider notified?: Yes 05/20/22 18:06 Consult Physician Urgent Consulting Provider: Rafael Romero Consult Reason/Comments: seizures Do you want consulting provider notified?: Yes Primary care physician: [facility] Course: Final diagnoses Alcohol intoxication with recurrent seizures secondary to noncompliance with antiepileptic med regimen -states 1 month as well as alcohol intoxication in a patient with history of seizure disorder. Alcohol abuse, reports drinking 7-10 beers a day Marijuana use Ongoing nicotine dependence History of subdural hematoma, status post craniotomy on 08/25/2021. Noncompliance with medications History of psychotic disorder Anxiety, depression Hypertension Hypomagnesemia Hospital course:This is a 31-year-old gentleman with history of alcohol abuse, ongoing nicotine dependence, marijuana use, seizure disorder and noncompliance with antiepileptic medication regimen and multiple other medical issues, presented to the ER intoxicated with reported seizures, hallucinations.Denies trauma, denies incontinence. Denies lightheadedness dizziness or focal deficits. Denies headache. Denies chest pain, palpitations or shortness of breath. Reports he has not taken his meds for over a month .Continues to drink 7-10 beers per day in addition to marijuana use. Toxicology reporting marijuana detected high, in addition to benzos. Serum alcohol level ordered/pending. Elevated MCV ,103.9. Magnesium level I.5, renal function stable. Alk phos 146. Afebrile, normal WBC. Evaluated by psychiatry and neurology with recommendations noted and appreciated-cleared by psychiatry for discharge. Brain CT reported no acute intracranial process, no evidence of subdural hemorrhage. Patient will be discharged home today in a stable condition with guarded prognosis ,pending EEG and final DC recommendations and clearance per neurology. The impression and plan of care has been dictated as directed. : I performed a history and examination of this patient, discussed the same with the dictator. I agree with the dictator's note ,documented as a scribe. Any additional findings or plans will be noted. Patient Condition at Discharge: Stable Plan - Discharge Summary Discharge Rx Participant: No New Discharge Prescriptions: New traZODone HCL [Desyrel] 50 mg PO HS #30 tab chlordiazePOXIDE HCl [Librium] 10 mg PO TID #6 cap levETIRAcetam [Keppra] 750 mg PO Q12HR #60 tab Naltrexone HCl [Revia] 50 mg PO DAILY #30 tab Discharge Medication List Naltrexone HCl [Revia] 50 mg PO DAILY #30 tab 05/21/22 [Rx] chlordiazePOXIDE HCl [Librium] 10 mg PO TID #6 cap 05/21/22 [Rx] levETIRAcetam [Keppra] 750 mg PO Q12HR #60 tab 05/21/22 [Rx] traZODone HCL [Desyrel] 50 mg PO HS #30 tab 05/21/22 [Rx] Follow up Appointment(s)/Referral(s): Dr. RENEE Psychiatry [Other] - 1 Week Uday Pennington Jr, DO [Primary Care Provider] - 3 Days Activity/Diet/Wound Care/Special Instructions: Patient has been informed to [place] state law for no driving unless seizure free for 6 months, climbing ladders, operating dangerous machinery unsupervised swimming. Patient to be provided with rehab resources per case management/social work
--- NOTE | 2022-05-21 15:47 | EEG ---
ELECTROENCEPHALOGRAM REPORT DATE OF SERVICE: 05/21/2022 PREAMBLE: This is a 31-year-old male with seizure disorder, came with breakthrough seizures and alcohol withdrawals. EEG FINDINGS: This is a 21 channel digital EEG recorded with video component, utilizing 10/20 international system with referential and bipolar montages. Background consists of well developed, well regulated, moderate voltage activity in mixed frequencies of 10-11 hertz alpha mixed with very frequent low-voltage fast frequency beta activity seen in bihemispheric region, slightly better on the right side. 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 Some intermittent left temporal parietal slowing was seen in the theta range. No epileptiform activity was seen. Different stages of sleep were not seen. IMPRESSION: This is a mildly abnormal EEG due to: 1. Excessive low-voltage fast frequency beta activity, suggestive of medication effect. 2. 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 Intermittent focal slowing in the left temporal parietal region, which may suggest an underlying focal cortical neuronal dysfunction, although may be related to previous craniotomy. No definitive epileptiform activity was seen. MMODL / IJN: [id number] /
[2022-05-21 16:19] VITALS: BMI 18.3
[2022-05-21] MEDS ORDERED: traZODone HCL 50 MG TAB PO SCH (21:00)
== END 2022-05-21 16:35 | disposition home or self-care (01) ==
LOC: EC 06:15 → 4SSUR 08:35 → INTOOBSV 08:35 → 4SSUR 14:01 → UNDODISIN 05-21 16:35
PROVIDERS: ADMIT Family Medicine; ATTEND Family Medicine
DX: G40.909 Epilepsy, unspecified, not intractable, without status epilepticus (principal); F10.151 Alcohol abuse with alcohol-induced psychotic disorder with hallucinations; E83.42 Hypomagnesemia; F10.131 Alcohol abuse with withdrawal delirium; F10.121 Alcohol abuse with intoxication delirium; T42.76XA Underdosing of unspecified antiepileptic and sedative-hypnotic drugs, initial encounter; Z91.128 Patient's intentional underdosing of medication regimen for other reason; Z91.19 Patient's noncompliance with other medical treatment and regimen; I10 Essential (primary) hypertension; G89.29 Other chronic pain; M79.602 Pain in left arm; M79.672 Pain in left foot; M79.605 Pain in left leg; F41.9 Anxiety disorder, unspecified; F32.A Depression, unspecified; Z79.899 Other long term (current) drug therapy; Z88.6 Allergy status to analgesic agent; Z91.048 Other nonmedicinal substance allergy status; F17.210 Nicotine dependence, cigarettes, uncomplicated; Z71.41 Alcohol abuse counseling and surveillance of alcoholic; Z71.6 Tobacco abuse counseling; Z59.00 Homelessness unspecified; Z87.820 Personal history of traumatic brain injury; Z98.890 Other specified postprocedural states; Z82.0 Family history of epilepsy and other diseases of the nervous system; Z82.5 Family history of asthma and other chronic lower respiratory diseases
CPT/HCPCS: 96376 ×2; 96366 ×2; 96367; 82075; 96361; 96365; 96375; 99285; 36415; 95816; 80053; 83735 ×2; 85025; 81003; 80306; 70450; G0378 ×2; G0480; S4990 ×2; J3360; J3475; J1953 ×2; C9113 ×2; 80320

== ENCOUNTER → 2023-08-21 | Outpatient (CLI) | payer OTHER | END | disposition home or self-care (01) | LOC: LABWHC1 12:56 | PROVIDERS: ATTEND Family Medicine | DX: R10.13 Epigastric pain (principal) ==

== ENCOUNTER → 2023-09-03 | Outpatient (CLI) | payer OTHER ==
[2023-09-04 02:55] LABS: ALT 12 U/L (10-49); AST 18 U/L (14-35); Albumin 4.8 d/dL (3.8-4.9); Albumin/Globulin Ratio 1.92 Ratio (1.60-3.17); Alkaline Phosphatase 123 U/L (41-126); Blood Urea Nitrogen 10.8 mg/dL (9.0-27.0); Calcium 10.4 mg/dL (8.7-10.3); Carbon Dioxide 27.3 mmol/L (21.6-31.8); Chloride 102 mmol/L (96-109); Globulin 2.5 d/dL (1.6-3.3); Glucose 88 mg/dL (70-110); Potassium 5.3 mmol/L (3.5-5.5); Sodium 141 mmol/L (135-145); Total Bilirubin 0.3 mg/dL (0.3-1.2); Total Protein 7.3 d/dL (6.2-8.2)
== END | disposition home or self-care (01) ==
LOC: LABWHC1 14:25
PROVIDERS: ATTEND Internal Medicine Infectious Disease
DX: B18.2 Chronic viral hepatitis C (principal)
CPT/HCPCS: 36415; 80053; 87522

== ENCOUNTER → 2023-09-12 | Outpatient (CLI) | payer OTHER | END | disposition home or self-care (01) | LOC: LABWHC1 12:54 | PROVIDERS: ATTEND Family Medicine | DX: R10.13 Epigastric pain (principal) | CPT/HCPCS: 87338 ==

== ENCOUNTER → 2023-10-20 | Day surgery (SDC) | payer OTHER ==
[2023-10-16 13:26] VITALS: BMI 18.3
[~2023-10-20] MED LIST: LACTATED RINGERS 1,000 ML IV SCH; LIDOCAINE 1% (10MG/ML) FOR IV START INTRADERMA PRN; LIDOCAINE 1% INJ 10MG/ML (20 ML MDV) ONE; PROPOFOL 10 MG/ML 20 ML VIAL IV ONE
[2023-10-20 09:00] VITALS: TEMP 97.8
--- NOTE | 2023-10-20 10:12 | P.OP ---
Date of Procedure: 10/20/23 Preoperative Diagnosis: Epigastric abdominal pain Postoperative Diagnosis: Moderate size hiatal hernia GERD Procedure(s) Performed: EGD Anesthesia: MAC Surgeon: Helder Howard Pathology: other (Antrum, esophagus) Condition: stable Disposition: PACU Description of Procedure: The patient's placed on the endoscopy table in the lateral position. He received IV sedation. The gastroscope was oropharynx past esophagus and stomach. Scope was placed through the pylorus. The first second portion of the duodenum appeared normal. Scope summer back the antrum this was mildly inflamed. Biopsies performed. Scope was unretroflexed and remainder the stomach appeared normal. The patient had a moderate size hiatal hernia. The GE junction was at 38 cm per the distal esophagus appeared mildly inflamed. Biopsies performed. The proximal esophagus appeared normal. Scope withdrawn for patient.
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
[2023-10-20 11:53] VITALS: BP 105/64; PULSE 54; RESP 18
--- NOTE | 2023-10-20 16:44 | NM ---
Nuclear medicine hepatobiliary scan. HISTORY: Pain. DOSAGE: The patient received 1.3 mcg CCK and 4.9 mCi of Technetium 99m Choletec. FINDINGS: There is normal hepatic extraction. The gallbladder is seen by 25 minutes. Ejection fract ion is 90%. IMPRESSION: 1. Ejection fraction of 90% can occasionally be associated with hyperdynamic gallbladder correlate cl inically.
== END ==
LOC: ORWHC2ENDO 08:27
PROVIDERS: ATTEND Surgery
DX: K29.50 Unspecified chronic gastritis without bleeding (principal); K44.9 Diaphragmatic hernia without obstruction or gangrene; K21.9 Gastro-esophageal reflux disease without esophagitis; F17.200 Nicotine dependence, unspecified, uncomplicated; F32.A Depression, unspecified; F41.9 Anxiety disorder, unspecified; G40.909 Epilepsy, unspecified, not intractable, without status epilepticus; F10.10 Alcohol abuse, uncomplicated; G89.29 Other chronic pain; Z86.19 Personal history of other infectious and parasitic diseases; Z98.890 Other specified postprocedural states; Z79.899 Other long term (current) drug therapy; Z88.6 Allergy status to analgesic agent
CPT/HCPCS: 88305; 78227; 43239; A9537; J2805

== ENCOUNTER 2024-03-03 07:33 | Day surgery (SDC) | payer OTHER ==
[2024-03-01 15:11] VITALS: BMI 20.3
[~2024-03-03 07:33] MED LIST changes: -LACTATED RINGERS 1,000 ML IV SCH; -LIDOCAINE 1% INJ 10MG/ML (20 ML MDV) ONE; -PROPOFOL 10 MG/ML 20 ML VIAL IV ONE; +droPERidol 5 MG/2 ML VIAL IVP ONE
[2024-03-03] MEDS: LACTATED RINGERS 1,000 ML IV SCH (08:23)
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
[2024-03-03] MEDS: IBUPROFEN 600 MG TAB PO ONE (08:34)
[2024-03-03] MEDS: ACETAMINOPHEN TAB 500 MG TAB PO PRN (08:34)
[2024-03-03] MEDS: DEXAMETHASONE SOD PHOSPHATE 4 MG/ML 1 ML VIAL IV ONE (08:35)
[2024-03-03] MEDS: ONDANSETRON 4 MG/2 ML VIAL IVP ONE (08:35)
[2024-03-03] MEDS: HEPARIN SODIUM,PORCINE 5,000 UNIT/ML 1 ML VIAL SQ PRN (08:38)
[2024-03-03] MEDS ORDERED: ROCURONIUM 10 MG/ML (5 ML VIAL) IV ONE (09:01)
[2024-03-03] MEDS ORDERED: GLYCOPYRROLATE 0.2 MG/ML 2 ML VIAL ONE (09:01)
[2024-03-03] MEDS ORDERED: MIDAZOLAM 2 MG/2 ML VIAL ONE (09:01)
[2024-03-03] MEDS ORDERED: fentaNYL (PF) 50 MCG/ML 2 ML AMP ONE (09:01)
[2024-03-03] MEDS ORDERED: ePHEDrine 50 MG/ML 1 ML VIAL ONE (09:01)
[2024-03-03] MEDS ORDERED: PROPOFOL 10 MG/ML 20 ML VIAL IV ONE (09:01)
[2024-03-03] MEDS ORDERED: SUCCINYLCHOLINE CHLORIDE 200 MG/10 ML VIAL IV ONE (09:01)
[2024-03-03] MEDS ORDERED: LIDOCAINE 1% INJ 10MG/ML (20 ML MDV) ONE (09:01)
[2024-03-03] MEDS ORDERED: NEOSTIGMINE 1 MG/ML 10 ML VIAL ONE (09:01)
[2024-03-03 09:19] LABS: African American GFR (CKD) >90 (>60 ml/min/1.73 sqM); Anion Gap 4 mmol/L; Blood Urea Nitrogen 10 mg/dL (9-20); Calcium 9.2 mg/dL (8.4-10.2); Carbon Dioxide 27 mmol/L (22-30); Chloride 107 mmol/L (98-107); Glucose 84 mg/dL (74-99); Non-African American GFR(CKD) >90 (>60 ml/min/1.73 sqM); Potassium 4.4 mmol/L (3.5-5.1); Sodium 138 mmol/L (137-145)
[2024-03-03] MEDS: LIDOCAINE 1%-EPI 1:100,000 20 ML VIAL SQ ONE (09:19)
--- NOTE | 2024-03-03 09:38 | P.OP ---
Date of Procedure: 03/03/24 Preoperative Diagnosis: cholecystitis Postoperative Diagnosis: cholecystitis Procedure(s) Performed: laparoscopic cholecystectomy Anesthesia: EMILY Surgeon: Helder Howard Estimated Blood Loss (ml): 5 Pathology: other (gallbladder) Condition: stable Disposition: PACU Description of Procedure: The patient was placed on the operating table. The patient received a general endotracheal tube anesthesia. The patients abdomen was prepped and draped in the usual sterile fashion. Through an infraumbilical stab incision, the fascia of the anterior abdominal wall was grasped with a pair of Kochers and then the Veress needle was placed in the peritoneal cavity. Position of the Veress needle was confirmed with positive drop test. The abdomen was then insufflated. After adequate insufflation, the 10 mm trocar was placed in the peritoneal cavity. Following this the laparoscope was placed in the peritoneal cavity. The patient was placed in the head-up, right side up position and then a 5 mm trocar was placed in the right lateral and right subcostal position under direct visualization. A 8 mm trocar was placed in the epigastric position. The gallbladder was grasped in the fundus and infundibulum. Traction on the gallbladder was placed in the lateral and the cephalad positions. The triangle of Calot was visualized.. The cystic duct was bluntly dissected until the union of the cystic duct and common bile duct was seen. A critical view of safety was achieved. The cystic duct was then divided and sealed with the Harmonic scissors. A PDS Endoloop was then placed throughout the cystic duct stump. The cystic artery divided and sealed with the Harmonic scissors. The gallbladder was then removed from the liver bed using Harmonic scissors. The gallbladder was then extracted through the epigastric port site. Operative field was checked for any bleeding spots and Harmonic scissors was used to coagulate the liver bed. The abdomen was irrigated. The trocars were removed. The skin was closed using interrupted 3-0 Vicryl suture. Dermabond dressing were applied. The patient tolerated the procedure well.
[2024-03-03] MEDS: HYDROmorphone 0.5 MG/0.5 ML SYRINGE IVP PRN (09:50)
[2024-03-03 10:19] VITALS: TEMP 97
[2024-03-03 11:01] VITALS: RESP 16
[2024-03-03 11:43] VITALS: BP 109/75; PULSE 54
== END 2024-03-03 11:56 | disposition home or self-care (01) ==
LOC: OR 07:33
PROVIDERS: ATTEND Surgery
DX: K81.1 Chronic cholecystitis (principal); G40.909 Epilepsy, unspecified, not intractable, without status epilepticus; F17.210 Nicotine dependence, cigarettes, uncomplicated; F32.A Depression, unspecified; F41.9 Anxiety disorder, unspecified; Z98.890 Other specified postprocedural states; Z83.6 Family history of other diseases of the respiratory system; Z79.899 Other long term (current) drug therapy; Z88.6 Allergy status to analgesic agent
CPT/HCPCS: 80048; 47562; J2250; J0330; J1644; J1100; J2710; J0690; J2405; J2001; J3010; J2704; J1170; 88304

== ENCOUNTER 2024-08-07 00:21 | Emergency (ER) | payer OTHER ==
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
[2024-08-07] MEDS: AMOXIC-POT CLAV 875-125MG 1 EACH TAB PO STA (02:53)
[2024-08-07 03:06] VITALS: BP 127/69; PULSE 87; RESP 16; TEMP 98.5
== END 2024-08-07 02:53 | disposition home or self-care (01) ==
LOC: EC 00:21
CPT/HCPCS: 99282

== ENCOUNTER → 2025-02-12 | Outpatient (CLI) | payer OTHER ==
[2025-02-13 06:28] LABS: Basophils # (A) 0.02 X 10*3/uL (0.00-0.10); Basophils % (A) 0.5 %; Eosinophils # (A) 0.03 X 10*3/uL (0.04-0.35); Eosinophils % (A) 0.7 %; HCT 44.7 % (39.6-50.0); HGB 14.6 g/dL (13.0-17.0); Lymphocytes # (A) 1.22 X 10*3/uL (0.90-5.00); Lymphocytes % (A) 29.3 %; MCH 30.3 pg (27.0-32.0); MCHC 32.7 g/dL (32.0-37.0); MCV 92.7 FL (80.0-97.0); Mean Platelet Volume 10.6 FL (9.5-12.2); Monocytes % (A) 7.2 %; NRBC Per 100 WBC 0 X 10*3/uL (0.00-0.01); Neutrophils # (A) 2.59 X 10*3/uL (1.80-7.70); Neutrophils % (A) 62.1 %; Platelet Count 302 X 10*3/uL (140-440); RBC 4.82 X 10*6/uL (4.40-5.60); RDW 12.4 % (11.5-14.5); WBC 4.17 X 10*3/uL (4.50-10.00)
[2025-02-13 09:44] LABS: ALT 19 U/L (10-49); AST 21 U/L (14-35); Albumin 4.6 g/dL (3.8-4.9); Alkaline Phosphatase 118 U/L (41-126); Blood Urea Nitrogen 6.8 mg/dL (9.0-27.0); Calcium 9.8 mg/dL (8.7-10.3); Carbon Dioxide 24.9 mmol/L (21.6-31.8); Chloride 113 mmol/L (96-109); Chol/HDL Ratio 3.68 Ratio; Globulin 2.3 g/dL (1.6-3.3); Glucose 97 mg/dL (70-110); LDL Cholesterol,Calculated 111.2 mg/dL (0.0-131.0); Potassium 4.5 mmol/L (3.5-5.5); Sodium 151 mmol/L (135-145); Total Bilirubin 0.5 mg/dL (0.3-1.2); Total Protein 6.9 g/dL (6.2-8.2); VLDL Calculation 12.62 mg/dL (5.00-40.00)
== END | disposition home or self-care (01) ==
LOC: LABWHC1 10:22
PROVIDERS: ATTEND Family Medicine
DX: M54.50 Low back pain, unspecified (principal); N04.21 Primary membranous nephropathy with nephrotic syndrome
CPT/HCPCS: 36415; 80053; 80061; 85025

== ENCOUNTER → 2025-02-18 | Outpatient (CLI) | payer OTHER ==
--- NOTE | 2025-02-18 15:42 | US ---
EXAMINATION TYPE: US kidneys/renal and bladder DATE OF EXAM: 02/18/2025 COMPARISON: NONE CLINICAL INDICATION: Male, 34 years old with history of M54.50 LOW BACK PAIN N04.21 PRIMARY MEMBRANOU S; TECHNIQUE: Grayscale imaging of the bilateral kidneys and urinary bladder: FINDINGS: EXAM MEASUREMENTS: Right Kidney: 10.6 x 4.3 x 5.1 cm Left Kidney: 9.6 x 5.7 x 4.1 cm Post Void Residual Volume: mL Right Kidney: wnl Left Kidney: wnl Bladder: wnl Bilateral Jets seen: yes There is no evidence for hydronephrosis at this point in time. No nephrolithiasis is seen. No delaney s are identified. The urinary bladder is anechoic. IMPRESSION: No evidence for obstructive uropathy or calculus. [facility], , 02/18/2025 3:39 PM
== END | disposition home or self-care (01) ==
LOC: RADUSWWP 14:19
PROVIDERS: ATTEND Family Medicine
DX: M54.50 Low back pain, unspecified (principal); N04.21 Primary membranous nephropathy with nephrotic syndrome
CPT/HCPCS: 76770

== ENCOUNTER → 2025-02-25 | Outpatient (CLI) | payer OTHER ==
--- NOTE | 2025-02-25 18:34 | XR ---
EXAMINATION TYPE: XR chest 2V DATE OF EXAM: 02/25/2025 11:41 AM COMPARISON: 12/06/2019 CLINICAL INDICATION: Male, 34 years old with history of R06.00 dyspnea, chest pain for a few months TECHNIQUE: Frontal and lateral views FINDINGS: The cardiomediastinal silhouette, aorta, and pulmonary vasculature are within normal limits. There is a small nodular focus of opacity at the left mid to lower lung. Otherwise, lungs and pleural spaces are clear. IMPRESSION: Small nodular opacity at the left mid to lower lung. Unable to exclude an early focus of pneumonia. F ollow-up radiograph in 4-6 weeks to ensure resolution. [facility], , 02/25/2025 6:31 PM
== END | disposition home or self-care (01) ==
LOC: RADXRMAIN 11:31
PROVIDERS: ATTEND Family Medicine
DX: R91.8 Other nonspecific abnormal finding of lung field (principal); R06.00 Dyspnea, unspecified
CPT/HCPCS: 71046